=== PATIENT | male | born 1955 | race Caucasian/White ===

== ENCOUNTER 2018-02-15 23:38 | Emergency (ER) | payer MEDICAID ==
[~2018-02-15] VITALS: Ht 180.3 cm; Wt 81.0 kg
[2018-02-15 23:45] VITALS: BP 144/106
== END 2018-02-16 00:30 | disposition left against medical advice (07) ==
LOC: ER 23:45
DX: Z53.21 Procedure and treatment not carried out due to patient leaving prior to being seen by health care provider (principal)

== ENCOUNTER 2018-10-22 12:27 | Inpatient (IN) | payer MEDICAID ==
[~2018-10-22] VITALS: Ht 185.4 cm; Wt 85.7 kg
[2018-10-22] MEDS ORDERED: KETOROLAC 60MG/2ML VIAL IM STA (15:44)
[2018-10-22 16:47] LABS: BASOPHILS % 0.7 % (0.0-2.0); EOSINOPHILS % 2.2 % (0.0-5.0); HEMATOCRIT. 47.2 % (42.0-52.0); HEMOGLOBIN. 16.2 g/dL (14.0-18.0); LYMPHOCYTES % 23.7 % (20.0-50.0); MEAN CORPUSCULAR HEMOGLOBIN 29.8 pg (28.0-32.0); MEAN CORPUSCULAR VOLUME 86.6 fL (80.0-94.0); MONOCYTES % 7.8 % (2.0-8.0); NEUTROPHILS % 65.6 % (40.0-76.0); PLATELET 194 x1000/uL (130-400); RED BLOOD CELL COUNT 5.45 mill/uL (4.7-6.1); RED CELL DISTRIBUTION WIDTH 15.1 % (11.6-14.6)
[2018-10-22 16:50] LABS: CHLORIDE 100 mEq/L (98-107)
[2018-10-22] MEDS ORDERED: SODIUM CHLORIDE 0.9% 1,000 ML IV ONE (17:11)
[2018-10-22] MEDS ORDERED: KCL 20MEQ/100ML PREMIX 100 ML IV ONE (17:45)
[2018-10-22] MEDS ORDERED: POTASSIUM CHLORIDE 20MEQ TABLET SR PO ONE (17:45)
[2018-10-22 18:08] LABS: PROTHROMBIN TIME 10.2 sec (9.6-11.0)
[2018-10-22 18:30] LABS: CHLORIDE 100 mEq/L (98-107)
[2018-10-22 18:34] LABS: ETHANOL BLOOD < 10 mg/dL
[2018-10-22] MEDS ORDERED: HYDROCODONE/ACETAMINOPHEN 5/325MG TABLET PO NR (18:48)
[2018-10-22] MEDS ORDERED: IBUPROFEN 600MG TABLET PO PRN (20:00)
[2018-10-22] MEDS ORDERED: CLONIDINE 0.1MG TABLET PO ONE (21:15)
[2018-10-22] MEDS ORDERED: CLON2TAB PO (23:15)
[2018-10-22] MEDS ORDERED: HYDR-4009 PO (23:15)
[2018-10-22 23:20] VITALS: BP 168/100
[2018-10-22 23:25] LABS: CHLORIDE 108 mEq/L (98-107)
[2018-10-22 23:28] VITALS: BP_SYST 116; BP_SYST 168; BP_DIAS 100; BP_DIAS 116
[2018-10-23] MEDS ORDERED: DEXTROSE 50% WATER 50ML SYRINGE IV PRN
[2018-10-23] MEDS: CLONAZEPAM 1MG TABLET PO SCH ×3 (00:08→17:48)
[2018-10-23] MEDS: HYDROCODONE/ACETAMINOPHEN 10/325MG TABLET PO PRN ×5 (00:09→21:42)
[2018-10-23] MEDS: LISINOPRIL 20MG TABLET PO SCH ×2 (00:09→08:28)
[2018-10-23] MEDS ORDERED: POTASSIUM CHLORIDE INJ 40 MEQ in DEXT 5% WATER 250 ML IV SCH ×2 (01:00→10:30)
[2018-10-23] MEDS: SODIUM CHLORIDE 0.9% 1,000 ML IV SCH (01:42)
[2018-10-23 02:30] VITALS: BP 146/74
[2018-10-23 04:00] VITALS: BP 106/76
[2018-10-23] MEDS: BLOOD SUGAR DIAGNOSTIC STRIP TEST SCH ×4 (05:30→21:23)
[2018-10-23 07:55] LABS: CHLORIDE 109 mEq/L (98-107)
[2018-10-23 08:00] VITALS: BP 116/85
[2018-10-23] MEDS: INSULIN LISPRO 100 UNITS/ML SUBCUT SCH ×4 (08:27→21:27)
[2018-10-23] MEDS: ENOXAPARIN 40MG/0.4ML SYR SUBCUT SCH (08:28)
[2018-10-23] MEDS ORDERED: POTASSIUM CHLORIDE 20MEQ TABLET SR PO SCH (10:30)
[2018-10-23 12:00] VITALS: BP 112/75
[2018-10-23 15:28] LABS: CREATINE KINASE 229 IU/L (39-308)
[2018-10-23 16:00] VITALS: BP 136/91
[2018-10-23 20:00] VITALS: BP 117/79
[2018-10-23] MEDS: GABAPENTIN 300MG CAPSULE PO SCH (21:26)
[2018-10-24 00:56] VITALS: BP 132/91
[2018-10-24] MEDS ORDERED: MORPHINE SULFATE 2 MG/ML CPJ (NOT FOR IM USE) IV SCH (01:00)
[2018-10-24] MEDS: HYDROCODONE/ACETAMINOPHEN 10/325MG TABLET PO PRN ×5 (02:30→21:02)
[2018-10-24] MEDS: SODIUM CHLORIDE 0.9% 1,000 ML IV SCH ×3 (02:33→16:49)
[2018-10-24 04:00] VITALS: BP 130/87
[2018-10-24] MEDS: GABAPENTIN 300MG CAPSULE PO SCH ×3 (05:29→21:03)
[2018-10-24 06:54] LABS: CHLORIDE 112 mEq/L (98-107)
[2018-10-24] MEDS: BLOOD SUGAR DIAGNOSTIC STRIP TEST SCH ×4 (07:40→21:02)
[2018-10-24 08:00] VITALS: BP_SYST 131; BP_SYST 136; BP_DIAS 78; BP_DIAS 81
[2018-10-24] MEDS: CLONAZEPAM 1MG TABLET PO SCH ×2 (08:39→17:14)
[2018-10-24] MEDS: INSULIN LISPRO 100 UNITS/ML SUBCUT SCH ×4 (08:41→21:02)
[2018-10-24] MEDS: LISINOPRIL 20MG TABLET PO SCH (08:42)
[2018-10-24] MEDS: ENOXAPARIN 40MG/0.4ML SYR SUBCUT SCH (08:42)
[2018-10-24] MEDS ORDERED: POTASSIUM CHLORIDE 20MEQ TABLET SR PO SCH (10:30)
[2018-10-24 12:00] VITALS: BP 136/95
[2018-10-24] MEDS ORDERED: POTASSIUM CHLORIDE INJ 40 MEQ in DEXT 5% WATER 250 ML IV SCH (12:00)
[2018-10-24 16:00] VITALS: BP 128/76
[2018-10-24 20:00] VITALS: BP 135/86
[2018-10-24 20:12] LABS: CHLORIDE 111 mEq/L (98-107)
[2018-10-24] MEDS ORDERED: DIPHENHYDRAMINE 50MG CAPSULE PO PRN (23:45)
[2018-10-25] VITALS: BP 157/89
[2018-10-25] MEDS ORDERED: POTASSIUM CHLORIDE INJ 40 MEQ in DEXT 5% WATER 250 ML IV SCH ×2
[2018-10-25] MEDS: HYDROCODONE/ACETAMINOPHEN 10/325MG TABLET PO PRN ×2 (01:04→05:34)
[2018-10-25 04:00] VITALS: BP 136/91
[2018-10-25] MEDS: GABAPENTIN 300MG CAPSULE PO SCH (05:34)
[2018-10-25] MEDS: BLOOD SUGAR DIAGNOSTIC STRIP TEST SCH (07:40)
[2018-10-25 08:00] VITALS: BP 148/98
[2018-10-25] MEDS: CLONAZEPAM 1MG TABLET PO SCH (08:48)
[2018-10-25] MEDS: LISINOPRIL 20MG TABLET PO SCH (08:49)
[2018-10-25] MEDS: ENOXAPARIN 40MG/0.4ML SYR SUBCUT SCH (08:49)
[2018-10-25] MEDS: INSULIN LISPRO 100 UNITS/ML SUBCUT SCH (08:52)
[2018-10-25 10:33] VITALS: BP 145/91
== END 2018-10-25 12:43 | disposition home or self-care (01) | DRG 425 ==
LOC: ER 12:27 → 7WST 20:02 → ENRESERV 21:36
PROVIDERS: ADMIT Internal Medicine; ATTEND Internal Medicine
DX: E87.6 Hypokalemia (principal); E11.65 Type 2 diabetes mellitus with hyperglycemia; M79.10 Myalgia, unspecified site; E78.00 Pure hypercholesterolemia, unspecified; I10 Essential (primary) hypertension; M10.9 Gout, unspecified; M19.90 Unspecified osteoarthritis, unspecified site; Z96.659 Presence of unspecified artificial knee joint; F32.9 Major depressive disorder, single episode, unspecified; G89.29 Other chronic pain
CPT/HCPCS: 36415; 71045; 80048; 80320; 82550; 82962; 83735; 84132; 84484; 86430; 93005; 96374; 99285; J1650; J1815; J1885; J2270; J3480; J7030; J7060; Q0163; G0480

== ENCOUNTER 2019-02-26 23:48 | Emergency (ER) | payer MEDICAID ==
[~2019-02-26] VITALS: Ht 180.3 cm; Wt 83.0 kg
[~2019-02-26 23:48] MED LIST: CLON2TAB PO
[2019-02-27] MEDS ORDERED: KETOROLAC 60MG/2ML VIAL IM ONE (03:00)
[2019-02-27 03:30] VITALS: BP 132/90
== END 2019-02-27 03:33 | disposition home or self-care (01) ==
LOC: ER 23:48
DX: M19.91 Primary osteoarthritis, unspecified site (principal); G89.29 Other chronic pain
CPT/HCPCS: 96372; 99283; J1885; Z7610

== ENCOUNTER 2019-03-27 23:41 | Emergency (ER) | payer MEDICAID ==
[~2019-03-27] VITALS: Ht 180.3 cm; Wt 82.0 kg
[2019-03-28] MEDS ORDERED: SODIUM CHLORIDE 0.9% 1,000 ML IV ONE (03:54)
[2019-03-28] MEDS ORDERED: MORPHINE SULFATE 4 MG/ML CPJ (NOT FOR IM USE) IV SCH (04:06)
[2019-03-28] MEDS ORDERED: METOCLOPRAMIDE HCL 10MG/2ML VIAL IV SCH (04:07)
[2019-03-28] MEDS ORDERED: GABAPENTIN 300MG CAPSULE PO ONE (04:15)
[2019-03-28 04:31] LABS: BASOPHILS % 0.6 % (0.0-2.0); EOSINOPHILS % 3.7 % (0.0-5.0); HEMATOCRIT. 38.6 % (42.0-52.0); HEMOGLOBIN. 13.3 g/dL (14.0-18.0); LYMPHOCYTES % 28.1 % (20.0-50.0); MEAN CORPUSCULAR HEMOGLOBIN 30.7 pg (28.0-32.0); MEAN CORPUSCULAR VOLUME 89.1 fL (80.0-94.0); MEAN PLATELET VOLUME 10.9 fl (7.4-10.4); MONOCYTES % 7.6 % (2.0-8.0); PLATELET 174 x1000/uL (130-400); RED BLOOD CELL COUNT 4.33 mill/uL (4.7-6.1); RED CELL DISTRIBUTION WIDTH 14.3 % (11.6-14.6)
[2019-03-28 04:39] LABS: PROTHROMBIN TIME 10.7 sec (9.6-11.0)
[2019-03-28 04:43] LABS: CHLORIDE 112 mEq/L (98-107)
[2019-03-28] MEDS ORDERED: MORPHINE SULFATE 4 MG/ML CPJ (NOT FOR IM USE) IV ONE (05:00)
[2019-03-28 09:21] VITALS: BP 142/92
[2019-03-28] MEDS ORDERED: TRAMADOL 50MG TABLET PO ONE (09:45)
[2019-03-28] MEDS ORDERED: DEXAMETHASONE 4MG TABLET PO ONE (09:45)
== END 2019-03-28 11:05 | disposition home or self-care (01) ==
LOC: ER 23:41
DX: M19.042 Primary osteoarthritis, left hand (principal); M19.041 Primary osteoarthritis, right hand; M19.072 Primary osteoarthritis, left ankle and foot; M19.071 Primary osteoarthritis, right ankle and foot; E11.9 Type 2 diabetes mellitus without complications; F20.9 Schizophrenia, unspecified; M10.9 Gout, unspecified; F31.9 Bipolar disorder, unspecified; I10 Essential (primary) hypertension; E78.00 Pure hypercholesterolemia, unspecified; F17.200 Nicotine dependence, unspecified, uncomplicated; Z79.899 Other long term (current) drug therapy
CPT/HCPCS: 36415; 80053; 83605; 83690; 83880; 84484; 85025; 85610; 96374; 99283; J2270; J8540

== ENCOUNTER 2019-04-05 23:17 | Emergency (ER) | payer MEDICAID ==
[~2019-04-05] VITALS: Ht 180.3 cm; Wt 82.0 kg
[2019-04-06] MEDS ORDERED: KETOROLAC 60MG/2ML VIAL IM ONE (00:30)
[2019-04-06 02:51] VITALS: BP 146/89
== END 2019-04-06 02:55 | disposition home or self-care (01) ==
LOC: ER 23:17
DX: M19.072 Primary osteoarthritis, left ankle and foot (principal); M19.071 Primary osteoarthritis, right ankle and foot; M19.042 Primary osteoarthritis, left hand; M19.041 Primary osteoarthritis, right hand; F31.9 Bipolar disorder, unspecified; E11.9 Type 2 diabetes mellitus without complications; E78.00 Pure hypercholesterolemia, unspecified; I10 Essential (primary) hypertension; F20.9 Schizophrenia, unspecified; F17.210 Nicotine dependence, cigarettes, uncomplicated; Z98.890 Other specified postprocedural states
CPT/HCPCS: 96372; 99283; 99406; J1885; Z7610

== ENCOUNTER 2019-07-13 11:07 | Inpatient (IN) | payer MEDICAID ==
[~2019-07-13] VITALS: Ht 182.9 cm; Wt 83.9 kg
[2019-07-13] MEDS ORDERED: KETOROLAC 30MG/ML VIAL IV STA (12:55)
[2019-07-13 13:28] LABS: BASOPHILS % 0.7 % (0.0-2.0); EOSINOPHILS % 0.9 % (0.0-5.0); HEMATOCRIT. 42.8 % (42.0-52.0); HEMOGLOBIN. 14.7 g/dL (14.0-18.0); LYMPHOCYTES % 14.4 % (20.0-50.0); MEAN CORPUSCULAR HEMOGLOBIN 29.6 pg (28.0-32.0); MEAN CORPUSCULAR VOLUME 86.3 fL (80.0-94.0); MEAN PLATELET VOLUME 9.8 fl (7.4-10.4); MONOCYTES % 5.6 % (2.0-8.0); NEUTROPHILS % 78.4 % (40.0-76.0); PLATELET 148 x1000/uL (130-400); RED BLOOD CELL COUNT 4.96 mill/uL (4.7-6.1); RED CELL DISTRIBUTION WIDTH 13.4 % (11.6-14.6)
[2019-07-13 13:33] LABS: CHLORIDE 96 mEq/L (98-107)
[2019-07-13 13:37] LABS: ETHANOL BLOOD < 10 mg/dL
[2019-07-13] MEDS ORDERED: SODIUM CHLORIDE 0.9% 1,000 ML IV ONE (13:45)
[2019-07-13] MEDS ORDERED: INSULIN REGULAR (HUMULIN R) 300UNITS/3ML SUBCUT ONE (13:45)
[2019-07-13 15:58] LABS: CLARITY URINE CLEAR (CLEAR); COLOR URINE YELLOW (YELLOW); KETONES URINE NEGATIVE (NEGATIVE); LEUKOCYTE ESTERASE URINE NEGATIVE (NEGATIVE); NITRITE URINE NEGATIVE (NEGATIVE); OCCULT BLOOD URINE NEGATIVE (NEGATIVE); PROTEIN URINE NEGATIVE (NEGATIVE); SPECIFIC GRAVITY URINE 1.011 (1.005-1.030); UROBILINOGEN URINE 0.2 E.U./dL (0.2-1.0)
[2019-07-13 16:18] LABS: *AMPHETAMINES SCREEN URINE NEGATIVE (NEGATIVE); *BARBITURATES SCREEN URINE NEGATIVE (NEGATIVE)
[2019-07-13 16:19] LABS: *BENZODIAZEPINES SCREEN URINE NEGATIVE (NEGATIVE); *COCAINE SCREEN URINE NEGATIVE (NEGATIVE); CANNABINOID URINE SCREEN NEGATIVE (NEGATIVE); METHADONE URINE SCREEN NEGATIVE (NEGATIVE); OPIATES URINE SCREEN NEGATIVE (NEGATIVE); PHENCYCLIDINE URINE SCREEN NEGATIVE (NEGATIVE)
[2019-07-13] MEDS ORDERED: IOHEXOL-350 100 ML BOTTLE ONE (16:31)
[2019-07-13] MEDS ORDERED: HYDROCODONE/ACETAMINOPHEN 5/325MG TABLET PO ONE (17:15)
[2019-07-13] MEDS ORDERED: CLONIDINE 0.1MG TABLET PO PRN (18:30)
[2019-07-13] MEDS ORDERED: ONDANSETRON HCL 4MG/2ML INJ IV PRN (18:30)
[2019-07-13] MEDS ORDERED: ACETAMINOPHEN 325MG TABLET PO PRN (18:30)
[2019-07-13] MEDS ORDERED: DEXTROSE 50% WATER 50ML SYRINGE IV PRN (18:45)
[2019-07-13] MEDS ORDERED: POTASSIUM CHLORIDE 20MEQ TABLET SR PO NR (20:30)
[2019-07-13] MEDS ORDERED: ASPIRIN 81MG TABLET PO NR (20:30)
[2019-07-13] MEDS: BLOOD SUGAR DIAGNOSTIC STRIP TEST SCH (21:00)
[2019-07-13] MEDS: CLONAZEPAM 1MG TABLET PO PRN (21:36)
[2019-07-13] MEDS: HYDROCODONE/ACETAMINOPHEN 5/325MG TABLET PO PRN (21:36)
[2019-07-13] MEDS ORDERED: INSULIN GLARGINE UD 100 UNITS/ML SYR SUBCUT SCH (22:00)
[2019-07-13] MEDS: INSULIN LISPRO 100 UNITS/ML SUBCUT SCH (22:15)
[2019-07-13] MEDS: ENOXAPARIN 40MG/0.4ML SYR SUBCUT SCH (22:17)
[2019-07-14] VITALS (7 sets, daily range): BP systolic 100–163; BP diastolic 67–99
[2019-07-14] MEDS ORDERED: INSULIN GLARGINE UD 100 UNITS/ML SYR SUBCUT SCH (02:00)
[2019-07-14] MEDS: HYDROCODONE/ACETAMINOPHEN 5/325MG TABLET PO PRN ×5 (02:33→20:20)
[2019-07-14 06:07] LABS: CHLORIDE 104 mEq/L (98-107)
[2019-07-14 06:18] LABS: LDL CHOLESTEROL 112 mg/dL (5-100)
[2019-07-14 06:20] LABS: HDL CHOLESTEROL 29 mg/dL (40-59)
[2019-07-14] MEDS ORDERED: PNEUMOCOCCAL 23-VAL P-SAC VAC 0.5 ML IM ONE (08:00)
[2019-07-14 08:17] LABS: BASOPHILS % 0.9 % (0.0-2.0); EOSINOPHILS % 2.8 % (0.0-5.0); HEMATOCRIT. 40.5 % (42.0-52.0); HEMOGLOBIN. 13.7 g/dL (14.0-18.0); LYMPHOCYTES % 23.4 % (20.0-50.0); MEAN CORPUSCULAR HEMOGLOBIN 29.1 pg (28.0-32.0); MEAN CORPUSCULAR VOLUME 85.6 fL (80.0-94.0); MEAN PLATELET VOLUME 10.3 fl (7.4-10.4); MONOCYTES % 6.7 % (2.0-8.0); NEUTROPHILS % 66.2 % (40.0-76.0); PLATELET 140 x1000/uL (130-400); RED BLOOD CELL COUNT 4.73 mill/uL (4.7-6.1); RED CELL DISTRIBUTION WIDTH 13.6 % (11.6-14.6)
[2019-07-14] MEDS: BLOOD SUGAR DIAGNOSTIC STRIP TEST SCH ×4 (08:30→20:20)
[2019-07-14] MEDS: INSULIN LISPRO 100 UNITS/ML SUBCUT SCH ×4 (08:54→20:38)
[2019-07-14] MEDS ORDERED: POTASSIUM CHLORIDE INJ 40 MEQ in DEXT 5% WATER 250 ML IV SCH (11:30)
[2019-07-14] MEDS: CLONAZEPAM 1MG TABLET PO PRN (13:13)
[2019-07-14] MEDS ORDERED: POTASSIUM CHLORIDE 20MEQ TABLET SR PO SCH (13:30)
[2019-07-14] MEDS ORDERED: INSULIN LISPRO 100 UNITS/ML SUBCUT SCH (17:40)
[2019-07-14] MEDS: ENOXAPARIN 40MG/0.4ML SYR SUBCUT SCH (20:20)
[2019-07-14] MEDS ORDERED: GABAPENTIN 300MG CAPSULE PO SCH (22:00)
== END 2019-07-14 20:55 | disposition left against medical advice (07) | DRG 48 ==
LOC: ER 11:07 → 7WST 17:08 → ENRESERV 23:02
PROVIDERS: ADMIT Internal Medicine; ATTEND Internal Medicine
DX: M54.12 Radiculopathy, cervical region (principal); E11.40 Type 2 diabetes mellitus with diabetic neuropathy, unspecified; E11.65 Type 2 diabetes mellitus with hyperglycemia; F20.9 Schizophrenia, unspecified; E78.00 Pure hypercholesterolemia, unspecified; E78.5 Hyperlipidemia, unspecified; F31.9 Bipolar disorder, unspecified; I10 Essential (primary) hypertension; Z53.29 Procedure and treatment not carried out because of patient's decision for other reasons; Z96.659 Presence of unspecified artificial knee joint; M54.9 Dorsalgia, unspecified; G89.29 Other chronic pain; M10.9 Gout, unspecified; M13.0 Polyarthritis, unspecified; F41.9 Anxiety disorder, unspecified; Z83.3 Family history of diabetes mellitus; Z82.49 Family history of ischemic heart disease and other diseases of the circulatory system
CPT/HCPCS: 36415; 70496; 70498; 70551; 72141; 80048; 80053; 80061; 80305; 80320; 81003; 82962; 83036; 84443; 85025; 93005; 93970; 99285; J1650; J1815; J1885; J3480; J7030; J7060; Q9967; G0480

== ENCOUNTER 2019-10-19 12:54 | Emergency (ER) | payer MEDICAID, OTHER ==
[~2019-10-19] VITALS: Ht 180.3 cm; Wt 82.0 kg
[2019-10-19] MEDS ORDERED: CEPHALEXIN 250MG CAPSULE PO ONE (14:15)
[2019-10-19] MEDS ORDERED: HYDROCODONE/ACETAMINOPHEN 5/325MG TABLET PO ONE (14:15)
[2019-10-19 14:53] VITALS: BP 128/78
== END 2019-10-19 14:53 | disposition home or self-care (01) ==
LOC: ER 12:54
DX: L02.411 Cutaneous abscess of right axilla (principal); E11.9 Type 2 diabetes mellitus without complications; I10 Essential (primary) hypertension; E78.00 Pure hypercholesterolemia, unspecified; F20.9 Schizophrenia, unspecified; Z98.890 Other specified postprocedural states; Z96.659 Presence of unspecified artificial knee joint
CPT/HCPCS: 99283

== ENCOUNTER 2019-11-12 19:08 | Inpatient (IN) | payer OTHER ==
[~2019-11-12] VITALS: Ht 175.3 cm; Wt 81.2 kg
[2019-11-12 21:18] LABS: BASOPHILS % 0.6 % (0.0-2.0); EOSINOPHILS % 3.3 % (0.0-5.0); HEMATOCRIT. 36.2 % (42.0-52.0); HEMOGLOBIN. 12.4 g/dL (14.0-18.0); LYMPHOCYTES % 23.3 % (20.0-50.0); MEAN CORPUSCULAR HEMOGLOBIN 30.6 pg (28.0-32.0); MEAN CORPUSCULAR VOLUME 89.2 fL (80.0-94.0); MEAN PLATELET VOLUME 10.2 fl (7.4-10.4); MONOCYTES % 6.6 % (2.0-8.0); NEUTROPHILS % 66.2 % (40.0-76.0); PLATELET 161 x1000/uL (130-400); RED BLOOD CELL COUNT 4.06 mill/uL (4.7-6.1); RED CELL DISTRIBUTION WIDTH 15.9 % (11.6-14.6)
[2019-11-12 21:31] LABS: CHLORIDE 106 mEq/L (98-107)
[2019-11-12] MEDS ORDERED: ASPIRIN 325MG EC TABLET PO ONE (22:15)
[2019-11-13] VITALS (7 sets, daily range): BP systolic 121–151; BP diastolic 77–95
[2019-11-13] MEDS ORDERED: MIRT-91 PO (01:04)
[2019-11-13] MEDS ORDERED: DOXE100C4 PO (01:04)
[2019-11-13] MEDS ORDERED: LURA40TA PO (01:04)
[2019-11-13] MEDS ORDERED: CLON2TAB PO (01:06)
[2019-11-13] MEDS ORDERED: DEXTROSE 50% WATER 50ML SYRINGE IV PRN (01:15)
[2019-11-13] MEDS ORDERED: NITROGLYCERIN 0.4MG TABLET SL SL PRN (01:15)
[2019-11-13] MEDS: HYDROCODONE/ACETAMINOPHEN 10/325MG TABLET PO PRN ×3 (01:53→13:38)
[2019-11-13] MEDS: BLOOD SUGAR DIAGNOSTIC STRIP TEST SCH ×4 (07:16→21:01)
[2019-11-13] MEDS: INSULIN LISPRO 100 UNITS/ML SUBCUT SCH ×4 (07:17→21:00)
[2019-11-13 07:29] LABS: HEMATOCRIT 36.8 % (42.0-52.0); HEMOGLOBIN 12.6 g/dL (14.0-18.0); MEAN CORPUSCULAR HEMOGLOBIN 30.3 pg (28.0-32.0); MEAN CORPUSCULAR VOLUME 88.4 fL (80.0-94.0); PLATELET 154 x1000/uL (130-400); RED BLOOD CELL COUNT 4.16 mill/uL (4.7-6.1); RED CELL DISTRIBUTION WIDTH 15.7 % (11.6-14.6)
[2019-11-13 07:45] LABS: CHLORIDE 105 mEq/L (98-107)
[2019-11-13 07:53] LABS: LDL CHOLESTEROL 120 mg/dL (5-100)
[2019-11-13 07:55] LABS: CREATINE KINASE 461 IU/L (39-308); HDL CHOLESTEROL 28 mg/dL (40-59)
[2019-11-13 07:58] LABS: CREATINE KINASE MB FRACTION 5.5 ng/mL (0.5-3.6)
[2019-11-13] MEDS: LATUDA 40 MG PO SCH (08:53)
[2019-11-13] MEDS: ASPIRIN 325MG EC TABLET PO SCH (08:54)
[2019-11-13] MEDS: METOPROLOL TARTRATE 50MG TABLET PO SCH ×2 (08:54→21:01)
[2019-11-13] MEDS ORDERED: POTASSIUM CHLORIDE 20MEQ TABLET SR PO SCH (12:00)
[2019-11-13] MEDS: CLONAZEPAM 1MG TABLET PO SCH ×2 (12:30→20:56)
[2019-11-13] MEDS ORDERED: ERGOCALCIFEROL 50000UNITS CAPSULE PO SCH (15:00)
[2019-11-13 16:16] LABS: CREATINE KINASE MB FRACTION 4.2 ng/mL (0.5-3.6)
[2019-11-13] MEDS: ENOXAPARIN 40MG/0.4ML SYR SUBCUT SCH (17:29)
[2019-11-13] MEDS: DOXEPIN HCL 25MG CAPSULE PO SCH (20:56)
[2019-11-13] MEDS: ATORVASTATIN CALCIUM 40MG TABLET PO SCH (20:56)
[2019-11-13] MEDS: MIRTAZAPINE 15MG TABLET PO SCH (20:56)
[2019-11-14] VITALS: BP 158/97
[2019-11-14] MEDS: HYDROCODONE/ACETAMINOPHEN 10/325MG TABLET PO PRN ×3 (00:37→21:33)
[2019-11-14 04:00] VITALS: BP 155/97
[2019-11-14] MEDS: BLOOD SUGAR DIAGNOSTIC STRIP TEST SCH ×4 (06:57→21:20)
[2019-11-14] MEDS: INSULIN LISPRO 100 UNITS/ML SUBCUT SCH ×4 (07:40→21:39)
[2019-11-14 08:00] VITALS: BP 151/92
[2019-11-14] MEDS: LATUDA 40 MG PO SCH (08:12)
[2019-11-14] MEDS: METOPROLOL TARTRATE 50MG TABLET PO SCH ×2 (08:12→21:27)
[2019-11-14] MEDS: ASPIRIN 325MG EC TABLET PO SCH (08:12)
[2019-11-14] MEDS: ENOXAPARIN 40MG/0.4ML SYR SUBCUT SCH (08:12)
[2019-11-14] MEDS: INSULIN GLARGINE UD 100 UNITS/ML SYR SUBCUT SCH ×2 (10:00→21:38)
[2019-11-14 12:00] VITALS: BP 170/95
[2019-11-14] MEDS: CLONAZEPAM 1MG TABLET PO SCH ×2 (12:31→21:27)
[2019-11-14] MEDS ORDERED: CLONIDINE 0.1MG TABLET PO PRN (13:15)
[2019-11-14] MEDS: AMLODIPINE 10MG TABLET PO SCH (13:39)
[2019-11-14 16:00] VITALS: BP 139/87
[2019-11-14 20:00] VITALS: BP 135/87
[2019-11-14] MEDS: DOXEPIN HCL 25MG CAPSULE PO SCH (21:25)
[2019-11-14] MEDS: MIRTAZAPINE 15MG TABLET PO SCH (21:26)
[2019-11-14] MEDS: ATORVASTATIN CALCIUM 40MG TABLET PO SCH (21:27)
[2019-11-15] VITALS: BP 110/73
[2019-11-15] MEDS: HYDROCODONE/ACETAMINOPHEN 10/325MG TABLET PO PRN ×3 (02:42→10:17)
[2019-11-15 04:00] VITALS: BP 121/87
[2019-11-15] MEDS: INSULIN LISPRO 100 UNITS/ML SUBCUT SCH (06:27)
[2019-11-15] MEDS: BLOOD SUGAR DIAGNOSTIC STRIP TEST SCH (06:27)
[2019-11-15] MEDS ORDERED: GLIPIZIDE 5MG TABLET PO SCH (07:10)
[2019-11-15 08:00] VITALS: BP 106/64
[2019-11-15] MEDS: AMLODIPINE 10MG TABLET PO SCH (09:00)
[2019-11-15] MEDS: METOPROLOL TARTRATE 50MG TABLET PO SCH (09:00)
[2019-11-15] MEDS: ASPIRIN 325MG EC TABLET PO SCH (10:17)
[2019-11-15] MEDS: LATUDA 40 MG PO SCH (10:18)
[2019-11-15] MEDS: ENOXAPARIN 40MG/0.4ML SYR SUBCUT SCH (10:18)
[2019-11-15] MEDS: INSULIN GLARGINE UD 100 UNITS/ML SYR SUBCUT SCH (10:19)
[2019-11-15 11:38] VITALS: BP 106/64
== END 2019-11-15 12:45 | disposition home or self-care (01) | DRG 347 ==
LOC: ER 19:08 → 8WST 22:12 → EDBEDREQTM 22:18 → EDBEDREQ 22:18 → ENRESERV 22:59
PROVIDERS: ADMIT Internal Medicine; ATTEND Internal Medicine
DX: M48.061 Spinal stenosis, lumbar region without neurogenic claudication (principal); G82.50 Quadriplegia, unspecified; E11.42 Type 2 diabetes mellitus with diabetic polyneuropathy; E46 Unspecified protein-calorie malnutrition; M48.02 Spinal stenosis, cervical region; G62.89 Other specified polyneuropathies; F20.9 Schizophrenia, unspecified; I11.0 Hypertensive heart disease with heart failure; I50.9 Heart failure, unspecified; M62.82 Rhabdomyolysis; E78.5 Hyperlipidemia, unspecified; D64.9 Anemia, unspecified; E87.6 Hypokalemia; R79.89 Other specified abnormal findings of blood chemistry; R26.9 Unspecified abnormalities of gait and mobility; E78.00 Pure hypercholesterolemia, unspecified; R29.6 Repeated falls; E55.9 Vitamin D deficiency, unspecified; F31.9 Bipolar disorder, unspecified; F17.210 Nicotine dependence, cigarettes, uncomplicated; I25.10 Atherosclerotic heart disease of native coronary artery without angina pectoris; Z86.73 Personal history of transient ischemic attack (TIA), and cerebral infarction without residual deficits; Z68.26 Body mass index [BMI] 26.0-26.9, adult
CPT/HCPCS: 36415; 73502; 80053; 80061; 82550; 82553; 82962; 83036; 84484; 85025; 85027; 93005; 97162; 97166; 97535; 99285; J1650; J1815

== ENCOUNTER 2020-01-20 22:38 | Emergency (ER) | payer MEDICAID, OTHER ==
[~2020-01-20] VITALS: Ht 180.3 cm; Wt 77.0 kg
[~2020-01-20 22:38] MED LIST changes: +DOXE100C4 PO; +LURA40TA PO; +MIRT-91 PO
[2020-01-20 22:51] VITALS: BP 144/99
== END 2020-01-20 23:16 | disposition left against medical advice (07) ==
LOC: ER 22:58
DX: Z53.21 Procedure and treatment not carried out due to patient leaving prior to being seen by health care provider (principal)

== ENCOUNTER 2020-01-28 04:18 | Emergency (ER) | payer MEDICAID, OTHER ==
[~2020-01-28] VITALS: Ht 180.3 cm; Wt 79.0 kg
[2020-01-28 04:48] LABS: BASOPHILS % 1.3 % (0.0-2.0); EOSINOPHILS % 2.4 % (0.0-5.0); HEMATOCRIT. 34.8 % (42.0-52.0); HEMOGLOBIN. 12.5 g/dL (14.0-18.0); LYMPHOCYTES % 27.9 % (20.0-50.0); MEAN CORPUSCULAR HEMOGLOBIN 32.8 pg (28.0-32.0); MEAN CORPUSCULAR VOLUME 91.4 fL (80.0-94.0); MEAN PLATELET VOLUME 10.6 fl (7.4-10.4); MONOCYTES % 6.6 % (2.0-8.0); NEUTROPHILS % 61.8 % (40.0-76.0); PLATELET 210 x1000/uL (130-400); RED CELL DISTRIBUTION WIDTH 14.5 % (11.6-14.6)
[2020-01-28 04:55] LABS: CHLORIDE 107 mEq/L (98-107)
[2020-01-28 05:11] LABS: BETA HYDROXYBUTYRATE 0.2 mMol/L (0.0-0.3)
[2020-01-28] MEDS ORDERED: POTASSIUM CHLORIDE 20MEQ TABLET SR PO SCH (05:15)
[2020-01-28] MEDS ORDERED: HYDROCODONE/ACETAMINOPHEN 5/325MG TABLET PO ONE (06:30)
[2020-01-28 09:00] VITALS: BP 133/80
== END 2020-01-28 09:34 | disposition home or self-care (01) ==
LOC: ER 04:18
DX: M19.90 Unspecified osteoarthritis, unspecified site (principal); E11.9 Type 2 diabetes mellitus without complications; I10 Essential (primary) hypertension; E78.00 Pure hypercholesterolemia, unspecified; Z79.899 Other long term (current) drug therapy; Z98.890 Other specified postprocedural states
CPT/HCPCS: 36415; 71045; 80053; 82010; 82962; 83880; 84484; 85025; 93005; 99285

== ENCOUNTER 2020-02-12 22:11 | Emergency (ER) | payer MEDICAID, OTHER ==
[~2020-02-12] VITALS: Ht 175.3 cm; Wt 73.0 kg
[2020-02-12 22:42] VITALS: BP 149/97
[2020-02-12] MEDS ORDERED: ACETAMINOPHEN 650MG/20.3ML UDC PO ONE (23:00)
[2020-02-12 23:34] LABS: CHLORIDE 101 mEq/L (98-107)
[2020-02-13] MEDS ORDERED: POTASSIUM CHLORIDE 20MEQ TABLET SR PO SCH ×2 (01:00)
== END 2020-02-13 01:42 | disposition home or self-care (01) ==
LOC: ER 22:11
DX: M19.90 Unspecified osteoarthritis, unspecified site (principal); E87.6 Hypokalemia; E11.65 Type 2 diabetes mellitus with hyperglycemia; E78.00 Pure hypercholesterolemia, unspecified; I10 Essential (primary) hypertension; Z96.659 Presence of unspecified artificial knee joint; Z79.899 Other long term (current) drug therapy
CPT/HCPCS: 36415; 80053; 84484; 93005; 99284

== ENCOUNTER 2020-03-22 18:33 | Emergency (ER) | payer MEDICAID, OTHER ==
[~2020-03-22] VITALS: Ht 177.8 cm; Wt 80.0 kg
[2020-03-22] MEDS ORDERED: SODIUM CHLORIDE 0.9% 1,000 ML IV ONE (22:45)
[2020-03-22 23:56] LABS: BASOPHILS % 0.6 % (0.0-2.0); EOSINOPHILS % 1.9 % (0.0-5.0); HEMOGLOBIN. 13.3 g/dL (14.0-18.0); LYMPHOCYTES % 21.2 % (20.0-50.0); MEAN CORPUSCULAR HEMOGLOBIN 31.9 pg (28.0-32.0); MEAN CORPUSCULAR VOLUME 91.1 fL (80.0-94.0); MEAN PLATELET VOLUME 9.3 fl (7.4-10.4); MONOCYTES % 7.4 % (2.0-8.0); NEUTROPHILS % 68.9 % (40.0-76.0); PLATELET 274 x1000/uL (130-400); RED BLOOD CELL COUNT 4.17 mill/uL (4.7-6.1); RED CELL DISTRIBUTION WIDTH 14.1 % (11.6-14.6)
[2020-03-22 23:58] LABS: CHLORIDE 109 mEq/L (98-107)
[2020-03-23 00:05] LABS: ETHANOL BLOOD < 10 mg/dL
[2020-03-23] MEDS ORDERED: KETOROLAC 15MG/ML VIAL IV ONE (00:15)
[2020-03-23 01:35] LABS: *COCAINE SCREEN URINE NEGATIVE (NEGATIVE); METHADONE URINE SCREEN NEGATIVE (NEGATIVE); OPIATES URINE SCREEN NEGATIVE (NEGATIVE)
[2020-03-23 01:36] LABS: *AMPHETAMINES SCREEN URINE NEGATIVE (NEGATIVE); *BARBITURATES SCREEN URINE NEGATIVE (NEGATIVE); *BENZODIAZEPINES SCREEN URINE NEGATIVE (NEGATIVE); CANNABINOID URINE SCREEN NEGATIVE (NEGATIVE); PHENCYCLIDINE URINE SCREEN NEGATIVE (NEGATIVE)
[2020-03-23] MEDS ORDERED: HYDROCODONE/ACETAMINOPHEN 5/325MG TABLET PO ONE (02:30)
[2020-03-23] MEDS ORDERED: POTASSIUM CHLORIDE 20MEQ TABLET SR PO SCH (03:00)
[2020-03-23 03:17] VITALS: BP 149/94
== END 2020-03-23 03:50 | disposition home or self-care (01) ==
LOC: ER 18:33
DX: M19.042 Primary osteoarthritis, left hand (principal); M19.041 Primary osteoarthritis, right hand; I10 Essential (primary) hypertension; E87.6 Hypokalemia; E11.65 Type 2 diabetes mellitus with hyperglycemia; E78.00 Pure hypercholesterolemia, unspecified; R77.8 Other specified abnormalities of plasma proteins
CPT/HCPCS: 36415; 71045; 80053; 80305; 80307; 80320; 80329; 83605; 83880; 84484; 85025; 93005; 96361; 96374; 99285; J1885; J7030; G0480

== ENCOUNTER 2020-07-25 21:15 | Inpatient (IN) | payer MEDICAID, OTHER ==
[~2020-07-25] VITALS: Ht 172.7 cm; Wt 67.6 kg
[2020-07-25] MEDS ORDERED: SODIUM CHLORIDE 0.9% 1,000 ML IV ONE ×2 (22:00→23:45)
[2020-07-25] MEDS ORDERED: LORAZEPAM 1MG TABLET PO ONE (22:00)
[2020-07-25 23:16] LABS: BASOPHILS % 0.9 % (0.0-2.0); HEMOGLOBIN. 8.7 g/dL (14.0-18.0); LYMPHOCYTES % 18.5 % (20.0-50.0); MEAN CORPUSCULAR HEMOGLOBIN 26.2 pg (28.0-32.0); MEAN CORPUSCULAR VOLUME 78.4 fL (80.0-94.0); MEAN PLATELET VOLUME 7.4 fl (7.4-10.4); MONOCYTES % 6.6 % (2.0-8.0); PLATELET 387 x1000/uL (130-400); RED BLOOD CELL COUNT 3.32 mill/uL (4.7-6.1); RED CELL DISTRIBUTION WIDTH 15.9 % (11.6-14.6)
[2020-07-25 23:20] LABS: CHLORIDE 99 mEq/L (98-107)
[2020-07-25 23:21] LABS: INR 1.1; PROTHROMBIN TIME 11.7 sec (9.6-11.0)
[2020-07-25] MEDS ORDERED: MORPHINE SULFATE 4 MG/ML CPJ (NOT FOR IM USE) IV STA (23:38)
[2020-07-25] MEDS ORDERED: ONDANSETRON HCL 4MG/2ML INJ IV STA (23:38)
[2020-07-26] MEDS ORDERED: POTASSIUM CHLORIDE 20MEQ TABLET SR PO ONE (00:30)
[2020-07-26] MEDS ORDERED: POTASSIUM CHLORIDE INJ 40 MEQ in DEXT 5% WATER 250 ML IV ONE (00:30)
[2020-07-26] MEDS ORDERED: PIPERACILLIN SODIUM/TAZOBACTAM 4.5 G in DEXT 5% WATER 100 ML IV SCH (00:30)
[2020-07-26] MEDS ORDERED: MORPHINE SULFATE 2 MG/ML CPJ (NOT FOR IM USE) IV PRN (06:30)
[2020-07-26] MEDS ORDERED: PIPERACILLIN/TAZ 3.375G PREMIX 50 ML IV SCH ×2 (07:15→08:00)
[2020-07-26] MEDS ORDERED: ONDANSETRON HCL 4MG/2ML INJ IV PRN (07:15)
[2020-07-26] MEDS ORDERED: LORAZEPAM 2MG/ML CPJ IV PRN (07:15)
[2020-07-26] MEDS ORDERED: MAGNESIUM/ALUMINUM HYDROXIDE/SIMETHICONE 30ML UDC PO PRN (07:15)
[2020-07-26] MEDS ORDERED: NA PHOS,M-B/NA PHOS,DI-BA ENEMA 118ML PR PRN (07:15)
[2020-07-26] MEDS ORDERED: IPRATROPIUM/ALBUTEROL 0.5-3(2.5)MG/3ML NEB NEB PRN (07:15)
[2020-07-26] MEDS ORDERED: DOCUSATE SODIUM 100MG CAPSULE PO PRN (07:15)
[2020-07-26] MEDS ORDERED: GUAIFENESIN 200MG/10ML SUGAR FREE UDC PO PRN (07:15)
[2020-07-26] MEDS ORDERED: ACETAMINOPHEN 325MG TABLET PO PRN (07:15)
[2020-07-26] MEDS ORDERED: VANCOMYCIN 1 G PREMIX 200 ML IV SCH (08:00)
[2020-07-26 09:00] VITALS: BP 149/82
[2020-07-26] MEDS: HYDROCODONE/ACETAMINOPHEN 5/325MG TABLET PO PRN ×3 (09:20→18:50)
[2020-07-26] MEDS: ASPIRIN 81MG EC TABLET PO SCH (11:01)
[2020-07-26] MEDS: ENOXAPARIN 40MG/0.4ML SYR SUBCUT SCH (11:02)
[2020-07-26] MEDS: MORPHINE SULFATE 2 MG/ML CPJ (NOT FOR IM USE) IV PRN ×3 (11:02→21:06)
[2020-07-26] MEDS: PIPERACILLIN/TAZOBACTAM 3.375 G in DEXT 5% WATER 100 ML IV SCH ×2 (15:36→21:08)
[2020-07-26 15:45] LABS: CHLORIDE 106 mEq/L (98-107)
[2020-07-26 20:00] VITALS: BP 141/82
[2020-07-26] MEDS: VANCOMYCIN 1 G PREMIX 200 ML IV SCH (21:07)
[2020-07-27] VITALS: BP 138/70
[2020-07-27] MEDS: HYDROCODONE/ACETAMINOPHEN 5/325MG TABLET PO PRN ×2 (00:25→06:48)
[2020-07-27] MEDS: MORPHINE SULFATE 2 MG/ML CPJ (NOT FOR IM USE) IV PRN ×6 (04:32→23:13)
[2020-07-27] MEDS: PIPERACILLIN/TAZOBACTAM 3.375 G in DEXT 5% WATER 100 ML IV SCH ×4 (05:45→19:10)
[2020-07-27] MEDS: VANCOMYCIN 1 G PREMIX 200 ML IV SCH ×2 (05:46→20:34)
[2020-07-27 07:03] LABS: BASOPHILS % 1.1 % (0.0-2.0); EOSINOPHILS % 1.7 % (0.0-5.0); HEMATOCRIT. 26.7 % (42.0-52.0); HEMOGLOBIN. 8.9 g/dL (14.0-18.0); LYMPHOCYTES % 21.1 % (20.0-50.0); MEAN CORPUSCULAR HEMOGLOBIN 26.4 pg (28.0-32.0); MEAN CORPUSCULAR VOLUME 79.5 fL (80.0-94.0); MEAN PLATELET VOLUME 7.7 fl (7.4-10.4); NEUTROPHILS % 68.1 % (40.0-76.0); PLATELET 369 x1000/uL (130-400); RED BLOOD CELL COUNT 3.36 mill/uL (4.7-6.1); RED CELL DISTRIBUTION WIDTH 16.5 % (11.6-14.6)
[2020-07-27 08:00] VITALS: BP 130/86
[2020-07-27 08:08] LABS: CHLORIDE 107 mEq/L (98-107)
[2020-07-27 08:17] LABS: LDL CHOLESTEROL 131 mg/dL (5-100)
[2020-07-27 08:19] LABS: HDL CHOLESTEROL 34 mg/dL (40-59); T4 FREE 1.24 ng/dL (0.76-1.46)
[2020-07-27] MEDS: ENOXAPARIN 40MG/0.4ML SYR SUBCUT SCH (09:52)
[2020-07-27] MEDS: ASPIRIN 81MG EC TABLET PO SCH (09:53)
[2020-07-27] MEDS ORDERED: POTASSIUM CHLORIDE 20MEQ TABLET SR PO SCH (11:00)
[2020-07-27] MEDS: HYDROCODONE/ACETAMINOPHEN 10/325MG TABLET PO PRN ×2 (11:11→15:28)
[2020-07-27 12:00] VITALS: BP 149/91
[2020-07-27] MEDS ORDERED: POTASSIUM CHLORIDE INJ 40 MEQ in DEXT 5% WATER 250 ML IV SCH (12:00)
[2020-07-27 20:00] VITALS: BP 175/98
[2020-07-27] MEDS: CLONIDINE 0.1MG TABLET PO PRN (20:17)
[2020-07-28] VITALS: BP 140/87
[2020-07-28] MEDS: HYDROCODONE/ACETAMINOPHEN 10/325MG TABLET PO PRN ×5 (00:35→20:13)
[2020-07-28] MEDS: PIPERACILLIN/TAZOBACTAM 3.375 G in DEXT 5% WATER 100 ML IV SCH ×4 (00:36→18:17)
[2020-07-28] MEDS: MORPHINE SULFATE 2 MG/ML CPJ (NOT FOR IM USE) IV PRN ×5 (02:59→23:13)
[2020-07-28 04:00] VITALS: BP 112/60
[2020-07-28 06:58] LABS: CHLORIDE 104 mEq/L (98-107)
[2020-07-28 08:00] VITALS: BP 156/96
[2020-07-28] MEDS: ASPIRIN 81MG EC TABLET PO SCH (08:42)
[2020-07-28] MEDS: ENOXAPARIN 40MG/0.4ML SYR SUBCUT SCH (08:43)
[2020-07-28] MEDS: VANCOMYCIN 1 G PREMIX 200 ML IV SCH ×2 (08:43→20:12)
[2020-07-28 12:00] VITALS: BP 151/94
[2020-07-28 16:00] VITALS: BP 152/92
[2020-07-28 20:00] VITALS: BP 128/86
[2020-07-28] MEDS ORDERED: POTASSIUM CHLORIDE 20MEQ TABLET SR PO NR (20:45)
[2020-07-29] VITALS: BP 130/89
[2020-07-29] MEDS: HYDROCODONE/ACETAMINOPHEN 10/325MG TABLET PO PRN ×6 (01:17→23:51)
[2020-07-29] MEDS: PIPERACILLIN/TAZOBACTAM 3.375 G in DEXT 5% WATER 100 ML IV SCH ×5 (01:17→23:51)
[2020-07-29 04:00] VITALS: BP 153/89
[2020-07-29] MEDS: MORPHINE SULFATE 2 MG/ML CPJ (NOT FOR IM USE) IV PRN ×5 (04:08→21:18)
[2020-07-29 08:00] VITALS: BP 142/92
[2020-07-29] MEDS: VANCOMYCIN 1 G PREMIX 200 ML IV SCH ×2 (08:05→19:52)
[2020-07-29] MEDS: ASPIRIN 81MG EC TABLET PO SCH (08:05)
[2020-07-29] MEDS: ENOXAPARIN 40MG/0.4ML SYR SUBCUT SCH (08:06)
[2020-07-29 10:09] LABS: BASOPHILS % 1.2 % (0.0-2.0); EOSINOPHILS % 4.3 % (0.0-5.0); HEMATOCRIT. 26.5 % (42.0-52.0); HEMOGLOBIN. 8.7 g/dL (14.0-18.0); LYMPHOCYTES % 22.7 % (20.0-50.0); MEAN CORPUSCULAR HEMOGLOBIN 26.5 pg (28.0-32.0); MEAN CORPUSCULAR VOLUME 80.8 fL (80.0-94.0); MEAN PLATELET VOLUME 7.9 fl (7.4-10.4); MONOCYTES % 7.6 % (2.0-8.0); NEUTROPHILS % 64.2 % (40.0-76.0); PLATELET 267 x1000/uL (130-400); RED BLOOD CELL COUNT 3.28 mill/uL (4.7-6.1); RED CELL DISTRIBUTION WIDTH 17.1 % (11.6-14.6)
[2020-07-29 10:22] LABS: CHLORIDE 105 mEq/L (98-107)
[2020-07-29 16:00] VITALS: BP 139/87
[2020-07-29 20:00] VITALS: BP 160/85
[2020-07-29] MEDS ORDERED: DEXTROSE 50% WATER 50ML SYRINGE IV PRN (20:15)
[2020-07-29] MEDS: BLOOD SUGAR DIAGNOSTIC STRIP TEST SCH (20:47)
[2020-07-29] MEDS: INSULIN LISPRO 100 UNITS/ML SUBCUT SCH (21:02)
[2020-07-29] MEDS ORDERED: POTASSIUM CHLORIDE 20MEQ TABLET SR PO SCH (21:45)
[2020-07-30] VITALS: BP 151/88
[2020-07-30] MEDS: MORPHINE SULFATE 2 MG/ML CPJ (NOT FOR IM USE) IV PRN ×6 (01:03→22:13)
[2020-07-30] MEDS: HYDROCODONE/ACETAMINOPHEN 10/325MG TABLET PO PRN ×5 (03:53→20:53)
[2020-07-30 04:00] VITALS: BP 139/89
[2020-07-30] MEDS: PIPERACILLIN/TAZOBACTAM 3.375 G in DEXT 5% WATER 100 ML IV SCH ×3 (05:05→17:53)
[2020-07-30] MEDS: BLOOD SUGAR DIAGNOSTIC STRIP TEST SCH ×4 (06:57→20:34)
[2020-07-30] MEDS: INSULIN LISPRO 100 UNITS/ML SUBCUT SCH ×4 (06:58→21:05)
[2020-07-30 08:00] VITALS: BP 143/84
[2020-07-30] MEDS: ASPIRIN 81MG EC TABLET PO SCH (08:03)
[2020-07-30] MEDS: ENOXAPARIN 40MG/0.4ML SYR SUBCUT SCH (08:03)
[2020-07-30] MEDS: VANCOMYCIN 1 G PREMIX 200 ML IV SCH ×2 (08:08→20:34)
[2020-07-30 12:00] VITALS: BP 153/96
[2020-07-30 16:00] VITALS: BP 140/84
[2020-07-30 20:00] VITALS: BP 145/89
[2020-07-31] VITALS: BP 135/85
[2020-07-31] MEDS: HYDROCODONE/ACETAMINOPHEN 10/325MG TABLET PO PRN ×5 (00:55→20:25)
[2020-07-31] MEDS: MORPHINE SULFATE 2 MG/ML CPJ (NOT FOR IM USE) IV PRN ×5 (02:04→22:28)
[2020-07-31 04:00] VITALS: BP 163/89
[2020-07-31] MEDS: BLOOD SUGAR DIAGNOSTIC STRIP TEST SCH ×4 (06:26→20:57)
[2020-07-31] MEDS: INSULIN LISPRO 100 UNITS/ML SUBCUT SCH ×4 (06:27→20:56)
[2020-07-31 08:00] VITALS: BP 151/89
[2020-07-31] MEDS: ASPIRIN 81MG EC TABLET PO SCH (09:00)
[2020-07-31] MEDS: ENOXAPARIN 40MG/0.4ML SYR SUBCUT SCH (09:00)
[2020-07-31] MEDS: VANCOMYCIN 1 G PREMIX 200 ML IV SCH (10:12)
[2020-07-31 12:00] VITALS: BP 151/91
[2020-07-31] MEDS ORDERED: BACITRACIN 15GM TUBE TOP ONE (14:40)
[2020-07-31] MEDS ORDERED: BUPIVACAINE HCL 0.5% (5MG/ML) 50ML ONE (14:40)
[2020-07-31] MEDS ORDERED: LIDOCAINE HCL 1% 20ML VIAL (Pyxis) INJ ONE (14:40)
[2020-07-31] MEDS ORDERED: BACITRACIN 50,000 UNITS/VIAL ONE (14:41)
[2020-07-31] MEDS ORDERED: FENTANYL CITRATE/PF 50MCG/ML 2ML VIAL ONE (15:46)
[2020-07-31] MEDS ORDERED: PROPOFOL 200MG/20ML VIAL IV ONE (15:46)
[2020-07-31] MEDS ORDERED: MIDAZOLAM HCL 2 MG/2 ML VIAL ONE (15:47)
[2020-07-31] MEDS ORDERED: ONDANSETRON HCL 4MG/2ML INJ ONE (16:04)
[2020-07-31] MEDS ORDERED: DEXAMETHASONE 4MG/ML 1ML VIAL ONE (16:04)
[2020-07-31] MEDS ORDERED: LABETALOL 5MG/ML SYR 20 MG/4 ML SYRINGE IV PRN (16:15)
[2020-07-31] MEDS ORDERED: ONDANSETRON HCL 4MG/2ML INJ IV PRN (16:15)
[2020-07-31] MEDS ORDERED: HYDROMORPHONE HCL/PF 2MG/ML CPJ IV PRN (16:15)
[2020-07-31] MEDS ORDERED: MEPERIDINE HCL/PF 25MG/ML CPJ IV PRN (16:15)
[2020-07-31] MEDS: HYDROMORPHONE HCL/PF 2MG/ML CPJ IV PRN ×2 (16:28→17:06)
[2020-07-31 17:00] VITALS: BP 131/76
[2020-07-31 20:00] VITALS: BP 132/85
[2020-07-31 20:05] LABS: CHLORIDE 105 mEq/L (98-107)
[2020-07-31] MEDS: LINEZOLID 600MG TABLET PO SCH (20:25)
[2020-08-01] VITALS: BP 116/73
[2020-08-01] MEDS: HYDROCODONE/ACETAMINOPHEN 10/325MG TABLET PO PRN ×4 (00:40→22:35)
[2020-08-01 04:00] VITALS: BP 138/86
[2020-08-01] MEDS: MORPHINE SULFATE 2 MG/ML CPJ (NOT FOR IM USE) IV PRN ×3 (04:52→13:13)
[2020-08-01] MEDS: BLOOD SUGAR DIAGNOSTIC STRIP TEST SCH ×4 (06:23→21:46)
[2020-08-01] MEDS: INSULIN LISPRO 100 UNITS/ML SUBCUT SCH ×4 (06:23→21:00)
[2020-08-01 08:00] VITALS: BP 145/84
[2020-08-01] MEDS: LINEZOLID 600MG TABLET PO SCH (08:41)
[2020-08-01] MEDS: ASPIRIN 81MG EC TABLET PO SCH (08:41)
[2020-08-01] MEDS: ENOXAPARIN 40MG/0.4ML SYR SUBCUT SCH (08:42)
[2020-08-01 12:00] VITALS: BP 141/79
[2020-08-01] MEDS: INSULIN GLARGINE UD 100 UNITS/ML SYR SUBCUT SCH (12:27)
[2020-08-01 16:00] VITALS: BP 112/61
[2020-08-01] MEDS: CEFTRIAXONE 2 G in DEXTROSE 5% WATER 50 ML IV SCH (17:19)
[2020-08-01] MEDS: METRONIDAZOLE 500MG TABLET PO SCH (17:19)
[2020-08-01] MEDS: DAPTOMYCIN 400 MG in SODIUM CHLORIDE 0.9% 50 ML IV SCH (18:17)
[2020-08-01 20:00] VITALS: BP 130/75
[2020-08-02] VITALS: BP 133/78
[2020-08-02] MEDS: HYDROCODONE/ACETAMINOPHEN 10/325MG TABLET PO PRN ×5 (02:40→20:04)
[2020-08-02 04:00] VITALS: BP 167/90
[2020-08-02] MEDS: BLOOD SUGAR DIAGNOSTIC STRIP TEST SCH ×4 (06:57→20:07)
[2020-08-02] MEDS: INSULIN LISPRO 100 UNITS/ML SUBCUT SCH ×4 (06:58→20:47)
[2020-08-02 07:18] LABS: C REACTIVE PROTEIN QUANT 2.1 mg/L (0.0-3.0)
[2020-08-02 08:00] VITALS: BP 157/99
[2020-08-02] MEDS: ASPIRIN 81MG EC TABLET PO SCH (08:48)
[2020-08-02] MEDS: METRONIDAZOLE 500MG TABLET PO SCH ×2 (08:48→16:00)
[2020-08-02] MEDS: ENOXAPARIN 40MG/0.4ML SYR SUBCUT SCH (08:49)
[2020-08-02] MEDS: INSULIN GLARGINE UD 100 UNITS/ML SYR SUBCUT SCH (10:07)
[2020-08-02 12:00] VITALS: BP 139/82
[2020-08-02] MEDS: MORPHINE SULFATE 2 MG/ML CPJ (NOT FOR IM USE) IV PRN ×3 (13:05→22:12)
[2020-08-02 15:48] VITALS: BP 158/92
[2020-08-02] MEDS: CEFTRIAXONE 2 G in DEXTROSE 5% WATER 50 ML IV SCH (16:00)
[2020-08-02] MEDS: DAPTOMYCIN 400 MG in SODIUM CHLORIDE 0.9% 50 ML IV SCH (17:01)
[2020-08-02 20:00] VITALS: BP 143/87
[2020-08-03] VITALS: BP 133/86
[2020-08-03] MEDS: HYDROCODONE/ACETAMINOPHEN 10/325MG TABLET PO PRN ×6 (00:23→21:56)
[2020-08-03] MEDS: MORPHINE SULFATE 2 MG/ML CPJ (NOT FOR IM USE) IV PRN ×5 (02:32→20:07)
[2020-08-03 04:00] VITALS: BP 170/118
[2020-08-03] MEDS: CLONIDINE 0.1MG TABLET PO PRN (04:47)
[2020-08-03] MEDS: BLOOD SUGAR DIAGNOSTIC STRIP TEST SCH ×4 (06:35→20:34)
[2020-08-03] MEDS: INSULIN LISPRO 100 UNITS/ML SUBCUT SCH ×4 (06:36→20:38)
[2020-08-03 08:00] VITALS: BP 122/80
[2020-08-03] MEDS: ASPIRIN 81MG EC TABLET PO SCH (08:57)
[2020-08-03] MEDS: METRONIDAZOLE 500MG TABLET PO SCH ×2 (08:57→16:06)
[2020-08-03] MEDS: ENOXAPARIN 40MG/0.4ML SYR SUBCUT SCH (08:58)
[2020-08-03] MEDS: INSULIN GLARGINE UD 100 UNITS/ML SYR SUBCUT SCH (10:47)
[2020-08-03 12:00] VITALS: BP 151/91
[2020-08-03] MEDS: CEFTRIAXONE 2 G in DEXTROSE 5% WATER 50 ML IV SCH (16:06)
[2020-08-03] MEDS: DAPTOMYCIN 400 MG in SODIUM CHLORIDE 0.9% 50 ML IV SCH (17:23)
[2020-08-04] VITALS: BP 157/79
[2020-08-04] MEDS: MORPHINE SULFATE 2 MG/ML CPJ (NOT FOR IM USE) IV PRN ×6 (00:27→21:18)
[2020-08-04] MEDS: HYDROCODONE/ACETAMINOPHEN 10/325MG TABLET PO PRN ×6 (01:55→23:20)
[2020-08-04 04:00] VITALS: BP 162/95
[2020-08-04] MEDS: BLOOD SUGAR DIAGNOSTIC STRIP TEST SCH ×4 (06:13→21:18)
[2020-08-04] MEDS: INSULIN LISPRO 100 UNITS/ML SUBCUT SCH ×4 (06:27→20:53)
[2020-08-04 08:00] VITALS: BP 143/89
[2020-08-04] MEDS: METRONIDAZOLE 500MG TABLET PO SCH ×2 (08:37→16:55)
[2020-08-04] MEDS: ENOXAPARIN 40MG/0.4ML SYR SUBCUT SCH (08:39)
[2020-08-04] MEDS: INSULIN GLARGINE UD 100 UNITS/ML SYR SUBCUT SCH (09:29)
[2020-08-04] MEDS: ASPIRIN 81MG EC TABLET PO SCH (09:29)
[2020-08-04 12:00] VITALS: BP 154/97
[2020-08-04 16:00] VITALS: BP 143/86
[2020-08-04] MEDS: CEFTRIAXONE 2 G in DEXTROSE 5% WATER 50 ML IV SCH (16:55)
[2020-08-04] MEDS: DAPTOMYCIN 400 MG in SODIUM CHLORIDE 0.9% 50 ML IV SCH (17:36)
[2020-08-04 20:00] VITALS: BP 131/79
[2020-08-05] VITALS: BP 104/71
[2020-08-05] MEDS: MORPHINE SULFATE 2 MG/ML CPJ (NOT FOR IM USE) IV PRN ×6 (01:17→23:27)
[2020-08-05] MEDS: HYDROCODONE/ACETAMINOPHEN 10/325MG TABLET PO PRN ×4 (03:35→21:05)
[2020-08-05 04:00] VITALS: BP 150/84
[2020-08-05] MEDS: BLOOD SUGAR DIAGNOSTIC STRIP TEST SCH ×4 (05:57→21:29)
[2020-08-05] MEDS: INSULIN LISPRO 100 UNITS/ML SUBCUT SCH ×4 (06:10→21:43)
[2020-08-05 08:00] VITALS: BP 152/82
[2020-08-05] MEDS: ASPIRIN 81MG EC TABLET PO SCH (09:56)
[2020-08-05] MEDS: METRONIDAZOLE 500MG TABLET PO SCH ×2 (09:56→16:44)
[2020-08-05] MEDS: ENOXAPARIN 40MG/0.4ML SYR SUBCUT SCH (09:58)
[2020-08-05] MEDS: INSULIN GLARGINE UD 100 UNITS/ML SYR SUBCUT SCH (09:59)
[2020-08-05 12:00] VITALS: BP_SYST 119; BP_SYST 129; BP_DIAS 76; BP_DIAS 88
[2020-08-05 16:00] VITALS: BP 133/68
[2020-08-05] MEDS: CEFTRIAXONE 2 G in DEXTROSE 5% WATER 50 ML IV SCH (16:48)
[2020-08-05] MEDS: DAPTOMYCIN 400 MG in SODIUM CHLORIDE 0.9% 50 ML IV SCH (18:49)
[2020-08-05 20:00] VITALS: BP 120/78
[2020-08-06] VITALS: BP 130/85
[2020-08-06] MEDS: HYDROCODONE/ACETAMINOPHEN 10/325MG TABLET PO PRN ×4 (01:18→20:10)
[2020-08-06 04:00] VITALS: BP 146/83
[2020-08-06] MEDS: MORPHINE SULFATE 2 MG/ML CPJ (NOT FOR IM USE) IV PRN ×4 (04:09→16:03)
[2020-08-06] MEDS: BLOOD SUGAR DIAGNOSTIC STRIP TEST SCH ×3 (05:47→16:40)
[2020-08-06 08:00] VITALS: BP 142/79
[2020-08-06] MEDS: ENOXAPARIN 40MG/0.4ML SYR SUBCUT SCH (08:29)
[2020-08-06] MEDS: ASPIRIN 81MG EC TABLET PO SCH (08:30)
[2020-08-06] MEDS: METRONIDAZOLE 500MG TABLET PO SCH ×2 (08:30→16:54)
[2020-08-06] MEDS: INSULIN LISPRO 100 UNITS/ML SUBCUT SCH ×4 (08:31→23:16)
[2020-08-06] MEDS: INSULIN GLARGINE UD 100 UNITS/ML SYR SUBCUT SCH (10:31)
[2020-08-06 12:00] VITALS: BP 136/76
[2020-08-06 12:26] LABS: BASOPHILS % 1.1 % (0.0-2.0); EOSINOPHILS % 4.9 % (0.0-5.0); HEMOGLOBIN. 9.4 g/dL (14.0-18.0); LYMPHOCYTES % 25.6 % (20.0-50.0); MEAN CORPUSCULAR HEMOGLOBIN 27.6 pg (28.0-32.0); MEAN CORPUSCULAR VOLUME 82.6 fL (80.0-94.0); MEAN PLATELET VOLUME 9.1 fl (7.4-10.4); MONOCYTES % 7.5 % (2.0-8.0); NEUTROPHILS % 60.9 % (40.0-76.0); PLATELET 210 x1000/uL (130-400); RED BLOOD CELL COUNT 3.39 mill/uL (4.7-6.1); RED CELL DISTRIBUTION WIDTH 19.2 % (11.6-14.6)
[2020-08-06 12:34] LABS: CHLORIDE 107 mEq/L (98-107)
[2020-08-06 12:42] LABS: CREATINE KINASE 32 IU/L (39-308)
[2020-08-06] MEDS ORDERED: POTASSIUM CHLORIDE 20MEQ TABLET SR PO SCH ×2 (13:30→17:00)
[2020-08-06 16:00] VITALS: BP 170/80
[2020-08-06] MEDS: CEFTRIAXONE 2 G in DEXTROSE 5% WATER 50 ML IV SCH (16:53)
[2020-08-06] MEDS: DAPTOMYCIN 400 MG in SODIUM CHLORIDE 0.9% 50 ML IV SCH (16:54)
[2020-08-06 20:00] VITALS: BP 138/85
[2020-08-06 21:41] LABS: CHLORIDE 108 mEq/L (98-107)
[2020-08-07] VITALS: BP 143/92
[2020-08-07] MEDS: DIPHENHYDRAMINE 50MG/ML VIAL IV PRN (00:38)
[2020-08-07] MEDS: HYDROCODONE/ACETAMINOPHEN 10/325MG TABLET PO PRN ×6 (00:40→22:39)
[2020-08-07 04:00] VITALS: BP 154/89
[2020-08-07] MEDS: INSULIN LISPRO 100 UNITS/ML SUBCUT SCH ×4 (06:23→22:59)
[2020-08-07 08:00] VITALS: BP 165/99
[2020-08-07 09:30] LABS: CHLORIDE 107 mEq/L (98-107)
[2020-08-07] MEDS: METRONIDAZOLE 500MG TABLET PO SCH ×2 (09:43→17:51)
[2020-08-07] MEDS: ASPIRIN 81MG EC TABLET PO SCH (09:43)
[2020-08-07] MEDS: ENOXAPARIN 40MG/0.4ML SYR SUBCUT SCH (09:43)
[2020-08-07] MEDS: INSULIN GLARGINE UD 100 UNITS/ML SYR SUBCUT SCH (09:51)
[2020-08-07 12:00] VITALS: BP 147/94
[2020-08-07] MEDS ORDERED: POTASSIUM CHLORIDE 20MEQ TABLET SR PO SCH (12:15)
[2020-08-07] MEDS: GABAPENTIN 100MG CAPSULE PO SCH ×2 (12:55→22:37)
[2020-08-07] MEDS: BLOOD SUGAR DIAGNOSTIC STRIP TEST SCH ×3 (12:58→21:00)
[2020-08-07 16:00] VITALS: BP 161/93
[2020-08-07] MEDS: CEFTRIAXONE 2 G in DEXTROSE 5% WATER 50 ML IV SCH (17:51)
[2020-08-07] MEDS: DAPTOMYCIN 400 MG in SODIUM CHLORIDE 0.9% 50 ML IV SCH (18:35)
[2020-08-07 20:00] VITALS: BP 104/55
[2020-08-08] MEDS: HYDROCODONE/ACETAMINOPHEN 10/325MG TABLET PO PRN ×6 (02:03→23:19)
[2020-08-08] MEDS: GABAPENTIN 100MG CAPSULE PO SCH ×3 (06:43→23:15)
[2020-08-08] MEDS: BLOOD SUGAR DIAGNOSTIC STRIP TEST SCH ×4 (06:43→21:46)
[2020-08-08] MEDS: INSULIN LISPRO 100 UNITS/ML SUBCUT SCH ×4 (07:50→21:45)
[2020-08-08 08:00] VITALS: BP 143/93
[2020-08-08] MEDS: ASPIRIN 81MG EC TABLET PO SCH (10:41)
[2020-08-08] MEDS: ENOXAPARIN 40MG/0.4ML SYR SUBCUT SCH (10:42)
[2020-08-08] MEDS: METRONIDAZOLE 500MG TABLET PO SCH ×2 (10:42→17:00)
[2020-08-08] MEDS: INSULIN GLARGINE UD 100 UNITS/ML SYR SUBCUT SCH (10:47)
[2020-08-08] MEDS: CEFTRIAXONE 2 G in DEXTROSE 5% WATER 50 ML IV SCH (18:02)
[2020-08-08] MEDS: DAPTOMYCIN 400 MG in SODIUM CHLORIDE 0.9% 50 ML IV SCH (18:41)
[2020-08-08 20:00] VITALS: BP 147/90
[2020-08-09] VITALS: BP 133/79
[2020-08-09] MEDS: HYDROCODONE/ACETAMINOPHEN 10/325MG TABLET PO PRN ×4 (03:50→20:41)
[2020-08-09 04:00] VITALS: BP 144/90
[2020-08-09] MEDS: GABAPENTIN 100MG CAPSULE PO SCH ×3 (06:51→21:00)
[2020-08-09] MEDS: BLOOD SUGAR DIAGNOSTIC STRIP TEST SCH ×4 (07:20→20:26)
[2020-08-09] MEDS: INSULIN LISPRO 100 UNITS/ML SUBCUT SCH ×4 (07:28→21:03)
[2020-08-09] MEDS: METRONIDAZOLE 500MG TABLET PO SCH ×2 (08:34→17:00)
[2020-08-09] MEDS: ASPIRIN 81MG EC TABLET PO SCH (08:34)
[2020-08-09] MEDS: ENOXAPARIN 40MG/0.4ML SYR SUBCUT SCH (08:37)
[2020-08-09 10:05] VITALS: BP 140/90
[2020-08-09] MEDS: INSULIN GLARGINE UD 100 UNITS/ML SYR SUBCUT SCH (10:28)
[2020-08-09] MEDS ORDERED: MORPHINE SULFATE 2 MG/ML CPJ (NOT FOR IM USE) IV NR (11:00)
[2020-08-09 12:00] VITALS: BP 148/89
[2020-08-09] MEDS: DIPHENHYDRAMINE 50MG/ML VIAL IV PRN (13:05)
[2020-08-09] MEDS: MORPHINE SULFATE 2 MG/ML CPJ (NOT FOR IM USE) IV NR ×2 (13:17→18:38)
[2020-08-09 16:00] VITALS: BP 123/77
[2020-08-09] MEDS: CEFTRIAXONE 2 G in DEXTROSE 5% WATER 50 ML IV SCH (18:36)
[2020-08-09 20:00] VITALS: BP 137/86
[2020-08-09] MEDS: MORPHINE SULFATE 2 MG/ML CPJ (NOT FOR IM USE) IV PRN (22:37)
[2020-08-10] VITALS: BP 138/84
[2020-08-10] MEDS: HYDROCODONE/ACETAMINOPHEN 10/325MG TABLET PO PRN ×6 (00:44→22:39)
[2020-08-10] MEDS: MORPHINE SULFATE 2 MG/ML CPJ (NOT FOR IM USE) IV PRN ×5 (02:47→20:17)
[2020-08-10 04:00] VITALS: BP 146/84
[2020-08-10] MEDS: GABAPENTIN 100MG CAPSULE PO SCH ×3 (05:05→22:39)
[2020-08-10] MEDS: BLOOD SUGAR DIAGNOSTIC STRIP TEST SCH ×4 (06:54→20:42)
[2020-08-10 08:00] VITALS: BP 146/90
[2020-08-10] MEDS: ASPIRIN 81MG EC TABLET PO SCH (09:10)
[2020-08-10] MEDS: ENOXAPARIN 40MG/0.4ML SYR SUBCUT SCH (09:10)
[2020-08-10] MEDS: METRONIDAZOLE 500MG TABLET PO SCH ×2 (09:12→16:15)
[2020-08-10] MEDS: INSULIN LISPRO 100 UNITS/ML SUBCUT SCH ×4 (09:20→20:42)
[2020-08-10] MEDS: INSULIN GLARGINE UD 100 UNITS/ML SYR SUBCUT SCH (11:21)
[2020-08-10 12:00] VITALS: BP 145/91
[2020-08-10 16:00] VITALS: BP 117/81
[2020-08-10] MEDS: CEFTRIAXONE 2 G in DEXTROSE 5% WATER 50 ML IV SCH (16:15)
[2020-08-10] MEDS: DAPTOMYCIN 400 MG in SODIUM CHLORIDE 0.9% 50 ML IV SCH ×2 (17:35→18:21)
[2020-08-10 21:05] VITALS: BP 141/89
[2020-08-11] VITALS: BP 115/78
[2020-08-11] MEDS: MORPHINE SULFATE 2 MG/ML CPJ (NOT FOR IM USE) IV PRN ×3 (00:18→08:39)
[2020-08-11] MEDS: HYDROCODONE/ACETAMINOPHEN 10/325MG TABLET PO PRN ×4 (02:43→15:37)
[2020-08-11 04:46] VITALS: BP 154/88
[2020-08-11] MEDS: GABAPENTIN 100MG CAPSULE PO SCH (06:18)
[2020-08-11] MEDS: BLOOD SUGAR DIAGNOSTIC STRIP TEST SCH ×4 (06:39→21:19)
[2020-08-11 08:00] VITALS: BP 147/99
[2020-08-11] MEDS: ASPIRIN 81MG EC TABLET PO SCH (08:38)
[2020-08-11] MEDS: METRONIDAZOLE 500MG TABLET PO SCH ×2 (08:38→17:00)
[2020-08-11] MEDS: ENOXAPARIN 40MG/0.4ML SYR SUBCUT SCH (08:38)
[2020-08-11] MEDS: INSULIN LISPRO 100 UNITS/ML SUBCUT SCH ×3 (08:47→17:50)
[2020-08-11] MEDS: INSULIN GLARGINE UD 100 UNITS/ML SYR SUBCUT SCH (11:08)
[2020-08-11 12:00] VITALS: BP 160/82
[2020-08-11] MEDS: GABAPENTIN 300MG CAPSULE PO SCH ×2 (13:08→21:19)
[2020-08-11 16:00] VITALS: BP 135/82
[2020-08-11] MEDS: CEFTRIAXONE 2 G in DEXTROSE 5% WATER 50 ML IV SCH (17:00)
[2020-08-11] MEDS: DAPTOMYCIN 400 MG in SODIUM CHLORIDE 0.9% 50 ML IV SCH (17:52)
[2020-08-11] MEDS ORDERED: MORPHINE SULFATE 2 MG/ML CPJ (NOT FOR IM USE) IV NR (18:00)
[2020-08-11 20:00] VITALS: BP 144/91
[2020-08-11] MEDS ORDERED: MORPHINE SULFATE 15MG TABLET SR PO SCH (21:00)
[2020-08-11] MEDS: MORPHINE SULFATE 15MG TABLET SR PO SCH (21:18)
[2020-08-12] VITALS: BP 112/84
[2020-08-12] MEDS: INSULIN LISPRO 100 UNITS/ML SUBCUT SCH ×5 (00:48→22:35)
[2020-08-12 04:00] VITALS: BP 131/80
[2020-08-12] MEDS: MORPHINE SULFATE 15MG TABLET SR PO SCH ×3 (04:25→20:35)
[2020-08-12] MEDS: GABAPENTIN 300MG CAPSULE PO SCH ×3 (06:16→22:31)
[2020-08-12] MEDS: BLOOD SUGAR DIAGNOSTIC STRIP TEST SCH ×4 (06:17→21:00)
[2020-08-12 08:00] VITALS: BP 163/103
[2020-08-12] MEDS: METRONIDAZOLE 500MG TABLET PO SCH ×2 (08:28→16:15)
[2020-08-12] MEDS: ASPIRIN 81MG EC TABLET PO SCH (08:28)
[2020-08-12] MEDS: OXYCODONE HCL 10MG TABLET SR 12HR PO PRN ×3 (08:29→18:35)
[2020-08-12] MEDS: ENOXAPARIN 40MG/0.4ML SYR SUBCUT SCH (08:30)
[2020-08-12] MEDS: INSULIN GLARGINE UD 100 UNITS/ML SYR SUBCUT SCH (11:24)
[2020-08-12 12:00] VITALS: BP 104/76
[2020-08-12 16:00] VITALS: BP 148/89
[2020-08-12] MEDS: CEFTRIAXONE 2 G in DEXTROSE 5% WATER 50 ML IV SCH (16:16)
[2020-08-12] MEDS: DAPTOMYCIN 400 MG in SODIUM CHLORIDE 0.9% 50 ML IV SCH (17:53)
[2020-08-12 20:00] VITALS: BP 142/89
[2020-08-12] MEDS ORDERED: OXYCODONE HCL 5MG TABLET PO PRN (20:30)
[2020-08-12] MEDS: HYDROCODONE/ACETAMINOPHEN 10/325MG TABLET PO PRN (22:52)
[2020-08-13] VITALS: BP 133/83
[2020-08-13 04:00] VITALS: BP 119/79
[2020-08-13] MEDS: HYDROCODONE/ACETAMINOPHEN 10/325MG TABLET PO PRN ×5 (04:05→23:23)
[2020-08-13] MEDS: GABAPENTIN 300MG CAPSULE PO SCH ×3 (06:09→21:11)
[2020-08-13] MEDS: MORPHINE SULFATE 15MG TABLET SR PO SCH ×3 (06:10→21:11)
[2020-08-13] MEDS: BLOOD SUGAR DIAGNOSTIC STRIP TEST SCH ×4 (07:40→21:11)
[2020-08-13 08:00] VITALS: BP 118/81
[2020-08-13] MEDS: ASPIRIN 81MG EC TABLET PO SCH (09:37)
[2020-08-13] MEDS: METRONIDAZOLE 500MG TABLET PO SCH ×2 (09:37→18:12)
[2020-08-13] MEDS: ENOXAPARIN 40MG/0.4ML SYR SUBCUT SCH (09:40)
[2020-08-13] MEDS: INSULIN LISPRO 100 UNITS/ML SUBCUT SCH ×4 (09:53→21:16)
[2020-08-13] MEDS: INSULIN GLARGINE UD 100 UNITS/ML SYR SUBCUT SCH (09:54)
[2020-08-13 12:00] VITALS: BP 141/80
[2020-08-13 16:00] VITALS: BP 128/85
[2020-08-13 16:15] LABS: CREATINE KINASE 50 IU/L (39-308)
[2020-08-13] MEDS: CEFTRIAXONE 2 G in DEXTROSE 5% WATER 50 ML IV SCH (18:11)
[2020-08-13] MEDS: DAPTOMYCIN 400 MG in SODIUM CHLORIDE 0.9% 50 ML IV SCH (18:55)
[2020-08-13 20:00] VITALS: BP 125/76
[2020-08-14] VITALS: BP 141/83
[2020-08-14 04:00] VITALS: BP 92/47
[2020-08-14] MEDS: MORPHINE SULFATE 15MG TABLET SR PO SCH ×3 (04:12→20:56)
[2020-08-14] MEDS: HYDROCODONE/ACETAMINOPHEN 10/325MG TABLET PO PRN ×4 (06:03→23:21)
[2020-08-14] MEDS: GABAPENTIN 300MG CAPSULE PO SCH ×3 (06:03→21:55)
[2020-08-14] MEDS: BLOOD SUGAR DIAGNOSTIC STRIP TEST SCH ×4 (06:48→21:29)
[2020-08-14] MEDS: INSULIN LISPRO 100 UNITS/ML SUBCUT SCH ×4 (07:50→21:55)
[2020-08-14 08:00] VITALS: BP 151/97
[2020-08-14] MEDS: METRONIDAZOLE 500MG TABLET PO SCH ×2 (08:56→16:41)
[2020-08-14] MEDS: ASPIRIN 81MG EC TABLET PO SCH (08:57)
[2020-08-14] MEDS: ENOXAPARIN 40MG/0.4ML SYR SUBCUT SCH (08:58)
[2020-08-14] MEDS: INSULIN GLARGINE UD 100 UNITS/ML SYR SUBCUT SCH (10:16)
[2020-08-14 12:00] VITALS: BP 148/92
[2020-08-14 16:00] VITALS: BP 151/85
[2020-08-14] MEDS: CEFTRIAXONE 2 G in DEXTROSE 5% WATER 50 ML IV SCH (16:42)
[2020-08-14] MEDS: DAPTOMYCIN 400 MG in SODIUM CHLORIDE 0.9% 50 ML IV SCH (18:31)
[2020-08-14 20:00] VITALS: BP 133/77
[2020-08-15] VITALS: BP 148/84
[2020-08-15] MEDS: HYDROCODONE/ACETAMINOPHEN 10/325MG TABLET PO PRN ×4 (03:46→19:26)
[2020-08-15 04:00] VITALS: BP 149/80
[2020-08-15] MEDS: GABAPENTIN 300MG CAPSULE PO SCH ×3 (06:04→21:26)
[2020-08-15] MEDS: MORPHINE SULFATE 15MG TABLET SR PO SCH ×3 (06:04→21:26)
[2020-08-15 06:58] LABS: EOSINOPHILS % 4.4 % (0.0-5.0); HEMATOCRIT. 35.1 % (42.0-52.0); HEMOGLOBIN. 11.4 g/dL (14.0-18.0); LYMPHOCYTES % 21.3 % (20.0-50.0); MEAN CORPUSCULAR HEMOGLOBIN 27.5 pg (28.0-32.0); MEAN CORPUSCULAR VOLUME 84.8 fL (80.0-94.0); MEAN PLATELET VOLUME 9.6 fl (7.4-10.4); MONOCYTES % 8.1 % (2.0-8.0); NEUTROPHILS % 65.2 % (40.0-76.0); PLATELET 251 x1000/uL (130-400); RED BLOOD CELL COUNT 4.14 mill/uL (4.7-6.1); RED CELL DISTRIBUTION WIDTH 20.1 % (11.6-14.6)
[2020-08-15 07:19] LABS: CHLORIDE 107 mEq/L (98-107)
[2020-08-15] MEDS: BLOOD SUGAR DIAGNOSTIC STRIP TEST SCH ×4 (07:20→21:00)
[2020-08-15 08:00] VITALS: BP 176/98
[2020-08-15] MEDS: METRONIDAZOLE 500MG TABLET PO SCH ×2 (10:37→17:06)
[2020-08-15] MEDS: ASPIRIN 81MG EC TABLET PO SCH (10:37)
[2020-08-15] MEDS: ENOXAPARIN 40MG/0.4ML SYR SUBCUT SCH (10:38)
[2020-08-15] MEDS: INSULIN GLARGINE UD 100 UNITS/ML SYR SUBCUT SCH (11:17)
[2020-08-15] MEDS: INSULIN LISPRO 100 UNITS/ML SUBCUT SCH ×4 (11:18→21:40)
[2020-08-15 12:00] VITALS: BP 154/82
[2020-08-15 16:00] VITALS: BP 156/92
[2020-08-15] MEDS: CEFTRIAXONE 2 G in DEXTROSE 5% WATER 50 ML IV SCH (17:06)
[2020-08-15] MEDS: DAPTOMYCIN 400 MG in SODIUM CHLORIDE 0.9% 50 ML IV SCH (18:33)
[2020-08-15 20:00] VITALS: BP 150/89
[2020-08-16] VITALS: BP 129/75
[2020-08-16] MEDS: HYDROCODONE/ACETAMINOPHEN 10/325MG TABLET PO PRN ×4 (00:09→23:03)
[2020-08-16 04:00] VITALS: BP 147/87
[2020-08-16] MEDS: GABAPENTIN 300MG CAPSULE PO SCH ×3 (05:30→23:01)
[2020-08-16] MEDS: MORPHINE SULFATE 15MG TABLET SR PO SCH ×3 (05:30→20:22)
[2020-08-16] MEDS: BLOOD SUGAR DIAGNOSTIC STRIP TEST SCH ×4 (06:57→20:33)
[2020-08-16] MEDS: INSULIN LISPRO 100 UNITS/ML SUBCUT SCH ×4 (07:50→23:07)
[2020-08-16 08:00] VITALS: BP 142/96
[2020-08-16] MEDS: METRONIDAZOLE 500MG TABLET PO SCH ×2 (09:17→17:29)
[2020-08-16] MEDS: ASPIRIN 81MG EC TABLET PO SCH (09:17)
[2020-08-16] MEDS: ENOXAPARIN 40MG/0.4ML SYR SUBCUT SCH (09:17)
[2020-08-16] MEDS: INSULIN GLARGINE UD 100 UNITS/ML SYR SUBCUT SCH (09:21)
[2020-08-16 12:00] VITALS: BP 140/94
[2020-08-16 16:00] VITALS: BP 120/85
[2020-08-16] MEDS: CEFTRIAXONE 2 G in DEXTROSE 5% WATER 50 ML IV SCH (17:29)
[2020-08-16] MEDS: DAPTOMYCIN 400 MG in SODIUM CHLORIDE 0.9% 50 ML IV SCH (18:09)
[2020-08-16 20:00] VITALS: BP 137/84
[2020-08-17] VITALS: BP 130/78
[2020-08-17 04:00] VITALS: BP 125/78
[2020-08-17] MEDS: MORPHINE SULFATE 15MG TABLET SR PO SCH ×3 (05:18→21:17)
[2020-08-17] MEDS: GABAPENTIN 300MG CAPSULE PO SCH ×3 (05:20→21:16)
[2020-08-17] MEDS: BLOOD SUGAR DIAGNOSTIC STRIP TEST SCH ×4 (06:54→21:18)
[2020-08-17] MEDS: INSULIN LISPRO 100 UNITS/ML SUBCUT SCH ×4 (07:50→21:34)
[2020-08-17 08:00] VITALS: BP 152/94
[2020-08-17] MEDS: ASPIRIN 81MG EC TABLET PO SCH (09:02)
[2020-08-17] MEDS: HYDROCODONE/ACETAMINOPHEN 10/325MG TABLET PO PRN ×4 (09:03→23:12)
[2020-08-17] MEDS: METRONIDAZOLE 500MG TABLET PO SCH ×2 (09:03→18:22)
[2020-08-17] MEDS: ENOXAPARIN 40MG/0.4ML SYR SUBCUT SCH (09:04)
[2020-08-17 10:48] VITALS: BP_SYST 152; BP_SYST 156; BP_DIAS 94; BP_DIAS 98
[2020-08-17] MEDS: INSULIN GLARGINE UD 100 UNITS/ML SYR SUBCUT SCH (11:00)
[2020-08-17 16:00] VITALS: BP 140/80
[2020-08-17] MEDS ORDERED: CEFTRIAXONE 2 G in DEXTROSE 5% WATER 50 ML IV SCH (17:00)
[2020-08-17 20:00] VITALS: BP 146/83
[2020-08-17] MEDS: DAPTOMYCIN 400 MG in SODIUM CHLORIDE 0.9% 50 ML IV SCH (21:18)
[2020-08-18] VITALS: BP_SYST 146; BP_SYST 150; BP_DIAS 83; BP_DIAS 92
[2020-08-18] MEDS: HYDROCODONE/ACETAMINOPHEN 10/325MG TABLET PO PRN ×3 (03:24→15:24)
[2020-08-18 03:31] VITALS: BP 125/76
[2020-08-18] MEDS: GABAPENTIN 300MG CAPSULE PO SCH ×2 (05:14→15:23)
[2020-08-18] MEDS: MORPHINE SULFATE 15MG TABLET SR PO SCH ×2 (05:15→12:27)
[2020-08-18] MEDS: BLOOD SUGAR DIAGNOSTIC STRIP TEST SCH ×2 (06:56→12:20)
[2020-08-18] MEDS: INSULIN LISPRO 100 UNITS/ML SUBCUT SCH ×2 (07:50→12:43)
[2020-08-18 08:00] VITALS: BP 124/88
[2020-08-18] MEDS: ASPIRIN 81MG EC TABLET PO SCH (08:12)
[2020-08-18] MEDS: ENOXAPARIN 40MG/0.4ML SYR SUBCUT SCH (08:13)
[2020-08-18] MEDS: METRONIDAZOLE 500MG TABLET PO SCH (09:00)
[2020-08-18] MEDS: INSULIN GLARGINE UD 100 UNITS/ML SYR SUBCUT SCH (10:59)
[2020-08-18 12:00] VITALS: BP 156/98
[2020-08-19 04:00] VITALS: BP 136/77
== END 2020-08-18 18:27 | disposition home health service (06) | DRG 711 ==
LOC: ER 21:15 → 8WST 07-26 00:24 → ENRESERV 07-26 07:35 → 6EST 08-05 20:56
PROVIDERS: ADMIT Internal Medicine; ATTEND Internal Medicine
PROC: 0QBP0ZZ Excision of Left Metatarsal, Open Approach (ICD-10-PCS; principal; 2020-07-31)
DX: T81.49XA Infection following a procedure, other surgical site, initial encounter (principal); T81.31XA Disruption of external operation (surgical) wound, not elsewhere classified, initial encounter; A41.9 Sepsis, unspecified organism; E11.52 Type 2 diabetes mellitus with diabetic peripheral angiopathy with gangrene; E46 Unspecified protein-calorie malnutrition; I50.9 Heart failure, unspecified; I11.0 Hypertensive heart disease with heart failure; E87.6 Hypokalemia; D64.9 Anemia, unspecified; I25.10 Atherosclerotic heart disease of native coronary artery without angina pectoris; M19.90 Unspecified osteoarthritis, unspecified site; E78.00 Pure hypercholesterolemia, unspecified; D75.9 Disease of blood and blood-forming organs, unspecified; G62.9 Polyneuropathy, unspecified; Z20.822 Contact with and (suspected) exposure to COVID-19; E11.69 Type 2 diabetes mellitus with other specified complication; E11.621 Type 2 diabetes mellitus with foot ulcer; L08.9 Local infection of the skin and subcutaneous tissue, unspecified; G54.6 Phantom limb syndrome with pain; Z91.19 Patient's noncompliance with other medical treatment and regimen; Z89.432 Acquired absence of left foot; Z79.82 Long term (current) use of aspirin; Z79.4 Long term (current) use of insulin; Z79.899 Other long term (current) drug therapy; Y92.89 Other specified places as the place of occurrence of the external cause
CPT/HCPCS: 36415; 73630; 80048; 80053; 80061; 80202; 82550; 82962; 83036; 83605; 84132; 84439; 84443; 84484; 85025; 85651; 86140; 87070; 87075; 87077; 87186; 87426; 88304; 88311; 93005; 97162; 97164; 99291; J0696; J0878; J1100; J1170; J1200; J1650; J1815; J2060; J2250; J2270; J2405; J2543; J2704; J3010; J3370; J3480; J3490; J7030; J7040; J7060

== ENCOUNTER 2020-08-30 12:29 | Inpatient (IN) | payer OTHER ==
[~2020-08-30] VITALS: Ht 165.1 cm; Wt 70.4 kg
[2020-08-30] MEDS ORDERED: SODIUM CHLORIDE 0.9% 1000ML BAG (SEPSIS BOLUS) IV ONE (13:15)
[2020-08-30] MEDS ORDERED: PIPERACILLIN/TAZ 3.375G PREMIX 50 ML IV ONE (13:15)
[2020-08-30] MEDS ORDERED: VANCOMYCIN 1 G PREMIX 200 ML IV ONE (13:15)
[2020-08-30] MEDS ORDERED: HYDROMORPHONE HCL/PF 2MG/ML CPJ IV ONE (14:45)
[2020-08-30 15:05] LABS: BASOPHILS % 0.4 % (0.0-2.0); EOSINOPHILS % 1.3 % (0.0-5.0); HEMATOCRIT. 33.5 % (42.0-52.0); HEMOGLOBIN. 11.5 g/dL (14.0-18.0); LYMPHOCYTES % 11.9 % (20.0-50.0); MEAN CORPUSCULAR HEMOGLOBIN 28.3 pg (28.0-32.0); MONOCYTES % 4.8 % (2.0-8.0); NEUTROPHILS % 81.6 % (40.0-76.0); PLATELET 313 x1000/uL (130-400); RED BLOOD CELL COUNT 4.08 mill/uL (4.7-6.1); RED CELL DISTRIBUTION WIDTH 18.1 % (11.6-14.6)
[2020-08-30 15:12] LABS: CHLORIDE 107 mEq/L (98-107)
[2020-08-30 15:14] LABS: INR 1.1; PROTHROMBIN TIME 11.8 sec (9.6-11.0)
[2020-08-30 15:21] LABS: CREATINE KINASE 92 IU/L (39-308)
[2020-08-30] MEDS ORDERED: POTASSIUM CHLORIDE 20MEQ TABLET SR PO NR (15:45)
[2020-08-30] MEDS ORDERED: POTASSIUM CHLORIDE INJ 30 MEQ in DEXT 5%/0.9% NACL 1,000 ML IV NR (16:00)
[2020-08-30 16:19] LABS: CLARITY URINE CLEAR (CLEAR); COLOR URINE YELLOW (YELLOW); KETONES URINE NEGATIVE (NEGATIVE); LEUKOCYTE ESTERASE URINE NEGATIVE (NEGATIVE); NITRITE URINE NEGATIVE (NEGATIVE); OCCULT BLOOD URINE NEGATIVE (NEGATIVE); PH URINE 7.5 (4.5-8.0); PROTEIN URINE NEGATIVE (NEGATIVE); SPECIFIC GRAVITY URINE 1.011 (1.005-1.030); UROBILINOGEN URINE 0.2 E.U./dL (0.2-1.0)
[2020-08-30] MEDS ORDERED: HYDROMORPHONE HCL/PF 2MG/ML CPJ IV NR (18:45)
[2020-08-31 00:59] VITALS: BP 167/88
[2020-08-31] MEDS ORDERED: ONDANSETRON HCL 4MG/2ML INJ IV PRN (01:30)
[2020-08-31] MEDS: MORPHINE SULFATE 2 MG/ML CPJ (NOT FOR IM USE) IV PRN ×4 (01:54→20:10)
[2020-08-31] MEDS ORDERED: DEXTROSE 50% WATER 50ML SYRINGE IV PRN (02:30)
[2020-08-31] MEDS: BLOOD SUGAR DIAGNOSTIC STRIP TEST SCH ×4 (06:24→21:03)
[2020-08-31 06:37] LABS: BASOPHILS % 0.7 % (0.0-2.0); EOSINOPHILS % 2.2 % (0.0-5.0); HEMATOCRIT. 31.9 % (42.0-52.0); HEMOGLOBIN. 10.7 g/dL (14.0-18.0); LYMPHOCYTES % 17.3 % (20.0-50.0); MEAN CORPUSCULAR HEMOGLOBIN 27.7 pg (28.0-32.0); MEAN CORPUSCULAR VOLUME 82.5 fL (80.0-94.0); MEAN PLATELET VOLUME 8.9 fl (7.4-10.4); MONOCYTES % 8.5 % (2.0-8.0); NEUTROPHILS % 71.3 % (40.0-76.0); PLATELET 291 x1000/uL (130-400); RED BLOOD CELL COUNT 3.86 mill/uL (4.7-6.1); RED CELL DISTRIBUTION WIDTH 17.7 % (11.6-14.6)
[2020-08-31] MEDS: INSULIN LISPRO 100 UNITS/ML SUBCUT SCH ×4 (06:40→21:02)
[2020-08-31 06:47] LABS: CHLORIDE 107 mEq/L (98-107)
[2020-08-31] MEDS: ENOXAPARIN 40MG/0.4ML SYR SUBCUT SCH (09:09)
[2020-08-31] MEDS ORDERED: HYDROCODONE/ACETAMINOPHEN 5/325MG TABLET PO PRN (10:30)
[2020-08-31 12:00] VITALS: BP 156/80
[2020-08-31] MEDS ORDERED: POTASSIUM CHLORIDE INJ 40 MEQ in DEXT 5% WATER 250 ML IV ONE (12:00)
[2020-08-31] MEDS ORDERED: CLONAZEPAM 1MG TABLET PO PRN (12:30)
[2020-08-31] MEDS ORDERED: LIDOCAINE HCL 1% 20ML VIAL (Pyxis) INJ ONE (13:24)
[2020-08-31] MEDS: HYDROCODONE/ACETAMINOPHEN 10/325MG TABLET PO PRN ×2 (13:34→17:21)
[2020-08-31] MEDS: POTASSIUM CHLORIDE 20MEQ TABLET SR PO SCH (13:51)
[2020-08-31 16:00] VITALS: BP 153/78
[2020-08-31] MEDS ORDERED: VANCOMYCIN 1 G PREMIX 200 ML IV SCH (16:00)
[2020-08-31] MEDS: MORPHINE SULFATE 15MG TABLET SR PO SCH ×2 (16:05→22:17)
[2020-08-31] MEDS ORDERED: CEFTRIAXONE 2 G PREMIX 50 ML IV SCH (17:00)
[2020-08-31] MEDS ORDERED: PIPERACILLIN/TAZOBACTAM 3.375 G in DEXT 5% WATER 100 ML IV SCH (18:00)
[2020-08-31 18:06] VITALS: BP 156/80
[2020-08-31 18:35] LABS: BASOPHILS % 0.9 % (0.0-2.0); EOSINOPHILS % 2.4 % (0.0-5.0); HEMATOCRIT. 30.8 % (42.0-52.0); HEMOGLOBIN. 10.6 g/dL (14.0-18.0); MEAN CORPUSCULAR HEMOGLOBIN 27.9 pg (28.0-32.0); MEAN CORPUSCULAR VOLUME 80.9 fL (80.0-94.0); MEAN PLATELET VOLUME 8.7 fl (7.4-10.4); MONOCYTES % 9.4 % (2.0-8.0); NEUTROPHILS % 64.3 % (40.0-76.0); PLATELET 291 x1000/uL (130-400); RED CELL DISTRIBUTION WIDTH 17.7 % (11.6-14.6)
[2020-08-31 18:38] LABS: CHLORIDE 103 mEq/L (98-107)
[2020-08-31] MEDS: CEFTRIAXONE 2 G in DEXTROSE 5% WATER 50 ML IV SCH (18:39)
[2020-08-31] MEDS: DAPTOMYCIN 500 MG in SODIUM CHLORIDE 0.9% 50 ML IV SCH (19:55)
[2020-08-31 20:00] VITALS: BP_SYST 119; BP_SYST 133; BP_DIAS 72; BP_DIAS 84
[2020-08-31] MEDS: DOXEPIN HCL 25MG CAPSULE PO SCH (21:00)
[2020-08-31] MEDS: MIRTAZAPINE 15MG TABLET PO SCH (21:00)
[2020-08-31] MEDS: AMLODIPINE 10MG TABLET PO SCH (21:08)
[2020-09-01] VITALS: BP 137/88
[2020-09-01] MEDS: HYDROCODONE/ACETAMINOPHEN 10/325MG TABLET PO PRN ×2 (00:08→17:00)
[2020-09-01 04:00] VITALS: BP 148/87
[2020-09-01] MEDS: MORPHINE SULFATE 2 MG/ML CPJ (NOT FOR IM USE) IV PRN ×3 (04:00→20:46)
[2020-09-01] MEDS: MORPHINE SULFATE 15MG TABLET SR PO SCH ×3 (05:43→22:20)
[2020-09-01] MEDS: BLOOD SUGAR DIAGNOSTIC STRIP TEST SCH ×4 (05:48→20:46)
[2020-09-01] MEDS: INSULIN LISPRO 100 UNITS/ML SUBCUT SCH ×4 (06:38→20:48)
[2020-09-01 08:00] VITALS: BP 134/75
[2020-09-01] MEDS: ENOXAPARIN 40MG/0.4ML SYR SUBCUT SCH (09:55)
[2020-09-01] MEDS: POTASSIUM CHLORIDE 20MEQ TABLET SR PO SCH (09:55)
[2020-09-01] MEDS: AMLODIPINE 10MG TABLET PO SCH (09:55)
[2020-09-01 12:00] VITALS: BP 107/73
[2020-09-01 16:00] VITALS: BP 107/63
[2020-09-01] MEDS: SODIUM CHLORIDE 0.9% 1,000 ML IV SCH (17:19)
[2020-09-01] MEDS: CEFTRIAXONE 2 G in DEXTROSE 5% WATER 50 ML IV SCH (19:45)
[2020-09-01 20:00] VITALS: BP 118/60
[2020-09-01 20:14] LABS: CHLORIDE 105 mEq/L (98-107)
[2020-09-01] MEDS: DOXEPIN HCL 25MG CAPSULE PO SCH (20:42)
[2020-09-01] MEDS: DAPTOMYCIN 500 MG in SODIUM CHLORIDE 0.9% 50 ML IV SCH (20:42)
[2020-09-01] MEDS: MIRTAZAPINE 15MG TABLET PO SCH (20:43)
[2020-09-02] VITALS: BP 91/56
[2020-09-02] MEDS: SODIUM CHLORIDE 0.9% 1,000 ML IV SCH ×3 (01:13→22:05)
[2020-09-02] MEDS: HYDROCODONE/ACETAMINOPHEN 10/325MG TABLET PO PRN ×4 (01:14→16:36)
[2020-09-02 04:00] VITALS: BP 100/62
[2020-09-02] MEDS: MORPHINE SULFATE 15MG TABLET SR PO SCH ×3 (06:00→22:06)
[2020-09-02] MEDS: BLOOD SUGAR DIAGNOSTIC STRIP TEST SCH ×4 (06:19→21:39)
[2020-09-02] MEDS: INSULIN LISPRO 100 UNITS/ML SUBCUT SCH ×4 (06:19→22:00)
[2020-09-02 07:04] LABS: CHLORIDE 108 mEq/L (98-107)
[2020-09-02 07:20] LABS: BASOPHILS % 1.2 % (0.0-2.0); EOSINOPHILS % 5.5 % (0.0-5.0); HEMATOCRIT. 27.7 % (42.0-52.0); HEMOGLOBIN. 9.5 g/dL (14.0-18.0); MEAN CORPUSCULAR HEMOGLOBIN 27.9 pg (28.0-32.0); MEAN CORPUSCULAR VOLUME 81.7 fL (80.0-94.0); MEAN PLATELET VOLUME 8.3 fl (7.4-10.4); MONOCYTES % 8.3 % (2.0-8.0); PLATELET 205 x1000/uL (130-400); RED BLOOD CELL COUNT 3.39 mill/uL (4.7-6.1); RED CELL DISTRIBUTION WIDTH 18.2 % (11.6-14.6)
[2020-09-02 08:00] VITALS: BP 98/57
[2020-09-02] MEDS: MORPHINE SULFATE 2 MG/ML CPJ (NOT FOR IM USE) IV PRN ×2 (08:53→20:10)
[2020-09-02] MEDS: POTASSIUM CHLORIDE 20MEQ TABLET SR PO SCH (08:54)
[2020-09-02] MEDS: ENOXAPARIN 40MG/0.4ML SYR SUBCUT SCH (08:54)
[2020-09-02] MEDS: AMLODIPINE 10MG TABLET PO SCH (08:57)
[2020-09-02 12:00] VITALS: BP 145/81
[2020-09-02 16:00] VITALS: BP 145/81
[2020-09-02] MEDS: CEFTRIAXONE 2 G in DEXTROSE 5% WATER 50 ML IV SCH (18:30)
[2020-09-02 20:00] VITALS: BP 129/72
[2020-09-02] MEDS: DAPTOMYCIN 500 MG in SODIUM CHLORIDE 0.9% 50 ML IV SCH (20:09)
[2020-09-02] MEDS: DOXEPIN HCL 25MG CAPSULE PO SCH (21:58)
[2020-09-02] MEDS: MIRTAZAPINE 15MG TABLET PO SCH (21:58)
[2020-09-03] VITALS: BP 139/89
[2020-09-03] MEDS: HYDROCODONE/ACETAMINOPHEN 10/325MG TABLET PO PRN ×5 (00:12→22:29)
[2020-09-03] MEDS: MORPHINE SULFATE 2 MG/ML CPJ (NOT FOR IM USE) IV PRN ×3 (03:11→20:26)
[2020-09-03 04:00] VITALS: BP 106/72
[2020-09-03] MEDS: MORPHINE SULFATE 15MG TABLET SR PO SCH ×3 (05:20→22:00)
[2020-09-03] MEDS: BLOOD SUGAR DIAGNOSTIC STRIP TEST SCH ×4 (06:58→21:00)
[2020-09-03] MEDS: INSULIN LISPRO 100 UNITS/ML SUBCUT SCH ×4 (07:40→21:00)
[2020-09-03 08:00] VITALS: BP 131/79
[2020-09-03] MEDS: POTASSIUM CHLORIDE 20MEQ TABLET SR PO SCH (08:50)
[2020-09-03] MEDS: ENOXAPARIN 40MG/0.4ML SYR SUBCUT SCH (08:50)
[2020-09-03] MEDS: AMLODIPINE 10MG TABLET PO SCH (08:50)
[2020-09-03] MEDS: SODIUM CHLORIDE 0.9% 1,000 ML IV SCH ×2 (08:53→17:25)
[2020-09-03 12:00] VITALS: BP 136/68
[2020-09-03 16:00] VITALS: BP 157/90
[2020-09-03] MEDS: CEFTRIAXONE 2 G in DEXTROSE 5% WATER 50 ML IV SCH (17:35)
[2020-09-03 20:00] VITALS: BP 133/83
[2020-09-03] MEDS: DAPTOMYCIN 500 MG in SODIUM CHLORIDE 0.9% 50 ML IV SCH (20:25)
[2020-09-03] MEDS: DOXEPIN HCL 25MG CAPSULE PO SCH (21:23)
[2020-09-03] MEDS: MIRTAZAPINE 15MG TABLET PO SCH (21:23)
[2020-09-04] VITALS: BP 145/91
[2020-09-04] MEDS: MORPHINE SULFATE 2 MG/ML CPJ (NOT FOR IM USE) IV PRN ×4 (01:24→17:31)
[2020-09-04 04:00] VITALS: BP 125/78
[2020-09-04] MEDS: HYDROCODONE/ACETAMINOPHEN 10/325MG TABLET PO PRN ×3 (04:17→16:09)
[2020-09-04] MEDS: MORPHINE SULFATE 15MG TABLET SR PO SCH ×2 (06:00→14:18)
[2020-09-04] MEDS: BLOOD SUGAR DIAGNOSTIC STRIP TEST SCH ×3 (07:03→17:10)
[2020-09-04] MEDS: INSULIN LISPRO 100 UNITS/ML SUBCUT SCH ×3 (07:09→17:40)
[2020-09-04 08:00] VITALS: BP 132/78
[2020-09-04] MEDS: ENOXAPARIN 40MG/0.4ML SYR SUBCUT SCH (09:49)
[2020-09-04] MEDS: POTASSIUM CHLORIDE 20MEQ TABLET SR PO SCH (09:49)
[2020-09-04] MEDS: AMLODIPINE 10MG TABLET PO SCH (09:49)
[2020-09-04 12:00] VITALS: BP 148/87
[2020-09-04 16:00] VITALS: BP 143/91
[2020-09-04 17:43] VITALS: BP 143/91
== END 2020-09-04 18:48 | DRG 349 ==
LOC: ER 12:29 → 8WST 18:40 → EDBEDREQ 18:44 → EDBEDREQTM 18:44 → ENRESERV 21:18
PROVIDERS: ADMIT Internal Medicine; ATTEND Internal Medicine
PROC: 02HV33Z Insertion of Infusion Device into Superior Vena Cava, Percutaneous Approach (ICD-10-PCS; principal; 2020-08-31)
PROC: B518ZZA Fluoroscopy of Superior Vena Cava, Guidance (ICD-10-PCS; 2020-08-31)
PROC: B548ZZA Ultrasonography of Superior Vena Cava, Guidance (ICD-10-PCS; 2020-08-31)
DX: T87.44 Infection of amputation stump, left lower extremity (principal); E11.51 Type 2 diabetes mellitus with diabetic peripheral angiopathy without gangrene; E11.69 Type 2 diabetes mellitus with other specified complication; T87.54 Necrosis of amputation stump, left lower extremity; I11.0 Hypertensive heart disease with heart failure; I50.9 Heart failure, unspecified; D64.9 Anemia, unspecified; E78.5 Hyperlipidemia, unspecified; I16.0 Hypertensive urgency; E87.6 Hypokalemia; E86.0 Dehydration; E11.40 Type 2 diabetes mellitus with diabetic neuropathy, unspecified; Z96.659 Presence of unspecified artificial knee joint; M86.8X7 Other osteomyelitis, ankle and foot; G90.8 Other disorders of autonomic nervous system; X58.XXXA Exposure to other specified factors, initial encounter; G89.4 Chronic pain syndrome; Z20.822 Contact with and (suspected) exposure to COVID-19; Y83.8 Other surgical procedures as the cause of abnormal reaction of the patient, or of later complication, without mention of misadventure at the time of the procedure; Z91.19 Patient's noncompliance with other medical treatment and regimen; Z79.899 Other long term (current) drug therapy; Z87.891 Personal history of nicotine dependence; Y93.89 Activity, other specified; Y92.89 Other specified places as the place of occurrence of the external cause; Y99.8 Other external cause status; R19.7 Diarrhea, unspecified
CPT/HCPCS: 36415; 36573; 71045; 73630; 73718; 80048; 80053; 81003; 82550; 82962; 83036; 83605; 83735; 84132; 84145; 84484; 85025; 85651; 86140; 87426; 93005; 93306; 97116; 97162; 97166; 97530; 99285; C1725; C1769; J0696; J0878; J1170; J1650; J1815; J2270; J2543; J3370; J3480; J3490; J7030; J7040; J7042; J7060

== ENCOUNTER 2021-04-09 05:11 | Emergency (ER) | payer MEDICARE, MEDICAID ==
[~2021-04-09] VITALS: Ht 175.3 cm; Wt 78.0 kg
[~2021-04-09 05:11] MED LIST changes: +MIRT-90 PO; -MIRT-91 PO
[2021-04-09] MEDS ORDERED: HYDROCODONE/ACETAMINOPHEN 5/325MG TABLET PO ONE (05:45)
[2021-04-09] MEDS ORDERED: KETOROLAC 60MG/2ML VIAL IM ONE (05:45)
[2021-04-09 05:47] VITALS: BP 133/89
[2021-04-09] MEDS ORDERED: CYCL10TA7 MT (06:20)
[2021-04-09] MEDS ORDERED: IBUP-2028 MT (06:20)
== END 2021-04-09 06:32 | disposition home or self-care (01) ==
LOC: ER 05:11
DX: M25.551 Pain in right hip (principal); M54.59 Other low back pain; R26.2 Difficulty in walking, not elsewhere classified; G89.11 Acute pain due to trauma; Z91.81 History of falling; I11.0 Hypertensive heart disease with heart failure; I50.9 Heart failure, unspecified; E11.9 Type 2 diabetes mellitus without complications; Z79.899 Other long term (current) drug therapy
CPT/HCPCS: 72170; 73502; 96372; 99284; J1885

== ENCOUNTER 2021-04-18 15:13 | Inpatient (IN) | payer MEDICARE, MEDICAID ==
[~2021-04-18] VITALS: Ht 180.3 cm; Wt 78.9 kg
[~2021-04-18 15:13] MED LIST changes: +CYCL10TA7 MT; +IBUP-2028 MT
[2021-04-18] MEDS ORDERED: SODIUM CHLORIDE 0.9% 1000ML BAG (SEPSIS BOLUS) IV ONE (20:00)
[2021-04-18 20:48] LABS: BASOPHILS % 0.3 % (0.0-2.0); EOSINOPHILS % 1.2 % (0.0-5.0); HEMATOCRIT. 41.7 % (42.0-52.0); HEMOGLOBIN. 14.1 g/dL (14.0-18.0); LYMPHOCYTES % 14.8 % (20.0-50.0); MEAN CORPUSCULAR HEMOGLOBIN 27.2 pg (28.0-32.0); MEAN CORPUSCULAR VOLUME 80.3 fL (80.0-94.0); MEAN PLATELET VOLUME 10.1 fl (7.4-10.4); MONOCYTES % 8.7 % (2.0-8.0); PLATELET 222 x1000/uL (130-400); RED CELL DISTRIBUTION WIDTH 16.3 % (11.6-14.6)
[2021-04-18 20:55] LABS: CHLORIDE 100 mEq/L (98-107)
[2021-04-18] MEDS ORDERED: HYDROCODONE/ACETAMINOPHEN 5/325MG TABLET PO ONE (22:15)
[2021-04-18] MEDS ORDERED: POTASSIUM CHLORIDE 20MEQ/PACKET PO ONE (23:15)
[2021-04-19 00:05] VITALS: BP 161/98
[2021-04-19 04:00] VITALS: BP 123/87
[2021-04-19] MEDS ORDERED: ONDANSETRON HCL 4MG/2ML INJ IV PRN (05:15)
[2021-04-19] MEDS ORDERED: MAGNESIUM/ALUMINUM HYDROXIDE/SIMETHICONE 30ML UDC PO PRN (05:15)
[2021-04-19] MEDS ORDERED: DOCUSATE SODIUM 100MG CAPSULE PO PRN (05:15)
[2021-04-19] MEDS ORDERED: ACETAMINOPHEN 325MG TABLET PO PRN (05:15)
[2021-04-19] MEDS ORDERED: VANCOMYCIN 1 G PREMIX 200 ML IV SCH (05:15)
[2021-04-19] MEDS ORDERED: CLONIDINE 0.1MG TABLET PO PRN (05:15)
[2021-04-19] MEDS ORDERED: HYDROCODONE/ACETAMINOPHEN 5/325MG TABLET PO PRN (05:15)
[2021-04-19] MEDS: SODIUM CHLORIDE 0.45% 1,000 ML IV SCH ×2 (06:06→18:35)
[2021-04-19] MEDS ORDERED: DEXTROSE 50% WATER 50ML SYRINGE IV PRN (06:15)
[2021-04-19] MEDS: BLOOD SUGAR DIAGNOSTIC STRIP TEST SCH ×4 (06:27→21:00)
[2021-04-19] MEDS ORDERED: KCL 10MEQ/50ML PREMIX 50 ML IV SCH (07:00)
[2021-04-19] MEDS ORDERED: VANCOMYCIN 1500MG in DEXTROSE 5% WATER 250ML IV SCH ×2 (07:00→08:00)
[2021-04-19] MEDS: INSULIN LISPRO 100 UNITS/ML SUBCUT SCH ×4 (07:50→23:04)
[2021-04-19 08:00] VITALS: BP 114/71
[2021-04-19] MEDS: PIPERACILLIN/TAZOBACTAM 3.375 G in DEXTROSE 5% WATER 50 ML IV SCH ×3 (08:05→23:03)
[2021-04-19 12:00] VITALS: BP_SYST 123; BP_SYST 150; BP_DIAS 57; BP_DIAS 92
[2021-04-19] MEDS ORDERED: NALOXONE HCL 0.4MG/ML VIAL IV PRN (12:00)
[2021-04-19] MEDS: AMLODIPINE 10MG TABLET PO SCH (12:35)
[2021-04-19] MEDS: ENOXAPARIN 40MG/0.4ML SYR SUBCUT SCH (12:36)
[2021-04-19] MEDS: HYDROCODONE/ACETAMINOPHEN 10/325MG TABLET PO PRN ×2 (12:36→21:45)
[2021-04-19] MEDS: INSULIN GLARGINE UD 100 UNITS/ML SYR SUBCUT SCH (14:38)
[2021-04-19 16:00] VITALS: BP 107/67
[2021-04-19] MEDS: HYDROMORPHONE HCL/PF 2MG/ML CPJ IV PRN (17:44)
[2021-04-19 20:00] VITALS: BP 99/62
[2021-04-19] MEDS: DOXEPIN HCL 25MG CAPSULE PO SCH (21:44)
[2021-04-19] MEDS: MIRTAZAPINE 15MG TABLET PO SCH (21:45)
[2021-04-19] MEDS: POTASSIUM CHLORIDE 20MEQ TABLET SR PO SCH (23:05)
[2021-04-19] MEDS: CLONAZEPAM 1MG TABLET PO SCH (23:05)
[2021-04-20] VITALS: BP 153/98
[2021-04-20] MEDS: VANCOMYCIN 1 G PREMIX 200 ML IV SCH ×2 (02:36→17:39)
[2021-04-20] MEDS: HYDROCODONE/ACETAMINOPHEN 10/325MG TABLET PO PRN ×2 (05:38→16:05)
[2021-04-20] MEDS: PIPERACILLIN/TAZOBACTAM 3.375 G in DEXTROSE 5% WATER 50 ML IV SCH ×3 (05:39→20:38)
[2021-04-20 06:09] LABS: BASOPHILS % 0.7 % (0.0-2.0); EOSINOPHILS % 2.3 % (0.0-5.0); HEMOGLOBIN. 12.1 g/dL (14.0-18.0); LYMPHOCYTES % 20.5 % (20.0-50.0); MEAN CORPUSCULAR HEMOGLOBIN 27.1 pg (28.0-32.0); MEAN CORPUSCULAR VOLUME 80.8 fL (80.0-94.0); MEAN PLATELET VOLUME 10.3 fl (7.4-10.4); NEUTROPHILS % 66.5 % (40.0-76.0); PLATELET 175 x1000/uL (130-400); RED BLOOD CELL COUNT 4.45 mill/uL (4.7-6.1)
[2021-04-20 06:22] LABS: CHLORIDE 108 mEq/L (98-107)
[2021-04-20] MEDS: BLOOD SUGAR DIAGNOSTIC STRIP TEST SCH ×4 (07:20→20:24)
[2021-04-20 08:00] VITALS: BP 115/74
[2021-04-20] MEDS: CLONAZEPAM 1MG TABLET PO SCH ×2 (09:12→20:22)
[2021-04-20] MEDS: POTASSIUM CHLORIDE 20MEQ TABLET SR PO SCH (09:12)
[2021-04-20] MEDS: AMLODIPINE 10MG TABLET PO SCH (09:13)
[2021-04-20] MEDS: SODIUM CHLORIDE 0.45% 1,000 ML IV SCH ×2 (09:13→20:23)
[2021-04-20] MEDS: ENOXAPARIN 40MG/0.4ML SYR SUBCUT SCH (09:14)
[2021-04-20] MEDS: HYDROMORPHONE HCL/PF 2MG/ML CPJ IV PRN ×2 (09:15→22:28)
[2021-04-20] MEDS: INSULIN LISPRO 100 UNITS/ML SUBCUT SCH ×4 (09:28→20:24)
[2021-04-20] MEDS: INSULIN GLARGINE UD 100 UNITS/ML SYR SUBCUT SCH (09:28)
[2021-04-20 12:00] VITALS: BP 108/66
[2021-04-20 16:00] VITALS: BP 117/71
[2021-04-20 19:15] LABS: FOLIC ACID (FOLATE) SERUM 7.4 ng/mL (>5.38)
[2021-04-20 20:00] VITALS: BP 111/68
[2021-04-20 20:14] LABS: CHLORIDE 110 mEq/L (98-107)
[2021-04-20] MEDS: DOXEPIN HCL 25MG CAPSULE PO SCH (20:22)
[2021-04-20] MEDS: MIRTAZAPINE 15MG TABLET PO SCH (20:22)
[2021-04-20] MEDS ORDERED: POTASSIUM CHLORIDE 20MEQ TABLET SR PO NR (22:15)
[2021-04-21] VITALS (7 sets, daily range): BP systolic 113–136; BP diastolic 68–86
[2021-04-21] MEDS: HYDROCODONE/ACETAMINOPHEN 10/325MG TABLET PO PRN ×2 (01:08→09:07)
[2021-04-21] MEDS: HYDROMORPHONE HCL/PF 2MG/ML CPJ IV PRN (05:32)
[2021-04-21] MEDS: PIPERACILLIN/TAZOBACTAM 3.375 G in DEXTROSE 5% WATER 50 ML IV SCH ×3 (05:32→21:10)
[2021-04-21] MEDS: BLOOD SUGAR DIAGNOSTIC STRIP TEST SCH ×4 (05:36→21:09)
[2021-04-21] MEDS: INSULIN LISPRO 100 UNITS/ML SUBCUT SCH ×4 (05:41→21:08)
[2021-04-21] MEDS: CLONAZEPAM 1MG TABLET PO SCH ×2 (08:22→21:09)
[2021-04-21] MEDS: AMLODIPINE 10MG TABLET PO SCH (08:23)
[2021-04-21] MEDS: POTASSIUM CHLORIDE 20MEQ TABLET SR PO SCH (08:23)
[2021-04-21] MEDS: ENOXAPARIN 40MG/0.4ML SYR SUBCUT SCH (08:24)
[2021-04-21] MEDS: INSULIN GLARGINE UD 100 UNITS/ML SYR SUBCUT SCH (10:00)
[2021-04-21] MEDS: VANCOMYCIN 1 G PREMIX 200 ML IV SCH (11:53)
[2021-04-21] MEDS ORDERED: HYDROCODONE/ACETAMINOPHEN 10/325MG TABLET PO PRN (12:30)
[2021-04-21] MEDS: GABAPENTIN 300MG CAPSULE PO SCH ×2 (14:02→22:05)
[2021-04-21] MEDS ORDERED: ATORVASTATIN CALCIUM 40MG TABLET PO SCH (21:00)
[2021-04-21] MEDS: MIRTAZAPINE 15MG TABLET PO SCH (21:09)
[2021-04-21] MEDS: DOXEPIN HCL 25MG CAPSULE PO SCH (21:10)
== END 2021-04-21 22:56 | DRG 300 ==
LOC: ER 15:13 → 6EST 21:35 → EDBEDREQ 21:41 → EDBEDREQTM 21:41 → EDBEDREQSVC 21:41 → ENRESERV 22:24 → 6EST 04-19 16:50
PROVIDERS: ADMIT Hospitalist; ATTEND Hospitalist
DX: E11.51 Type 2 diabetes mellitus with diabetic peripheral angiopathy without gangrene (principal); N17.9 Acute kidney failure, unspecified; E11.621 Type 2 diabetes mellitus with foot ulcer; E11.65 Type 2 diabetes mellitus with hyperglycemia; E87.6 Hypokalemia; F31.9 Bipolar disorder, unspecified; E78.5 Hyperlipidemia, unspecified; F03.90 Unspecified dementia, unspecified severity, without behavioral disturbance, psychotic disturbance, mood disturbance, and anxiety; E78.00 Pure hypercholesterolemia, unspecified; L08.9 Local infection of the skin and subcutaneous tissue, unspecified; R26.9 Unspecified abnormalities of gait and mobility; I25.10 Atherosclerotic heart disease of native coronary artery without angina pectoris; M19.09 Primary osteoarthritis, other specified site; G89.4 Chronic pain syndrome; E11.42 Type 2 diabetes mellitus with diabetic polyneuropathy; L97.529 Non-pressure chronic ulcer of other part of left foot with unspecified severity; I11.0 Hypertensive heart disease with heart failure; Z20.822 Contact with and (suspected) exposure to COVID-19; I50.9 Heart failure, unspecified; Z91.19 Patient's noncompliance with other medical treatment and regimen; Z79.1 Long term (current) use of non-steroidal anti-inflammatories (NSAID); Z79.899 Other long term (current) drug therapy; Z82.49 Family history of ischemic heart disease and other diseases of the circulatory system; Z72.0 Tobacco use; Z79.4 Long term (current) use of insulin; Z89.432 Acquired absence of left foot; Z91.81 History of falling
CPT/HCPCS: 36415; 71045; 73620; 80048; 80053; 80202; 82607; 82746; 82962; 83036; 83605; 84145; 84484; 85025; 85651; 87426; 93005; 93970; 97116; 97162; 97166; 99285; J1170; J1650; J1815; J2543; J3370; J3480; J7030; J7060

== ENCOUNTER 2021-04-29 22:23 | Emergency (ER) | payer MEDICARE, MEDICAID ==
[~2021-04-29] VITALS: Ht 180.3 cm; Wt 82.0 kg
[2021-04-29] MEDS ORDERED: SODIUM CHLORIDE 0.9% 1000ML BAG (SEPSIS BOLUS) IV ONE (23:15)
[2021-04-29 23:52] LABS: HEMATOCRIT 36.2 % (42.0-52.0); HEMOGLOBIN 12.3 g/dL (14.0-18.0); MEAN CORPUSCULAR HEMOGLOBIN 27.5 pg (28.0-32.0); MEAN CORPUSCULAR VOLUME 80.9 fL (80.0-94.0); PLATELET 219 x1000/uL (130-400); RED BLOOD CELL COUNT 4.47 mill/uL (4.7-6.1); RED CELL DISTRIBUTION WIDTH 15.3 % (11.6-14.6)
[2021-04-30 00:05] LABS: CHLORIDE 106 mEq/L (98-107)
[2021-04-30 00:15] LABS: BETA HYDROXYBUTYRATE 0.1 mMol/L (0.0-0.3)
[2021-04-30 02:35] VITALS: BP 141/81
== END 2021-04-30 02:53 | disposition home or self-care (01) ==
LOC: ER 22:23
DX: E11.65 Type 2 diabetes mellitus with hyperglycemia (principal); Z79.4 Long term (current) use of insulin; Z91.14 Patient's other noncompliance with medication regimen; I10 Essential (primary) hypertension; F25.0 Schizoaffective disorder, bipolar type
CPT/HCPCS: 36415; 80053; 82010; 82962; 85027; 93005; 96360; 99284; J7030

== ENCOUNTER 2021-06-11 13:37 | Inpatient (IN) | payer OTHER, MEDICAID ==
[~2021-06-11] VITALS: Ht 180.3 cm; Wt 68.0 kg
[2021-06-11] MEDS ORDERED: ACETAMINOPHEN 325MG TABLET PO STA (13:50)
[2021-06-11 15:11] LABS: BASOPHILS % 0.7 % (0.0-2.0); EOSINOPHILS % 0.8 % (0.0-5.0); HEMATOCRIT. 42.3 % (42.0-52.0); HEMOGLOBIN. 14.1 g/dL (14.0-18.0); LYMPHOCYTES % 20.6 % (20.0-50.0); MEAN CORPUSCULAR HEMOGLOBIN 26.9 pg (28.0-32.0); MEAN PLATELET VOLUME 10.6 fl (7.4-10.4); MONOCYTES % 6.6 % (2.0-8.0); NEUTROPHILS % 71.3 % (40.0-76.0); PLATELET 184 x1000/uL (130-400); RED BLOOD CELL COUNT 5.22 mill/uL (4.7-6.1); RED CELL DISTRIBUTION WIDTH 15.7 % (11.6-14.6)
[2021-06-11 15:19] LABS: CHLORIDE 103 mEq/L (98-107)
[2021-06-11] MEDS ORDERED: POTASSIUM CHLORIDE 20MEQ TABLET SR PO ONE (17:00)
[2021-06-11] MEDS ORDERED: POTASSIUM CHLORIDE INJ 40 MEQ in DEXT 5% WATER 500 ML IV ONE (17:00)
[2021-06-11] MEDS ORDERED: KCL 20MEQ/100ML PREMIX 100 ML IV SCH (17:15)
[2021-06-12] MEDS ORDERED: POTASSIUM CHLORIDE 20MEQ TABLET SR PO ONE
[2021-06-12] MEDS ORDERED: ACETAMINOPHEN 325MG TABLET PO ONE
[2021-06-12] MEDS ORDERED: INSULIN LISPRO 100 UNITS/ML SUBCUT NR (06:30)
[2021-06-12] MEDS ORDERED: NALOXONE HCL 0.4MG/ML VIAL IV PRN (07:30)
[2021-06-12] MEDS: HYDROCODONE/ACETAMINOPHEN 5/325MG TABLET PO PRN ×4 (07:31→18:24)
[2021-06-12] MEDS ORDERED: DEXTROSE 50% WATER 50ML SYRINGE IV PRN (09:15)
[2021-06-12] MEDS ORDERED: INSULIN GLARGINE UD 100 UNITS/ML SYR SUBCUT SCH (10:00)
[2021-06-12 11:00] VITALS: BP 118/73
[2021-06-12] MEDS ORDERED: CLONAZEPAM 1MG TABLET PO SCH (11:30)
[2021-06-12] MEDS: BLOOD SUGAR DIAGNOSTIC STRIP TEST SCH ×3 (12:20→21:00)
[2021-06-12] MEDS: INSULIN LISPRO 100 UNITS/ML SUBCUT SCH ×3 (13:41→21:00)
[2021-06-12] MEDS ORDERED: POTASSIUM CHLORIDE 20MEQ TABLET SR PO NR (15:15)
[2021-06-12 16:00] VITALS: BP 84/57
[2021-06-12 20:00] VITALS: BP 95/71
[2021-06-12] MEDS ORDERED: PNEUMOCOCCAL 23-VAL P-SAC VAC 0.5 ML IM ONE (20:22)
[2021-06-12] MEDS ORDERED: INFLUENZA VACCINE 05/PF 0.5 ML SYRINGE IM ONE (20:22)
[2021-06-12] MEDS: CLONAZEPAM 1MG TABLET PO SCH (21:38)
[2021-06-12] MEDS: INSULIN GLARGINE UD 100 UNITS/ML SYR SUBCUT SCH (22:00)
[2021-06-12] MEDS ORDERED: KCL 20MEQ/100ML PREMIX 100 ML IV SCH (23:45)
[2021-06-13] MEDS: HYDROCODONE/ACETAMINOPHEN 5/325MG TABLET PO PRN ×4 (00:45→20:20)
[2021-06-13] MEDS: INSULIN LISPRO 100 UNITS/ML SUBCUT SCH ×6 (06:02→20:33)
[2021-06-13] MEDS: BLOOD SUGAR DIAGNOSTIC STRIP TEST SCH ×4 (07:33→20:25)
[2021-06-13 07:45] LABS: CHLORIDE 109 mEq/L (98-107)
[2021-06-13 08:00] VITALS: BP 97/63
[2021-06-13] MEDS: CLONAZEPAM 1MG TABLET PO SCH ×2 (09:55→20:19)
[2021-06-13] MEDS: INSULIN GLARGINE UD 100 UNITS/ML SYR SUBCUT SCH ×2 (11:35→22:05)
[2021-06-13 11:51] VITALS: BP 127/78
[2021-06-13] MEDS: GABAPENTIN 300MG CAPSULE PO SCH ×2 (13:59→20:19)
[2021-06-13 16:00] VITALS: BP 105/68
[2021-06-13 20:00] VITALS: BP 116/69
[2021-06-13 22:20] LABS: CLARITY URINE CLEAR (CLEAR); COLOR URINE YELLOW (YELLOW); KETONES URINE NEGATIVE (NEGATIVE); LEUKOCYTE ESTERASE URINE NEGATIVE (NEGATIVE); NITRITE URINE NEGATIVE (NEGATIVE); OCCULT BLOOD URINE NEGATIVE (NEGATIVE); PH URINE 6.5 (4.5-8.0); PROTEIN URINE NEGATIVE (NEGATIVE); SPECIFIC GRAVITY URINE 1.012 (1.005-1.030); UROBILINOGEN URINE 0.2 E.U./dL (0.2-1.0)
[2021-06-13 22:32] LABS: *AMPHETAMINES SCREEN URINE NEGATIVE (NEGATIVE); *BARBITURATES SCREEN URINE NEGATIVE (NEGATIVE); *COCAINE SCREEN URINE NEGATIVE (NEGATIVE); CANNABINOID URINE SCREEN NEGATIVE (NEGATIVE); METHADONE URINE SCREEN NEGATIVE (NEGATIVE); OPIATES URINE SCREEN PRESUMTIVE POSITIVE (NEGATIVE)
[2021-06-13 22:33] LABS: PHENCYCLIDINE URINE SCREEN NEGATIVE (NEGATIVE)
[2021-06-13 22:34] LABS: *BENZODIAZEPINES SCREEN URINE NEGATIVE (NEGATIVE)
[2021-06-14] VITALS: BP 111/67
[2021-06-14] MEDS: LORAZEPAM 2MG/ML CPJ IV PRN ×3 (01:09→23:37)
[2021-06-14] MEDS ORDERED: NALOXONE HCL 0.4 MG/ML 1ML VIAL IV PRN (01:30)
[2021-06-14] MEDS: BLOOD SUGAR DIAGNOSTIC STRIP TEST SCH ×4 (06:42→21:00)
[2021-06-14] MEDS: GABAPENTIN 300MG CAPSULE PO SCH ×3 (06:45→22:21)
[2021-06-14] MEDS: INSULIN LISPRO 100 UNITS/ML SUBCUT SCH ×6 (06:46→22:25)
[2021-06-14 08:00] VITALS: BP 129/78
[2021-06-14] MEDS: CLONAZEPAM 1MG TABLET PO SCH ×2 (08:52→22:24)
[2021-06-14] MEDS: HYDROCODONE/ACETAMINOPHEN 5/325MG TABLET PO PRN ×2 (09:36→18:23)
[2021-06-14 10:20] LABS: CHLORIDE 115 mEq/L (98-107)
[2021-06-14 12:00] VITALS: BP 112/74
[2021-06-14] MEDS: INSULIN GLARGINE UD 100 UNITS/ML SYR SUBCUT SCH ×2 (12:03→22:25)
[2021-06-14 16:00] VITALS: BP 125/78
[2021-06-14] MEDS ORDERED: POTASSIUM CHLORIDE 20MEQ TABLET SR PO NR (17:30)
[2021-06-14 20:00] VITALS: BP 117/76
[2021-06-15] VITALS: BP 115/67
[2021-06-15] MEDS: HYDROCODONE/ACETAMINOPHEN 5/325MG TABLET PO PRN ×4 (00:34→21:18)
[2021-06-15 04:00] VITALS: BP 137/81
[2021-06-15] MEDS: GABAPENTIN 300MG CAPSULE PO SCH ×3 (05:43→21:21)
[2021-06-15 08:00] VITALS: BP 123/70
[2021-06-15] MEDS: BLOOD SUGAR DIAGNOSTIC STRIP TEST SCH ×4 (08:04→21:33)
[2021-06-15] MEDS: INSULIN LISPRO 100 UNITS/ML SUBCUT SCH ×4 (08:23→21:31)
[2021-06-15] MEDS: CLONAZEPAM 1MG TABLET PO SCH ×2 (08:27→21:21)
[2021-06-15] MEDS: LORAZEPAM 2MG/ML CPJ IV PRN (08:28)
[2021-06-15] MEDS: INSULIN GLARGINE UD 100 UNITS/ML SYR SUBCUT SCH ×2 (11:20→21:33)
[2021-06-15 12:00] VITALS: BP 133/85
[2021-06-15 16:00] VITALS: BP 140/87
[2021-06-15 20:00] VITALS: BP 151/85
[2021-06-15] MEDS ORDERED: GUAIFENESIN 200MG/10ML SUGAR FREE UDC PO PRN (23:15)
[2021-06-16] VITALS: BP 128/78
[2021-06-16] MEDS: LORAZEPAM 2MG/ML CPJ IV PRN (00:27)
[2021-06-16] MEDS: HYDROCODONE/ACETAMINOPHEN 5/325MG TABLET PO PRN ×3 (03:28→20:47)
[2021-06-16 04:00] VITALS: BP 152/56
[2021-06-16] MEDS: GABAPENTIN 300MG CAPSULE PO SCH ×3 (06:25→21:09)
[2021-06-16] MEDS: INSULIN LISPRO 100 UNITS/ML SUBCUT SCH ×4 (06:33→21:10)
[2021-06-16 07:05] LABS: CHLORIDE 108 mEq/L (98-107)
[2021-06-16] MEDS: BLOOD SUGAR DIAGNOSTIC STRIP TEST SCH ×4 (07:52→21:08)
[2021-06-16 08:00] VITALS: BP_SYST 100; BP_SYST 153; BP_DIAS 70; BP_DIAS 89
[2021-06-16] MEDS: CLONAZEPAM 1MG TABLET PO SCH ×2 (09:21→20:46)
[2021-06-16] MEDS: INSULIN GLARGINE UD 100 UNITS/ML SYR SUBCUT SCH ×2 (11:10→21:10)
[2021-06-16 12:00] VITALS: BP 119/83
[2021-06-16] MEDS: TRAMADOL 50MG TABLET PO PRN ×2 (15:53→23:19)
[2021-06-16 16:00] VITALS: BP 144/79
[2021-06-16 20:00] VITALS: BP 131/81
[2021-06-17] VITALS: BP 118/70
[2021-06-17] MEDS: LORAZEPAM 2MG/ML CPJ IV PRN ×3 (00:37→18:14)
[2021-06-17] MEDS: HYDROCODONE/ACETAMINOPHEN 5/325MG TABLET PO PRN (02:56)
[2021-06-17 04:00] VITALS: BP 122/86
[2021-06-17] MEDS: GABAPENTIN 300MG CAPSULE PO SCH ×3 (05:26→21:51)
[2021-06-17] MEDS: BLOOD SUGAR DIAGNOSTIC STRIP TEST SCH ×4 (06:45→20:31)
[2021-06-17] MEDS: INSULIN LISPRO 100 UNITS/ML SUBCUT SCH ×4 (07:50→21:55)
[2021-06-17 08:00] VITALS: BP 122/78
[2021-06-17] MEDS: CLONAZEPAM 1MG TABLET PO SCH ×2 (08:51→17:16)
[2021-06-17] MEDS: TRAMADOL 50MG TABLET PO PRN ×2 (10:44→17:16)
[2021-06-17] MEDS: INSULIN GLARGINE UD 100 UNITS/ML SYR SUBCUT SCH ×2 (10:50→21:55)
[2021-06-17 12:00] VITALS: BP 120/76
[2021-06-17 16:00] VITALS: BP 129/82
[2021-06-17 20:00] VITALS: BP 126/79
[2021-06-17] MEDS: HYDROCODONE/ACETAMINOPHEN 10/325MG TABLET PO PRN (20:31)
[2021-06-18] VITALS: BP 123/78
[2021-06-18] MEDS: HYDROCODONE/ACETAMINOPHEN 10/325MG TABLET PO PRN ×5 (00:57→21:17)
[2021-06-18] MEDS: LORAZEPAM 2MG/ML CPJ IV PRN ×2 (02:06→08:09)
[2021-06-18 04:00] VITALS: BP 164/89
[2021-06-18] MEDS ORDERED: CLONIDINE 0.1MG TABLET PO PRN (06:00)
[2021-06-18] MEDS: GABAPENTIN 300MG CAPSULE PO SCH ×3 (06:10→21:16)
[2021-06-18] MEDS: BLOOD SUGAR DIAGNOSTIC STRIP TEST SCH ×4 (06:36→21:16)
[2021-06-18] MEDS: INSULIN LISPRO 100 UNITS/ML SUBCUT SCH ×4 (06:38→21:00)
[2021-06-18 08:00] VITALS: BP 101/64
[2021-06-18] MEDS: CLONAZEPAM 1MG TABLET PO SCH ×2 (08:09→17:00)
[2021-06-18] MEDS: INSULIN GLARGINE UD 100 UNITS/ML SYR SUBCUT SCH ×2 (10:27→21:22)
[2021-06-18] MEDS: MORPHINE SULFATE 2 MG/ML CPJ (NOT FOR IM USE) IV PRN ×2 (13:17→19:23)
[2021-06-18 16:00] VITALS: BP 96/60
[2021-06-18 20:00] VITALS: BP 149/85
[2021-06-19] VITALS: BP 112/73
[2021-06-19] MEDS: MORPHINE SULFATE 2 MG/ML CPJ (NOT FOR IM USE) IV PRN ×4 (01:14→20:34)
[2021-06-19] MEDS: HYDROCODONE/ACETAMINOPHEN 10/325MG TABLET PO PRN ×5 (03:29→22:58)
[2021-06-19 04:00] VITALS: BP 160/88
[2021-06-19] MEDS: INSULIN LISPRO 100 UNITS/ML SUBCUT SCH ×4 (06:20→20:34)
[2021-06-19] MEDS: BLOOD SUGAR DIAGNOSTIC STRIP TEST SCH ×4 (06:20→20:34)
[2021-06-19] MEDS: GABAPENTIN 300MG CAPSULE PO SCH ×3 (06:46→21:24)
[2021-06-19 08:00] VITALS: BP 125/82
[2021-06-19] MEDS: CLONAZEPAM 1MG TABLET PO SCH ×2 (08:45→17:13)
[2021-06-19] MEDS: INSULIN GLARGINE UD 100 UNITS/ML SYR SUBCUT SCH ×2 (10:11→21:30)
[2021-06-19 12:00] VITALS: BP 127/79
[2021-06-19 16:00] VITALS: BP 127/82
[2021-06-19] MEDS ORDERED: LORAZEPAM 2MG/ML CPJ IV PRN (19:30)
[2021-06-19 20:00] VITALS: BP 112/71
[2021-06-20] MEDS: MORPHINE SULFATE 2 MG/ML CPJ (NOT FOR IM USE) IV PRN ×2 (02:36→10:27)
[2021-06-20] MEDS: HYDROCODONE/ACETAMINOPHEN 10/325MG TABLET PO PRN ×3 (04:20→13:53)
[2021-06-20] MEDS: GABAPENTIN 300MG CAPSULE PO SCH ×2 (05:37→13:52)
[2021-06-20] MEDS: BLOOD SUGAR DIAGNOSTIC STRIP TEST SCH ×2 (06:44→12:20)
[2021-06-20 08:00] VITALS: BP 146/86
[2021-06-20] MEDS: INSULIN LISPRO 100 UNITS/ML SUBCUT SCH ×2 (08:49→12:50)
[2021-06-20] MEDS: CLONAZEPAM 1MG TABLET PO SCH (08:50)
[2021-06-20] MEDS: INSULIN GLARGINE UD 100 UNITS/ML SYR SUBCUT SCH (10:28)
[2021-06-20 12:00] VITALS: BP 137/90
[2021-06-20 15:52] VITALS: BP 137/90
== END 2021-06-20 17:18 | disposition home or self-care (01) | DRG 638 ==
LOC: ER 13:37 → 6EST 19:02
PROVIDERS: ADMIT Internal Medicine; ATTEND Internal Medicine
DX: E11.65 Type 2 diabetes mellitus with hyperglycemia (principal); E87.1 Hypo-osmolality and hyponatremia; E87.6 Hypokalemia; E78.00 Pure hypercholesterolemia, unspecified; F03.90 Unspecified dementia, unspecified severity, without behavioral disturbance, psychotic disturbance, mood disturbance, and anxiety; F31.9 Bipolar disorder, unspecified; I50.9 Heart failure, unspecified; E78.5 Hyperlipidemia, unspecified; I25.10 Atherosclerotic heart disease of native coronary artery without angina pectoris; Z20.822 Contact with and (suspected) exposure to COVID-19; I11.0 Hypertensive heart disease with heart failure; L97.529 Non-pressure chronic ulcer of other part of left foot with unspecified severity; Z59.02 Unsheltered homelessness; Z76.5 Malingerer [conscious simulation]; Z79.4 Long term (current) use of insulin; Z87.891 Personal history of nicotine dependence; Z91.81 History of falling
CPT/HCPCS: 36415; 72141; 72148; 73502; 80048; 80053; 80305; 81003; 82962; 83735; 84132; 85025; 87426; 93005; 97161; 99285; J1815; J2060; J2270; J3480; J7060

== ENCOUNTER 2021-12-31 01:48 | Inpatient (IN) | payer BC, MEDICAID ==
[~2021-12-31] VITALS: Ht 175.3 cm; Wt 74.0 kg
[~2021-12-31 01:48] MED LIST changes: +CYCL10TA21 MT; -CYCL10TA7 MT; -LURA40TA PO; +LURA40TA2 PO
[2021-12-31] MEDS ORDERED: ONDANSETRON HCL 4MG/2ML INJ IV STA (02:26)
[2021-12-31] MEDS ORDERED: MORPHINE SULFATE 4 MG/ML CPJ (NOT FOR IM USE) IV STA (02:26)
[2021-12-31] MEDS ORDERED: PIPERACILLIN/TAZ 3.375G PREMIX 50 ML IV ONE (02:30)
[2021-12-31] MEDS ORDERED: VANCOMYCIN 1G PREMIX 200 ML IV ONE (02:30)
[2021-12-31 03:14] LABS: BASOPHILS % 0.5 % (0.0-2.0); EOSINOPHILS % 2.3 % (0.0-5.0); HEMOGLOBIN. 13.3 g/dL (14.0-18.0); LYMPHOCYTES % 15.8 % (20.0-50.0); MEAN CORPUSCULAR HEMOGLOBIN 26.7 pg (28.0-32.0); MEAN CORPUSCULAR VOLUME 80.5 fL (80.0-94.0); MONOCYTES % 9.1 % (2.0-8.0); NEUTROPHILS % 72.3 % (40.0-76.0); PLATELET 160 x1000/uL (130-400); RED BLOOD CELL COUNT 4.96 mill/uL (4.7-6.1); RED CELL DISTRIBUTION WIDTH 17.6 % (11.6-14.6)
[2021-12-31 03:23] LABS: CHLORIDE 109 mEq/L (98-107)
[2021-12-31] MEDS ORDERED: VANCOMYCIN 1GM PMX (XELLIA) 200 ML IV NR (05:00)
[2021-12-31] MEDS ORDERED: NALOXONE HCL 0.4MG/ML VIAL IV PRN (09:00)
[2021-12-31] MEDS ORDERED: HYDROCODONE/ACETAMINOPHEN 10/325MG TABLET PO PRN (09:00)
[2021-12-31 17:30] VITALS: BP 141/87
[2021-12-31 20:00] VITALS: BP_SYST 122; BP_SYST 125; BP_DIAS 85
[2021-12-31] MEDS: VANCOMYCIN 750MG PREMIX 150 ML IV SCH (21:39)
[2021-12-31] MEDS: HYDROCODONE/ACETAMINOPHEN 10/325MG TABLET PO PRN (21:39)
[2021-12-31] MEDS: PIPERACILLIN/TAZOBACTAM 3.375 G in DEXTROSE 5% WATER 50 ML IV SCH (21:39)
[2022-01-01] VITALS: BP 126/82
[2022-01-01] MEDS: HYDROCODONE/ACETAMINOPHEN 10/325MG TABLET PO PRN ×3 (01:42→17:51)
[2022-01-01 04:00] VITALS: BP 130/84
[2022-01-01] MEDS: VANCOMYCIN 750MG PREMIX 150 ML IV SCH (05:03)
[2022-01-01] MEDS: PIPERACILLIN/TAZOBACTAM 3.375 G in DEXTROSE 5% WATER 50 ML IV SCH ×2 (05:04→15:15)
[2022-01-01 08:00] VITALS: BP 144/99
[2022-01-01 12:00] VITALS: BP 155/101
[2022-01-01 16:00] VITALS: BP 147/107
[2022-01-01] MEDS ORDERED: VANCOMYCIN 1GM PMX (XELLIA) 200 ML IV SCH (18:00)
[2022-01-01] MEDS ORDERED: MAGNESIUM/ALUMINUM HYDROXIDE/SIMETHICONE 30ML UDC PO PRN (18:15)
[2022-01-01] MEDS ORDERED: DOCUSATE SODIUM 100MG CAPSULE PO PRN (18:15)
[2022-01-01] MEDS ORDERED: DEXTROSE 50% WATER 50ML SYRINGE IV PRN ×2 (18:15)
[2022-01-01] MEDS ORDERED: CLONIDINE 0.1MG TABLET PO PRN (18:15)
[2022-01-01] MEDS ORDERED: ONDANSETRON HCL 4MG/2ML INJ IV PRN (18:15)
[2022-01-01] MEDS ORDERED: ACETAMINOPHEN 325MG TABLET PO PRN (18:15)
[2022-01-01 20:00] VITALS: BP 130/89
[2022-01-01] MEDS ORDERED: BLOOD SUGAR DIAGNOSTIC STRIP TEST SCH (21:00)
[2022-01-01] MEDS: DOXEPIN HCL 25MG CAPSULE PO SCH (21:00)
[2022-01-01] MEDS: BLOOD SUGAR DIAGNOSTIC STRIP TEST SCH (21:08)
[2022-01-01] MEDS: HYDROCODONE/ACETAMINOPHEN 5/325MG TABLET PO PRN (22:00)
[2022-01-01] MEDS: CYCLOBENZAPRINE 10MG TABLET PO SCH (22:01)
[2022-01-01] MEDS: MIRTAZAPINE 15MG TABLET PO SCH (22:02)
[2022-01-01] MEDS: ENOXAPARIN 40MG/0.4ML SYR SUBCUT SCH (22:04)
[2022-01-01] MEDS: INSULIN LISPRO 100 UNITS/ML SUBCUT SCH (22:18)
[2022-01-02] VITALS: BP 126/82
[2022-01-02] MEDS: HYDROCODONE/ACETAMINOPHEN 10/325MG TABLET PO PRN ×4 (01:17→21:42)
[2022-01-02 02:28] LABS: CLARITY URINE CLEAR (CLEAR); COLOR URINE YELLOW (YELLOW); KETONES URINE NEGATIVE (NEGATIVE); LEUKOCYTE ESTERASE URINE NEGATIVE (NEGATIVE); NITRITE URINE NEGATIVE (NEGATIVE); OCCULT BLOOD URINE NEGATIVE (NEGATIVE); PH URINE 7.5 (4.5-8.0); PROTEIN URINE NEGATIVE (NEGATIVE); SPECIFIC GRAVITY URINE 1.004 (1.005-1.030)
[2022-01-02 02:54] LABS: *AMPHETAMINES SCREEN URINE NEGATIVE (NEGATIVE); *BARBITURATES SCREEN URINE NEGATIVE (NEGATIVE); *BENZODIAZEPINES SCREEN URINE NEGATIVE (NEGATIVE); *COCAINE SCREEN URINE NEGATIVE (NEGATIVE); CANNABINOID URINE SCREEN NEGATIVE (NEGATIVE); METHADONE URINE SCREEN NEGATIVE (NEGATIVE); OPIATES URINE SCREEN PRESUMTIVE POSITIVE (NEGATIVE); PHENCYCLIDINE URINE SCREEN NEGATIVE (NEGATIVE)
[2022-01-02 03:20] LABS: BASOPHILS % 0.7 % (0.0-2.0); EOSINOPHILS % 2.6 % (0.0-5.0); HEMATOCRIT. 39.3 % (42.0-52.0); LYMPHOCYTES % 16.7 % (20.0-50.0); MEAN CORPUSCULAR VOLUME 78.7 fL (80.0-94.0); MEAN PLATELET VOLUME 10.8 fl (7.4-10.4); MONOCYTES % 8.8 % (2.0-8.0); NEUTROPHILS % 71.2 % (40.0-76.0); PLATELET 154 x1000/uL (130-400); RED BLOOD CELL COUNT 4.99 mill/uL (4.7-6.1); RED CELL DISTRIBUTION WIDTH 18.1 % (11.6-14.6)
[2022-01-02 03:28] LABS: CHLORIDE 114 mEq/L (98-107)
[2022-01-02 03:44] LABS: HDL CHOLESTEROL 40 mg/dL (40-59); LDL CHOLESTEROL 72 mg/dL (5-100); PHOSPHORUS 2.1 mg/dL (2.5-4.9)
[2022-01-02 04:00] VITALS: BP 133/84
[2022-01-02 04:09] LABS: CHLORIDE 115 mEq/L (98-107)
[2022-01-02] MEDS: BLOOD SUGAR DIAGNOSTIC STRIP TEST SCH ×4 (06:30→21:43)
[2022-01-02] MEDS: INSULIN LISPRO 100 UNITS/ML SUBCUT SCH ×4 (07:50→21:00)
[2022-01-02 08:00] VITALS: BP 129/91
[2022-01-02] MEDS ORDERED: POTASSIUM CHLORIDE 20MEQ TABLET SR PO NR ×2 (08:00→12:00)
[2022-01-02] MEDS: PANTOPRAZOLE SODIUM 40 MG/VIAL IV SCH (08:07)
[2022-01-02] MEDS: CYCLOBENZAPRINE 10MG TABLET PO SCH ×3 (08:41→18:01)
[2022-01-02 12:00] VITALS: BP 115/83
[2022-01-02] MEDS ORDERED: IPRATROPIUM/ALBUTEROL 0.5-3(2.5)MG/3ML NEB HHN PRN (12:00)
[2022-01-02] MEDS ORDERED: FLUTICASONE/VILANTEROL 200-25 BLST.W.DEV ORI SCH (12:00)
[2022-01-02] MEDS ORDERED: BUDESONIDE 0.5MG/2ML NEB HHN SCH (12:30)
[2022-01-02] MEDS ORDERED: POTASSIUM PHOS,M-BASIC-D-BASIC 10 MMOL in DEXT 5% WATER 246.6667 ML IV NR (13:00)
[2022-01-02] MEDS: GABAPENTIN 100MG CAPSULE PO SCH ×2 (13:19→21:41)
[2022-01-02] MEDS ORDERED: POTASSIUM-SODIUM PHOSPHATE POWDER PACKET PO NR (15:15)
[2022-01-02 16:00] VITALS: BP 103/71
[2022-01-02] MEDS: HYDROCODONE/ACETAMINOPHEN 5/325MG TABLET PO PRN (16:12)
[2022-01-02 20:00] VITALS: BP 110/71
[2022-01-02] MEDS: MIRTAZAPINE 15MG TABLET PO SCH (21:40)
[2022-01-02] MEDS: ENOXAPARIN 40MG/0.4ML SYR SUBCUT SCH (21:41)
[2022-01-02] MEDS: DOXEPIN HCL 25MG CAPSULE PO SCH (22:16)
[2022-01-03] VITALS (7 sets, daily range): BP systolic 127–145; BP diastolic 92–100
[2022-01-03] MEDS: HYDROCODONE/ACETAMINOPHEN 10/325MG TABLET PO PRN ×3 (04:54→17:18)
[2022-01-03 06:32] LABS: EOSINOPHILS % 4.4 % (0.0-5.0); HEMATOCRIT. 37.5 % (42.0-52.0); HEMOGLOBIN. 12.6 g/dL (14.0-18.0); LYMPHOCYTES % 27.3 % (20.0-50.0); MEAN CORPUSCULAR HEMOGLOBIN 26.5 pg (28.0-32.0); MEAN CORPUSCULAR VOLUME 79.1 fL (80.0-94.0); MEAN PLATELET VOLUME 10.8 fl (7.4-10.4); MONOCYTES % 10.7 % (2.0-8.0); NEUTROPHILS % 56.6 % (40.0-76.0); PLATELET 143 x1000/uL (130-400); RED BLOOD CELL COUNT 4.74 mill/uL (4.7-6.1)
[2022-01-03] MEDS: BLOOD SUGAR DIAGNOSTIC STRIP TEST SCH ×3 (06:39→17:17)
[2022-01-03] MEDS: GABAPENTIN 100MG CAPSULE PO SCH ×2 (06:40→14:49)
[2022-01-03 06:57] LABS: CHLORIDE 112 mEq/L (98-107)
[2022-01-03] MEDS: INSULIN LISPRO 100 UNITS/ML SUBCUT SCH ×3 (07:50→17:17)
[2022-01-03] MEDS ORDERED: POTASSIUM CHLORIDE 20MEQ/PACKET PO SCH ×2 (08:00→09:00)
[2022-01-03] MEDS ORDERED: LIDOCAINE HCL 1% 10 MG/ML 10ML VIAL ONE (09:07)
[2022-01-03] MEDS: CYCLOBENZAPRINE 10MG TABLET PO SCH ×3 (10:14→17:18)
[2022-01-03] MEDS: PANTOPRAZOLE SODIUM 40 MG/VIAL IV SCH (10:15)
[2022-01-03] MEDS ORDERED: MORPHINE SULFATE 2 MG/ML CPJ (NOT FOR IM USE) IV PRN (10:15)
== END 2022-01-03 18:51 | DRG 623 ==
LOC: ER 01:48 → 6WST 05:27 → ENRESERV 15:34 → UNDODISIN 01-03 17:33
PROVIDERS: ADMIT Internal Medicine; ATTEND Internal Medicine
PROC: 0JBR0ZZ Excision of Left Foot Subcutaneous Tissue and Fascia, Open Approach (ICD-10-PCS; principal; 2022-01-03)
PROC: 02HV33Z Insertion of Infusion Device into Superior Vena Cava, Percutaneous Approach (ICD-10-PCS; 2022-01-03)
PROC: B548ZZA Ultrasonography of Superior Vena Cava, Guidance (ICD-10-PCS; 2022-01-03)
PROC: B518ZZA Fluoroscopy of Superior Vena Cava, Guidance (ICD-10-PCS; 2022-01-03)
DX: E11.621 Type 2 diabetes mellitus with foot ulcer (principal); J84.9 Interstitial pulmonary disease, unspecified; L97.428 Non-pressure chronic ulcer of left heel and midfoot with other specified severity; E11.65 Type 2 diabetes mellitus with hyperglycemia; F31.9 Bipolar disorder, unspecified; E87.6 Hypokalemia; F03.90 Unspecified dementia, unspecified severity, without behavioral disturbance, psychotic disturbance, mood disturbance, and anxiety; E11.51 Type 2 diabetes mellitus with diabetic peripheral angiopathy without gangrene; R06.02 Shortness of breath; E78.00 Pure hypercholesterolemia, unspecified; R91.8 Other nonspecific abnormal finding of lung field; J98.6 Disorders of diaphragm; Z20.822 Contact with and (suspected) exposure to COVID-19; R79.89 Other specified abnormal findings of blood chemistry; I11.9 Hypertensive heart disease without heart failure; E11.40 Type 2 diabetes mellitus with diabetic neuropathy, unspecified; Z90.49 Acquired absence of other specified parts of digestive tract; Z89.422 Acquired absence of other left toe(s)
CPT/HCPCS: 36415; 36573; 71045; 73620; 78582; 80048; 80053; 80061; 80076; 80202; 80305; 81003; 82962; 83036; 83605; 83735; 83880; 84100; 84145; 84484; 85025; 85379; 87426; 93005; 93306; 93970; 97162; 99285; A9558; C1725; C1769; C9113; C9803; J1650; J1815; J2270; J2405; J2543; J3370; J3490; J7060; U0003; U0005

== ENCOUNTER 2022-01-03 19:28 | Emergency (ER) | payer BC, MEDICAID ==
[~2022-01-03] VITALS: Ht 172.7 cm; Wt 73.0 kg
[2022-01-03 19:47] VITALS: BP 129/96
[2022-01-03] MEDS ORDERED: ACETAMINOPHEN 325MG TABLET PO ONE (22:15)
== END 2022-01-03 23:29 ==
LOC: ER 19:28
DX: I10 Essential (primary) hypertension (principal)
CPT/HCPCS: 99283

== ENCOUNTER → 2022-01-17 | Emergency (ER) | payer BC, MEDICAID ==
[~2022-01-17] MED LIST changes: +APIX2.5T PO; +ASPI-1497 MT; +ATOR-2 MT; +CARV6.2548 PO; +CLON0.1T PO; -CLON2TAB PO; +CLOP-31 PO; -DOXE100C4 PO; +DOXE25CA3 PO; +FAMO20TA8 MT; +FURO-151 PO; +GABA-529 PO; +HYDR-4009 PO; +LEVE500T19 MT; +LOSA25TA3 MT; -LURA40TA2 PO; +MIRT-89 PO; -MIRT-90 PO; +RISP0.5T65 MT
== END | disposition home or self-care (01) ==
LOC: ER 03:40
DX: R07.89 Other chest pain (principal); R00.0 Tachycardia, unspecified
CPT/HCPCS: 93005; 99283

== ENCOUNTER 2022-01-23 08:19 | Inpatient (IN) | payer BC, MEDICAID ==
[~2022-01-23] VITALS: Ht 172.7 cm; Wt 66.7 kg
[~2022-01-23 08:19] MED LIST changes: -APIX2.5T PO; -ASPI-1497 MT; -ATOR-2 MT; -CARV6.2548 PO; -CLON0.1T PO; -CLOP-31 PO; -DOXE25CA3 PO; -FAMO20TA8 MT; -FURO-151 PO; -GABA-529 PO; -HYDR-4009 PO; -LEVE500T19 MT; -LOSA25TA3 MT; -MIRT-89 PO; -RISP0.5T65 MT
[2022-01-23 09:07] LABS: EOSINOPHILS % 3.6 % (0.0-5.0); HEMATOCRIT. 37.8 % (42.0-52.0); HEMOGLOBIN. 12.1 g/dL (14.0-18.0); LYMPHOCYTES % 16.6 % (20.0-50.0); MEAN CORPUSCULAR HEMOGLOBIN 25.7 pg (28.0-32.0); MEAN CORPUSCULAR VOLUME 80.6 fL (80.0-94.0); MEAN PLATELET VOLUME 9.9 fl (7.4-10.4); MONOCYTES % 5.7 % (2.0-8.0); NEUTROPHILS % 73.1 % (40.0-76.0); PLATELET 229 x1000/uL (130-400); RED CELL DISTRIBUTION WIDTH 18.6 % (11.6-14.6)
[2022-01-23 09:16] LABS: CHLORIDE 108 mEq/L (98-107)
[2022-01-23 10:03] LABS: BG BASE EXCESS 0.2 mmol/L (-2.0-2.0); BG CARBOXYHEMOGLOBIN 1.9 % (0.5-1.5); BG DEOXYHEMOGLOBIN 4.4 % (0.0-5.0); BG FRACTION INSPIRED OXYGEN 34; BG HCO3 ACT 24.2 mmol/L (22.0-26.0); BG METHEMOGLOBIN 0.1 % (0.0-1.5); BG OXYGEN SATURATION 95.5 % (92.0-98.5); BG OXYHEMOGLOBIN 93.6 % (94.0-97.0); BG PH 7.433 (7.350-7.450); BG PO2 78.6 mmHg (75.0-100.0); BG SAMPLE SITE RIGHT RADIAL; BG TOTAL HEMOGLOBIN 12.6 g/dL (12.0-18.0); BG VENT MODE NASAL CANNULA
[2022-01-23] MEDS ORDERED: POTASSIUM CHLORIDE 20MEQ TABLET SR PO NR (11:30)
[2022-01-23] MEDS ORDERED: MORPHINE SULFATE 2 MG/ML CPJ (NOT FOR IM USE) IV NR (11:30)
[2022-01-23] MEDS ORDERED: ONDANSETRON HCL 4MG/2ML INJ IV PRN ×2 (12:30)
[2022-01-23] MEDS: POTASSIUM CHLORIDE 20MEQ TABLET SR PO SCH (13:32)
[2022-01-23 15:00] VITALS: BP 127/98
[2022-01-23 16:00] VITALS: BP 127/98
[2022-01-23] MEDS ORDERED: ACETAMINOPHEN 650MG/20.3ML UDC PO PRN (16:45)
[2022-01-23] MEDS ORDERED: TRAMADOL 50MG TABLET PO PRN (16:45)
[2022-01-23] MEDS: FUROSEMIDE 40MG/4ML VIAL IVP SCH (17:00)
[2022-01-23] MEDS: NICOTINE 14MG PATCH TD SCH (17:30)
[2022-01-23] MEDS ORDERED: IPRATROPIUM/ALBUTEROL 0.5-3(2.5)MG/3ML NEB HHN PRN (18:00)
[2022-01-23 20:52] VITALS: BP 149/105
[2022-01-23] MEDS: CARVEDILOL 6.25 MG TABLET PO SCH (21:46)
[2022-01-24 00:52] VITALS: BP 122/89
[2022-01-24] MEDS: HYDROCODONE/ACETAMINOPHEN 10/325MG TABLET PO PRN ×4 (02:37→21:33)
[2022-01-24] MEDS ORDERED: NALOXONE HCL 0.4MG/ML VIAL IV PRN (02:45)
[2022-01-24 04:00] VITALS: BP 110/78
[2022-01-24 08:00] VITALS: BP 123/92
[2022-01-24] MEDS: NICOTINE 14MG PATCH TD SCH (09:47)
[2022-01-24] MEDS: LOSARTAN POTASSIUM 25 MG TABLET PO SCH ×2 (09:47→12:29)
[2022-01-24] MEDS: POTASSIUM CHLORIDE 20MEQ TABLET SR PO SCH ×2 (09:47→12:29)
[2022-01-24] MEDS: CARVEDILOL 6.25 MG TABLET PO SCH ×2 (09:47→20:34)
[2022-01-24] MEDS: FUROSEMIDE 40MG/4ML VIAL IVP SCH ×3 (09:48→16:50)
[2022-01-24 12:00] VITALS: BP 129/88
[2022-01-24 16:00] VITALS: BP 118/79
[2022-01-24 20:00] VITALS: BP 103/74
[2022-01-24 20:51] LABS: CHLORIDE 109 mEq/L (98-107)
[2022-01-25] VITALS: BP 143/108
[2022-01-25 04:00] VITALS: BP 157/107
[2022-01-25] MEDS: ZOLPIDEM TARTRATE 5MG TABLET PO PRN (04:37)
[2022-01-25 08:00] VITALS: BP 157/117
[2022-01-25] MEDS: POTASSIUM CHLORIDE 20MEQ TABLET SR PO SCH (08:13)
[2022-01-25] MEDS: HYDROCODONE/ACETAMINOPHEN 10/325MG TABLET PO PRN ×3 (08:15→21:18)
[2022-01-25] MEDS: CARVEDILOL 6.25 MG TABLET PO SCH ×2 (08:15→21:00)
[2022-01-25] MEDS: NICOTINE 14MG PATCH TD SCH (08:16)
[2022-01-25] MEDS: LOSARTAN POTASSIUM 25 MG TABLET PO SCH (08:16)
[2022-01-25] MEDS: FUROSEMIDE 40MG/4ML VIAL IVP SCH ×2 (09:00→17:54)
[2022-01-25 12:00] VITALS: BP 128/92
[2022-01-25] MEDS: CHLORDIAZEPOXIDE 25MG CAPSULE PO SCH ×2 (14:50→21:19)
[2022-01-25] MEDS: INSULIN GLARGINE 100 UNITS/ML SUBCUT SCH ×2 (14:51→21:17)
[2022-01-25 16:00] VITALS: BP 142/88
[2022-01-25] MEDS: BLOOD SUGAR DIAGNOSTIC STRIP TEST SCH ×2 (17:48→21:10)
[2022-01-25] MEDS: INSULIN LISPRO 100 UNITS/ML SUBCUT SCH ×2 (17:50→21:00)
[2022-01-25 20:00] VITALS: BP 105/75
[2022-01-26] VITALS: BP 131/62
[2022-01-26 04:00] VITALS: BP 119/81
[2022-01-26] MEDS: CHLORDIAZEPOXIDE 25MG CAPSULE PO SCH ×3 (05:30→20:54)
[2022-01-26] MEDS: HYDROCODONE/ACETAMINOPHEN 10/325MG TABLET PO PRN ×2 (05:31→16:26)
[2022-01-26] MEDS: BLOOD SUGAR DIAGNOSTIC STRIP TEST SCH ×3 (06:47→21:21)
[2022-01-26] MEDS: INSULIN LISPRO 100 UNITS/ML SUBCUT SCH ×3 (06:48→21:00)
[2022-01-26 08:00] VITALS: BP 113/76
[2022-01-26] MEDS: CARVEDILOL 6.25 MG TABLET PO SCH ×2 (09:14→20:54)
[2022-01-26] MEDS: LOSARTAN POTASSIUM 25 MG TABLET PO SCH (09:14)
[2022-01-26] MEDS: FUROSEMIDE 40MG/4ML VIAL IVP SCH ×2 (09:14→16:33)
[2022-01-26] MEDS: POTASSIUM CHLORIDE 20MEQ TABLET SR PO SCH (09:14)
[2022-01-26] MEDS: NICOTINE 14MG PATCH TD SCH (09:15)
[2022-01-26] MEDS: INSULIN GLARGINE 100 UNITS/ML SUBCUT SCH ×4 (09:16→21:41)
[2022-01-26] MEDS ORDERED: IOHEXOL-350 100 ML BOTTLE ONE (09:18)
[2022-01-26 12:00] VITALS: BP 106/81
[2022-01-26] MEDS: LORAZEPAM 1MG TABLET PO PRN (14:18)
[2022-01-26 16:00] VITALS: BP 137/98
[2022-01-26 16:11] LABS: BASOPHILS % 0.6 % (0.0-2.0); EOSINOPHILS % 1.3 % (0.0-5.0); HEMATOCRIT. 44.8 % (42.0-52.0); HEMOGLOBIN. 14.6 g/dL (14.0-18.0); LYMPHOCYTES % 10.1 % (20.0-50.0); MEAN CORPUSCULAR HEMOGLOBIN 26.2 pg (28.0-32.0); MEAN CORPUSCULAR VOLUME 80.1 fL (80.0-94.0); RED BLOOD CELL COUNT 5.59 mill/uL (4.7-6.1); RED CELL DISTRIBUTION WIDTH 17.9 % (11.6-14.6)
[2022-01-26 16:16] LABS: CHLORIDE 105 mEq/L (98-107)
[2022-01-26 16:33] LABS: PLATELET 238 x1000/uL (130-400)
[2022-01-26 20:00] VITALS: BP 120/89
[2022-01-27] VITALS (55 sets, daily range): BP systolic 61–175; BP diastolic 28–116
[2022-01-27 02:07] LABS: BASOPHILS % 0.7 % (0.0-2.0); EOSINOPHILS % 1.5 % (0.0-5.0); HEMATOCRIT. 46.2 % (42.0-52.0); HEMOGLOBIN. 15.1 g/dL (14.0-18.0); LYMPHOCYTES % 17.2 % (20.0-50.0); MEAN CORPUSCULAR HEMOGLOBIN 26.2 pg (28.0-32.0); MEAN CORPUSCULAR VOLUME 80.4 fL (80.0-94.0); MEAN PLATELET VOLUME 9.6 fl (7.4-10.4); MONOCYTES % 7.4 % (2.0-8.0); NEUTROPHILS % 73.2 % (40.0-76.0); PLATELET 305 x1000/uL (130-400); RED BLOOD CELL COUNT 5.74 mill/uL (4.7-6.1); RED CELL DISTRIBUTION WIDTH 18.5 % (11.6-14.6)
[2022-01-27] MEDS ORDERED: ALTEPLASE 100MG/VIAL IV NR ×2 (02:15→02:45)
[2022-01-27] MEDS ORDERED: ALTEPLASE IV NR (02:15)
[2022-01-27] MEDS ORDERED: *NO ASPIRIN X 24 HOURS XX SCH ×2 (02:15)
[2022-01-27] MEDS ORDERED: HYDRALAZINE 20MG/ML VIAL IV PRN (02:15)
[2022-01-27] MEDS ORDERED: CONTAINER EMPTY IV NR (02:15)
[2022-01-27 02:17] LABS: CHLORIDE 107 mEq/L (98-107)
[2022-01-27 02:42] LABS: BG BASE EXCESS 0.2 mmol/L (-2.0-2.0); BG CARBOXYHEMOGLOBIN 0.2 % (0.5-1.5); BG DEOXYHEMOGLOBIN 2.6 % (0.0-5.0); BG FRACTION INSPIRED OXYGEN 30; BG METHEMOGLOBIN 0.3 % (0.0-1.5); BG OXYGEN SATURATION 97.4 % (92.0-98.5); BG OXYHEMOGLOBIN 96.9 % (94.0-97.0); BG PCO2 28.3 mmHg (35.0-45.0); BG PH 7.509 (7.350-7.450); BG PO2 91.3 mmHg (75.0-100.0); BG SAMPLE SITE RIGHT RADIAL; BG TOTAL HEMOGLOBIN 14.4 g/dL (12.0-18.0); BG VENT MODE NASAL CANNULA
[2022-01-27] MEDS: DEXTROSE 50% WATER 50ML SYRINGE IV PRN ×2 (03:24→11:32)
[2022-01-27 04:43] LABS: CLARITY URINE CLEAR (CLEAR); COLOR URINE YELLOW (YELLOW); KETONES URINE NEGATIVE (NEGATIVE); LEUKOCYTE ESTERASE URINE NEGATIVE (NEGATIVE); NITRITE URINE NEGATIVE (NEGATIVE); OCCULT BLOOD URINE TRACE (NEGATIVE); PROTEIN URINE 1+ (NEGATIVE); SPECIFIC GRAVITY URINE 1.031 (1.005-1.030); UROBILINOGEN URINE 0.2 E.U./dL (0.2-1.0)
[2022-01-27] MEDS: CHLORDIAZEPOXIDE 25MG CAPSULE PO SCH ×3 (05:16→21:21)
[2022-01-27] MEDS ORDERED: IOHEXOL-350 100 ML BOTTLE ONE (05:31)
[2022-01-27] MEDS: BLOOD SUGAR DIAGNOSTIC STRIP TEST SCH ×4 (06:30→20:38)
[2022-01-27] MEDS: INSULIN LISPRO 100 UNITS/ML SUBCUT SCH ×4 (07:00→20:38)
[2022-01-27] MEDS ORDERED: POTASSIUM CHLORIDE 20MEQ TABLET SR PO SCH (09:45)
[2022-01-27] MEDS: CARVEDILOL 6.25 MG TABLET PO SCH ×2 (09:48→10:02)
[2022-01-27] MEDS: POTASSIUM CHLORIDE 20MEQ TABLET SR PO SCH (09:48)
[2022-01-27] MEDS: LOSARTAN POTASSIUM 25 MG TABLET PO SCH ×2 (09:48→10:02)
[2022-01-27] MEDS: INSULIN GLARGINE 100 UNITS/ML SUBCUT SCH (09:49)
[2022-01-27] MEDS: NICOTINE 14MG PATCH TD SCH (09:49)
[2022-01-27] MEDS: FUROSEMIDE 40MG/4ML VIAL IVP SCH (09:52)
[2022-01-27] MEDS ORDERED: LORAZEPAM 1MG TABLET PO NR (19:15)
[2022-01-27] MEDS ORDERED: ATORVASTATIN CALCIUM 40MG TABLET PO SCH (21:00)
[2022-01-27] MEDS: ATORVASTATIN CALCIUM 40MG TABLET PO SCH (21:22)
[2022-01-28] VITALS (20 sets, daily range): BP systolic 120–159; BP diastolic 84–111
[2022-01-28 04:03] LABS: CHLORIDE 106 mEq/L (98-107)
[2022-01-28 04:11] LABS: BASOPHILS % 0.5 % (0.0-2.0); EOSINOPHILS % 0.2 % (0.0-5.0); HEMATOCRIT. 42.1 % (42.0-52.0); LYMPHOCYTES % 10.2 % (20.0-50.0); MEAN CORPUSCULAR HEMOGLOBIN 26.1 pg (28.0-32.0); MEAN CORPUSCULAR VOLUME 78.6 fL (80.0-94.0); MEAN PLATELET VOLUME 9.9 fl (7.4-10.4); MONOCYTES % 7.3 % (2.0-8.0); NEUTROPHILS % 81.8 % (40.0-76.0); PLATELET 234 x1000/uL (130-400); RED BLOOD CELL COUNT 5.36 mill/uL (4.7-6.1); RED CELL DISTRIBUTION WIDTH 17.8 % (11.6-14.6)
[2022-01-28] MEDS: CHLORDIAZEPOXIDE 25MG CAPSULE PO SCH ×3 (05:20→21:51)
[2022-01-28] MEDS: INSULIN LISPRO 100 UNITS/ML SUBCUT SCH ×4 (05:50→21:53)
[2022-01-28] MEDS: BLOOD SUGAR DIAGNOSTIC STRIP TEST SCH ×4 (06:17→21:52)
[2022-01-28] MEDS: CLOPIDOGREL 75MG TABLET PO SCH (08:01)
[2022-01-28] MEDS: FUROSEMIDE 40MG TABLET PO SCH (08:01)
[2022-01-28] MEDS: POTASSIUM CHLORIDE 20MEQ TABLET SR PO SCH (08:01)
[2022-01-28] MEDS: ASPIRIN 81MG TABLET PO SCH (08:01)
[2022-01-28] MEDS: CARVEDILOL 6.25 MG TABLET PO SCH ×2 (08:02→21:52)
[2022-01-28] MEDS: NICOTINE 14MG PATCH TD SCH (08:02)
[2022-01-28] MEDS ORDERED: POTASSIUM CHLORIDE 20MEQ/PACKET PO NR (08:15)
[2022-01-28] MEDS ORDERED: IODIXANOL 320 MG/ML 150ML BOTTLE IV ONE (11:50)
[2022-01-28] MEDS ORDERED: LIDOCAINE HCL 1% 50ML VIAL (10MG/ML) ONE (11:51)
[2022-01-28] MEDS ORDERED: HEPARIN 1,000 UNITS PREMIX 0 ML IV ONE (11:51)
[2022-01-28] MEDS ORDERED: HEPARIN 1000 UNITS/ML 10ML ONE (11:51)
[2022-01-28] MEDS ORDERED: IODIXANOL 320MG/ML 100 ML BOTTLE IV ONE (12:12)
[2022-01-28] MEDS ORDERED: MIDAZOLAM HCL 2 MG/2 ML VIAL ONE (13:06)
[2022-01-28] MEDS ORDERED: FENTANYL CITRATE/PF 50MCG/ML 2ML VIAL ONE (13:06)
[2022-01-28] MEDS: ZOLPIDEM TARTRATE 5MG TABLET PO PRN (21:51)
[2022-01-28] MEDS: ATORVASTATIN CALCIUM 40MG TABLET PO SCH (21:51)
[2022-01-29] VITALS (11 sets, daily range): BP systolic 95–130; BP diastolic 59–92
[2022-01-29 06:12] LABS: BASOPHILS % 0.6 % (0.0-2.0); HEMATOCRIT. 44.8 % (42.0-52.0); HEMOGLOBIN. 14.5 g/dL (14.0-18.0); LYMPHOCYTES % 10.8 % (20.0-50.0); MEAN CORPUSCULAR HEMOGLOBIN 26.3 pg (28.0-32.0); MEAN CORPUSCULAR VOLUME 81.2 fL (80.0-94.0); MEAN PLATELET VOLUME 10.3 fl (7.4-10.4); MONOCYTES % 7.5 % (2.0-8.0); NEUTROPHILS % 80.1 % (40.0-76.0); PLATELET 216 x1000/uL (130-400); RED BLOOD CELL COUNT 5.52 mill/uL (4.7-6.1); RED CELL DISTRIBUTION WIDTH 18.4 % (11.6-14.6)
[2022-01-29 06:18] LABS: CHLORIDE 107 mEq/L (98-107)
[2022-01-29] MEDS: CHLORDIAZEPOXIDE 25MG CAPSULE PO SCH (06:23)
[2022-01-29] MEDS: BLOOD SUGAR DIAGNOSTIC STRIP TEST SCH ×5 (06:53→21:35)
[2022-01-29] MEDS: INSULIN LISPRO 100 UNITS/ML SUBCUT SCH ×4 (08:53→21:00)
[2022-01-29] MEDS: NICOTINE 14MG PATCH TD SCH (08:53)
[2022-01-29] MEDS: ASPIRIN 81MG TABLET PO SCH (08:53)
[2022-01-29] MEDS: CARVEDILOL 6.25 MG TABLET PO SCH ×2 (08:54→21:26)
[2022-01-29] MEDS: FUROSEMIDE 40MG TABLET PO SCH (08:54)
[2022-01-29] MEDS: CLOPIDOGREL 75MG TABLET PO SCH (08:54)
[2022-01-29] MEDS: LOSARTAN POTASSIUM 25 MG TABLET PO SCH (08:54)
[2022-01-29] MEDS: LORAZEPAM 1MG TABLET PO PRN (10:58)
[2022-01-29] MEDS: APIXABAN 2.5 MG TABLET PO SCH (17:00)
[2022-01-29] MEDS: ATORVASTATIN CALCIUM 40MG TABLET PO SCH (21:27)
[2022-01-30] VITALS (14 sets, daily range): BP systolic 108–135; BP diastolic 70–93
[2022-01-30] MEDS: INSULIN LISPRO 100 UNITS/ML SUBCUT SCH ×3 (08:00→17:51)
[2022-01-30] MEDS: LOSARTAN POTASSIUM 25 MG TABLET PO SCH (09:03)
[2022-01-30] MEDS: CLOPIDOGREL 75MG TABLET PO SCH (09:03)
[2022-01-30] MEDS: FUROSEMIDE 40MG TABLET PO SCH (09:03)
[2022-01-30] MEDS: NICOTINE 14MG PATCH TD SCH (09:03)
[2022-01-30] MEDS: CARVEDILOL 6.25 MG TABLET PO SCH (09:03)
[2022-01-30] MEDS: ASPIRIN 81MG TABLET PO SCH (09:03)
[2022-01-30] MEDS: APIXABAN 2.5 MG TABLET PO SCH ×2 (09:04→17:05)
[2022-01-30] MEDS: BLOOD SUGAR DIAGNOSTIC STRIP TEST SCH ×2 (12:18→17:23)
== END 2022-01-30 20:25 | DRG 40 ==
LOC: ER 08:33 → 7WST 11:03 → ENRESERV 12:42 → MICUSO 01-27 02:07 → 5EST 01-28 10:54
PROVIDERS: ADMIT Internal Medicine; ATTEND Internal Medicine
PROC: 0JBR0ZZ Excision of Left Foot Subcutaneous Tissue and Fascia, Open Approach (ICD-10-PCS; principal; 2022-01-25)
PROC: 3E03317 Introduction of Other Thrombolytic into Peripheral Vein, Percutaneous Approach (ICD-10-PCS; 2022-01-27)
PROC: 047N3ZZ Dilation of Left Popliteal Artery, Percutaneous Approach (ICD-10-PCS; 2022-01-28)
PROC: 047U3ZZ Dilation of Left Peroneal Artery, Percutaneous Approach (ICD-10-PCS; 2022-01-28)
DX: I63.9 Cerebral infarction, unspecified (principal); I50.43 Acute on chronic combined systolic (congestive) and diastolic (congestive) heart failure; J96.20 Acute and chronic respiratory failure, unspecified whether with hypoxia or hypercapnia; J84.9 Interstitial pulmonary disease, unspecified; I42.9 Cardiomyopathy, unspecified; G93.40 Encephalopathy, unspecified; G81.91 Hemiplegia, unspecified affecting right dominant side; L97.509 Non-pressure chronic ulcer of other part of unspecified foot with unspecified severity; J44.9 Chronic obstructive pulmonary disease, unspecified; I11.0 Hypertensive heart disease with heart failure; E11.621 Type 2 diabetes mellitus with foot ulcer; E11.51 Type 2 diabetes mellitus with diabetic peripheral angiopathy without gangrene; E78.00 Pure hypercholesterolemia, unspecified; E87.8 Other disorders of electrolyte and fluid balance, not elsewhere classified; E87.6 Hypokalemia; Z20.822 Contact with and (suspected) exposure to COVID-19; E78.5 Hyperlipidemia, unspecified; R29.717 NIHSS score 17; D64.9 Anemia, unspecified; M48.56XG Collapsed vertebra, not elsewhere classified, lumbar region, subsequent encounter for fracture with delayed healing; R47.1 Dysarthria and anarthria; I70.1 Atherosclerosis of renal artery; F03.90 Unspecified dementia, unspecified severity, without behavioral disturbance, psychotic disturbance, mood disturbance, and anxiety; F32.A Depression, unspecified; F10.10 Alcohol abuse, uncomplicated; F17.210 Nicotine dependence, cigarettes, uncomplicated; T87.89 Other complications of amputation stump; Z79.899 Other long term (current) drug therapy
CPT/HCPCS: 36415; 36600; 37224; 70496; 70498; 70551; 71045; 75635; 75710; 80048; 80053; 80061; 81003; 82140; 82375; 82805; 82962; 83036; 83735; 83880; 84145; 84443; 84484; 85025; 85347; 87426; 93005; 93308; 93923; 99285; C1725; C1760; C1769; C1887; C1893; C1894; C9803; J1644; J1815; J1940; J2250; J2270; J2997; J3010; J3490; J7060; Q9967; A4315

== ENCOUNTER 2022-02-08 13:26 | Inpatient (IN) | payer BC, MEDICAID ==
[2022-02-08] VITALS (7 sets, daily range): BP systolic 98–152; BP diastolic 18–105
[~2022-02-08] VITALS: Ht 175.3 cm; Wt 63.0 kg
[2022-02-08] MEDS ORDERED: VANCOMYCIN 1G PREMIX 200 ML IV ONE (14:30)
[2022-02-08] MEDS ORDERED: SODIUM CHLORIDE 0.9% 1000ML BAG (SEPSIS BOLUS) IV ONE (14:30)
[2022-02-08] MEDS ORDERED: PIPERACILLIN/TAZ 3.375G PREMIX 50 ML IV ONE (14:30)
[2022-02-08 14:55] LABS: BASOPHILS % 0.7 % (0.0-2.0); EOSINOPHILS % 2.9 % (0.0-5.0); HEMATOCRIT. 41.1 % (42.0-52.0); HEMOGLOBIN. 13.4 g/dL (14.0-18.0); LYMPHOCYTES % 17.3 % (20.0-50.0); MEAN CORPUSCULAR HEMOGLOBIN 26.1 pg (28.0-32.0); MEAN CORPUSCULAR VOLUME 79.9 fL (80.0-94.0); MEAN PLATELET VOLUME 10.4 fl (7.4-10.4); MONOCYTES % 8.9 % (2.0-8.0); NEUTROPHILS % 70.2 % (40.0-76.0); PLATELET 190 x1000/uL (130-400); RED BLOOD CELL COUNT 5.14 mill/uL (4.7-6.1); RED CELL DISTRIBUTION WIDTH 17.5 % (11.6-14.6)
[2022-02-08 15:04] LABS: CHLORIDE 105 mEq/L (98-107)
[2022-02-08 15:14] LABS: ETHANOL BLOOD < 10 mg/dL
[2022-02-08] MEDS ORDERED: MIDAZOLAM HCL 2 MG/2 ML VIAL IV ONE (15:15)
[2022-02-08] MEDS ORDERED: LEVETIRACETAM 500MG PREMIX 100 ML IV ONE (17:00)
[2022-02-08 17:57] LABS: INR 1.3; PARTIAL THROMBOPLASTIN TIME 36.3 sec (23.4-31.0); PROTHROMBIN TIME 13.4 sec (9.6-11.0)
[2022-02-08] MEDS: LORAZEPAM 2MG/ML CPJ IV PRN (22:12)
[2022-02-08] MEDS ORDERED: NICARDIPINE 100 MG in SODIUM CHLORIDE 0.9% 60 ML IV PRN (22:45)
[2022-02-08] MEDS ORDERED: MORPHINE SULFATE 2 MG/ML CPJ (NOT FOR IM USE) IV PRN (22:45)
[2022-02-08] MEDS: DEXT 5%/LACTATED RINGERS 1,000 ML IV SCH (23:00)
[2022-02-09] VITALS (99 sets, daily range): BP systolic 80–151; BP diastolic 28–118
[2022-02-09] MEDS ORDERED: ONDANSETRON HCL 4MG/2ML INJ IV PRN (02:30)
[2022-02-09] MEDS ORDERED: DEXTROSE 50% WATER 50ML SYRINGE IV PRN (02:30)
[2022-02-09] MEDS ORDERED: MORPHINE SULFATE 4 MG/ML CPJ (NOT FOR IM USE) IV PRN (04:30)
[2022-02-09] MEDS ORDERED: DIAZEPAM 5 MG/ML 2ML CPJ IM PRN (04:30)
[2022-02-09] MEDS: BLOOD SUGAR DIAGNOSTIC STRIP TEST SCH ×4 (05:29→20:42)
[2022-02-09] MEDS: INSULIN LISPRO 100 UNITS/ML SUBCUT SCH ×4 (06:13→20:55)
[2022-02-09] MEDS: LEVETIRACETAM 500MG PREMIX 100 ML IV SCH ×2 (08:48→20:43)
[2022-02-09] MEDS: PANTOPRAZOLE SODIUM 40 MG/VIAL IV SCH (08:50)
[2022-02-09] MEDS: DEXAMETHASONE 4MG/ML 1ML VIAL IV SCH ×4 (10:06→23:08)
[2022-02-09] MEDS ORDERED: CARV6.2548 PO (11:01)
[2022-02-09] MEDS ORDERED: ATOR-2 MT (11:14)
[2022-02-09] MEDS ORDERED: GABA-529 PO (11:14)
[2022-02-09] MEDS ORDERED: ASPI-1497 MT (11:14)
[2022-02-09] MEDS ORDERED: LOSA25TA3 MT (11:14)
[2022-02-09] MEDS ORDERED: MIRT-89 PO (11:14)
[2022-02-09] MEDS ORDERED: CLOP-31 PO (11:14)
[2022-02-09] MEDS ORDERED: HYDR-4009 PO (11:14)
[2022-02-09] MEDS ORDERED: CLON0.1T PO (11:14)
[2022-02-09] MEDS ORDERED: APIX2.5T PO (11:14)
[2022-02-09] MEDS ORDERED: FURO-151 PO (11:14)
[2022-02-09] MEDS ORDERED: DOXE25CA3 PO (11:14)
[2022-02-09 11:42] LABS: HEMATOCRIT 41.2 % (42.0-52.0); HEMOGLOBIN 13.3 g/dL (14.0-18.0); MEAN CORPUSCULAR HEMOGLOBIN 26.1 pg (28.0-32.0); MEAN CORPUSCULAR VOLUME 80.6 fL (80.0-94.0); PLATELET 173 x1000/uL (130-400); RED BLOOD CELL COUNT 5.11 mill/uL (4.7-6.1); RED CELL DISTRIBUTION WIDTH 16.7 % (11.6-14.6)
[2022-02-09 11:57] LABS: CHLORIDE 109 mEq/L (98-107)
[2022-02-09 13:12] LABS: CLARITY URINE CLEAR (CLEAR); COLOR URINE YELLOW (YELLOW); KETONES URINE NEGATIVE (NEGATIVE); LEUKOCYTE ESTERASE URINE NEGATIVE (NEGATIVE); NITRITE URINE NEGATIVE (NEGATIVE); OCCULT BLOOD URINE NEGATIVE (NEGATIVE); PROTEIN URINE NEGATIVE (NEGATIVE); SPECIFIC GRAVITY URINE 1.012 (1.005-1.030); UROBILINOGEN URINE 0.2 E.U./dL (0.2-1.0)
[2022-02-09] MEDS ORDERED: POTASSIUM CHLORIDE 20MEQ TABLET SR PO NR (13:15)
[2022-02-09 13:52] LABS: *AMPHETAMINES SCREEN URINE NEGATIVE (NEGATIVE); *BARBITURATES SCREEN URINE NEGATIVE (NEGATIVE); *BENZODIAZEPINES SCREEN URINE PRESUMTIVE POSITIVE (NEGATIVE); *COCAINE SCREEN URINE NEGATIVE (NEGATIVE); CANNABINOID URINE SCREEN NEGATIVE (NEGATIVE); METHADONE URINE SCREEN NEGATIVE (NEGATIVE); OPIATES URINE SCREEN PRESUMTIVE POSITIVE (NEGATIVE); PHENCYCLIDINE URINE SCREEN NEGATIVE (NEGATIVE)
[2022-02-09] MEDS: DEXT 5%/LACTATED RINGERS 1,000 ML IV SCH (16:12)
[2022-02-10] VITALS (53 sets, daily range): BP systolic 114–156; BP diastolic 67–124
[2022-02-10] MEDS: DEXAMETHASONE 4MG/ML 1ML VIAL IV SCH ×2 (05:17→12:00)
[2022-02-10 05:28] LABS: BASOPHILS % 0.1 % (0.0-2.0); HEMATOCRIT. 40.5 % (42.0-52.0); HEMOGLOBIN. 13.5 g/dL (14.0-18.0); LYMPHOCYTES % 8.4 % (20.0-50.0); MEAN CORPUSCULAR HEMOGLOBIN 25.9 pg (28.0-32.0); MEAN CORPUSCULAR VOLUME 77.9 fL (80.0-94.0); MEAN PLATELET VOLUME 10.6 fl (7.4-10.4); MONOCYTES % 2.1 % (2.0-8.0); NEUTROPHILS % 89.4 % (40.0-76.0); PLATELET 205 x1000/uL (130-400); RED BLOOD CELL COUNT 5.21 mill/uL (4.7-6.1)
[2022-02-10] MEDS: BLOOD SUGAR DIAGNOSTIC STRIP TEST SCH ×4 (05:39→21:00)
[2022-02-10 05:40] LABS: CHLORIDE 107 mEq/L (98-107)
[2022-02-10] MEDS: INSULIN LISPRO 100 UNITS/ML SUBCUT SCH ×5 (05:59→20:27)
[2022-02-10] MEDS: DEXT 5%/LACTATED RINGERS 1,000 ML IV SCH (07:58)
[2022-02-10] MEDS: LEVETIRACETAM 500MG PREMIX 100 ML IV SCH ×2 (09:00→21:00)
[2022-02-10] MEDS: PANTOPRAZOLE SODIUM 40 MG/VIAL IV SCH (09:00)
[2022-02-10] MEDS ORDERED: POTASSIUM CHLORIDE 20MEQ/PACKET PO SCH (11:00)
[2022-02-11] VITALS: BP 141/99
[2022-02-11] MEDS: DEXT 5%/LACTATED RINGERS 1,000 ML IV SCH ×2 (00:45→17:25)
[2022-02-11 04:00] VITALS: BP 137/97
[2022-02-11 06:48] LABS: BASOPHILS % 0.2 % (0.0-2.0); EOSINOPHILS % 0.3 % (0.0-5.0); HEMATOCRIT. 39.5 % (42.0-52.0); HEMOGLOBIN. 12.9 g/dL (14.0-18.0); MEAN CORPUSCULAR HEMOGLOBIN 25.8 pg (28.0-32.0); MEAN PLATELET VOLUME 10.6 fl (7.4-10.4); MONOCYTES % 5.3 % (2.0-8.0); NEUTROPHILS % 82.2 % (40.0-76.0); PLATELET 208 x1000/uL (130-400); RED CELL DISTRIBUTION WIDTH 17.3 % (11.6-14.6)
[2022-02-11] MEDS: BLOOD SUGAR DIAGNOSTIC STRIP TEST SCH ×4 (07:20→21:00)
[2022-02-11] MEDS: INSULIN LISPRO 100 UNITS/ML SUBCUT SCH ×4 (07:50→21:00)
[2022-02-11 08:00] VITALS: BP 144/96
[2022-02-11] MEDS: PANTOPRAZOLE SODIUM 40 MG/VIAL IV SCH (09:00)
[2022-02-11 09:53] LABS: CHLORIDE 111 mEq/L (98-107)
[2022-02-11] MEDS: POTASSIUM CHLORIDE 20MEQ TABLET SR PO SCH ×2 (10:15→18:59)
[2022-02-11 12:00] VITALS: BP 128/84
[2022-02-11] MEDS: LEVETIRACETAM 500MG PREMIX 100 ML IV SCH (12:02)
[2022-02-11 16:00] VITALS: BP 150/99
[2022-02-11] MEDS: RISPERIDONE 0.5MG TABLET PO SCH (18:58)
[2022-02-11 20:00] VITALS: BP 130/86
[2022-02-11] MEDS: LEVETIRACETAM 500MG TABLET PO SCH (21:07)
[2022-02-12] VITALS: BP 128/57
[2022-02-12 04:00] VITALS: BP 119/69
[2022-02-12] MEDS: BLOOD SUGAR DIAGNOSTIC STRIP TEST SCH ×4 (07:20→21:00)
[2022-02-12 08:00] VITALS: BP 135/93
[2022-02-12] MEDS: RISPERIDONE 0.5MG TABLET PO SCH ×2 (08:58→17:28)
[2022-02-12] MEDS: LEVETIRACETAM 500MG TABLET PO SCH ×2 (08:58→22:53)
[2022-02-12] MEDS: FAMOTIDINE 20MG TABLET PO SCH ×2 (08:58→17:28)
[2022-02-12] MEDS: INSULIN LISPRO 100 UNITS/ML SUBCUT SCH ×4 (09:07→23:02)
[2022-02-12] MEDS: DEXT 5%/LACTATED RINGERS 1,000 ML IV SCH (10:05)
[2022-02-12 12:00] VITALS: BP 110/80
[2022-02-12 16:00] VITALS: BP 115/79
[2022-02-12 17:37] LABS: BASOPHILS % 0.6 % (0.0-2.0); EOSINOPHILS % 1.5 % (0.0-5.0); HEMOGLOBIN. 13.4 g/dL (14.0-18.0); LYMPHOCYTES % 21.6 % (20.0-50.0); MEAN CORPUSCULAR HEMOGLOBIN 26.2 pg (28.0-32.0); MEAN CORPUSCULAR VOLUME 80.1 fL (80.0-94.0); MEAN PLATELET VOLUME 10.3 fl (7.4-10.4); MONOCYTES % 7.1 % (2.0-8.0); NEUTROPHILS % 69.2 % (40.0-76.0); PLATELET 210 x1000/uL (130-400); RED BLOOD CELL COUNT 5.12 mill/uL (4.7-6.1); RED CELL DISTRIBUTION WIDTH 17.2 % (11.6-14.6)
[2022-02-12 18:31] LABS: CHLORIDE 113 mEq/L (98-107)
[2022-02-12 20:00] VITALS: BP 123/71
[2022-02-13] VITALS: BP 129/85
[2022-02-13 04:00] VITALS: BP 116/70
[2022-02-13] MEDS: BLOOD SUGAR DIAGNOSTIC STRIP TEST SCH ×4 (07:20→20:58)
[2022-02-13] MEDS: INSULIN LISPRO 100 UNITS/ML SUBCUT SCH ×4 (07:50→20:43)
[2022-02-13] MEDS: FAMOTIDINE 20MG TABLET PO SCH (09:00)
[2022-02-13] MEDS: RISPERIDONE 0.5MG TABLET PO SCH ×2 (09:00→18:08)
[2022-02-13] MEDS: LEVETIRACETAM 500MG TABLET PO SCH ×2 (09:00→20:41)
[2022-02-13 12:00] VITALS: BP 141/88
[2022-02-13] MEDS ORDERED: OLANZAPINE 10 MG/VIAL IM PRN (12:00)
[2022-02-13 16:00] VITALS: BP 132/74
[2022-02-13] MEDS: DEXT 5%/LACTATED RINGERS 1,000 ML IV SCH (19:25)
[2022-02-13] MEDS: POTASSIUM CHLORIDE 20MEQ TABLET SR PO SCH (19:44)
[2022-02-13 20:00] VITALS: BP 122/89
[2022-02-13] MEDS: LORAZEPAM 2MG/ML CPJ IV PRN (21:15)
[2022-02-13] MEDS: LORAZEPAM 1MG TABLET PO PRN (23:43)
[2022-02-14] MEDS: LORAZEPAM 1MG TABLET PO PRN ×2 (04:15→11:26)
[2022-02-14] MEDS: BLOOD SUGAR DIAGNOSTIC STRIP TEST SCH (06:38)
[2022-02-14] MEDS: LEVETIRACETAM 500MG TABLET PO SCH (09:00)
[2022-02-14] MEDS: POTASSIUM CHLORIDE 20MEQ TABLET SR PO SCH (09:00)
[2022-02-14] MEDS ORDERED: RISPERIDONE 0.5MG TABLET PO SCH (11:00)
[2022-02-14] MEDS ORDERED: HALOPERIDOL LACTATE 5MG/ML VIAL IM NR (11:45)
[2022-02-14] MEDS ORDERED: DIPHENHYDRAMINE 50MG/ML VIAL IM NR (11:45)
[2022-02-14 11:57] VITALS: BP 125/89
[2022-02-14] MEDS: DEXT 5%/LACTATED RINGERS 1,000 ML IV SCH (12:05)
[2022-02-14 14:16] VITALS: BP 125/89
[2022-02-14 16:00] VITALS: BP 106/79
[2022-02-14] MEDS ORDERED: MIRTAZAPINE 15MG TABLET PO SCH (21:00)
== END 2022-02-14 19:45 | DRG 41 ==
LOC: ER 14:03 → EDBEDREQTM 17:01 → EDBEDREQ 17:01 → EDBEDREQSVC 17:01 → ENRESERV 18:40 → MICUNO 22:41 → 6EST 02-10 17:19
PROVIDERS: ADMIT Internal Medicine; ATTEND Internal Medicine
PROC: 0JBR0ZZ Excision of Left Foot Subcutaneous Tissue and Fascia, Open Approach (ICD-10-PCS; principal; 2022-02-12)
DX: I61.1 Nontraumatic intracerebral hemorrhage in hemisphere, cortical (principal); E44.1 Mild protein-calorie malnutrition; G93.40 Encephalopathy, unspecified; I50.22 Chronic systolic (congestive) heart failure; M48.56XA Collapsed vertebra, not elsewhere classified, lumbar region, initial encounter for fracture; I42.9 Cardiomyopathy, unspecified; E78.00 Pure hypercholesterolemia, unspecified; I11.0 Hypertensive heart disease with heart failure; J44.9 Chronic obstructive pulmonary disease, unspecified; E78.5 Hyperlipidemia, unspecified; L97.529 Non-pressure chronic ulcer of other part of left foot with unspecified severity; E11.51 Type 2 diabetes mellitus with diabetic peripheral angiopathy without gangrene; R45.1 Restlessness and agitation; I70.1 Atherosclerosis of renal artery; E11.621 Type 2 diabetes mellitus with foot ulcer; F31.9 Bipolar disorder, unspecified; F03.90 Unspecified dementia, unspecified severity, without behavioral disturbance, psychotic disturbance, mood disturbance, and anxiety; E87.6 Hypokalemia; F17.200 Nicotine dependence, unspecified, uncomplicated; Z68.20 Body mass index [BMI] 20.0-20.9, adult; Z91.19 Patient's noncompliance with other medical treatment and regimen; Z79.899 Other long term (current) drug therapy
CPT/HCPCS: 36415; 71045; 80048; 80053; 80305; 80307; 80320; 80329; 81003; 82140; 82962; 83605; 83735; 83880; 84145; 84484; 85025; 85027; 86850; 86900; 93005; 97162; 97530; 99291; C9113; J1100; J1200; J1630; J1815; J1953; J2060; J2250; J2270; J2543; J3370; J3490; J7030; J7121; G0480

== ENCOUNTER 2022-02-23 13:14 | Inpatient (IN) | payer BC, MEDICAID ==
[~2022-02-23] VITALS: Ht 172.7 cm; Wt 63.5 kg
[~2022-02-23 13:14] MED LIST changes: +APIX2.5T PO; +ASPI-1497 MT; +ATOR-2 MT; +CARV6.2548 PO; +CLON0.1T PO; +CLOP-31 PO; +DOXE25CA3 PO; +FURO-151 PO; +GABA-529 PO; +HYDR-4009 PO; +LOSA25TA3 MT; +MIRT-89 PO
[2022-02-23] MEDS ORDERED: SODIUM CHLORIDE 0.9% 1,000 ML IV ONE (13:45)
[2022-02-23] MEDS ORDERED: LORAZEPAM 2MG/ML CPJ IM ONE ×2 (14:30→15:30)
[2022-02-23 14:31] LABS: BASOPHILS % 0.4 % (0.0-2.0); EOSINOPHILS % 3.3 % (0.0-5.0); HEMATOCRIT. 36.1 % (42.0-52.0); HEMOGLOBIN. 11.7 g/dL (14.0-18.0); LYMPHOCYTES % 13.5 % (20.0-50.0); MEAN CORPUSCULAR HEMOGLOBIN 26.2 pg (28.0-32.0); MEAN CORPUSCULAR VOLUME 81.1 fL (80.0-94.0); MONOCYTES % 5.7 % (2.0-8.0); NEUTROPHILS % 77.1 % (40.0-76.0); PLATELET 141 x1000/uL (130-400); RED BLOOD CELL COUNT 4.45 mill/uL (4.7-6.1); RED CELL DISTRIBUTION WIDTH 17.3 % (11.6-14.6)
[2022-02-23 14:51] LABS: CHLORIDE 101 mEq/L (98-107)
[2022-02-23 14:52] LABS: CLARITY URINE CLEAR (CLEAR); COLOR URINE YELLOW (YELLOW); KETONES URINE NEGATIVE (NEGATIVE); LEUKOCYTE ESTERASE URINE NEGATIVE (NEGATIVE); NITRITE URINE NEGATIVE (NEGATIVE); OCCULT BLOOD URINE NEGATIVE (NEGATIVE); PROTEIN URINE NEGATIVE (NEGATIVE); SPECIFIC GRAVITY URINE 1.011 (1.005-1.030); UROBILINOGEN URINE 0.2 E.U./dL (0.2-1.0)
[2022-02-23] MEDS ORDERED: LEVETIRACETAM 500MG PREMIX 100 ML IV ONE (16:00)
[2022-02-23 16:35] LABS: PARTIAL THROMBOPLASTIN TIME 27.1 sec (23.4-31.0)
[2022-02-23] MEDS ORDERED: LORAZEPAM 2MG/ML CPJ IV ONE ×2 (18:00→20:30)
[2022-02-23] MEDS ORDERED: LEVETIRACETAM 500MG PREMIX 100 ML IV SCH (19:30)
[2022-02-24] MEDS: LEVETIRACETAM 500MG PREMIX 100 ML IV SCH ×4 (01:58→21:00)
[2022-02-24 02:05] VITALS: BP 140/91
[2022-02-24] MEDS ORDERED: LORAZEPAM 2MG/ML CPJ IV PRN (03:00)
[2022-02-24] MEDS ORDERED: DEXTROSE 50% WATER 50ML SYRINGE IV PRN ×2 (03:00→15:30)
[2022-02-24 05:31] LABS: BASOPHILS % 0.5 % (0.0-2.0); EOSINOPHILS % 2.5 % (0.0-5.0); HEMATOCRIT. 39.3 % (42.0-52.0); MEAN CORPUSCULAR HEMOGLOBIN 26.4 pg (28.0-32.0); MEAN CORPUSCULAR VOLUME 79.8 fL (80.0-94.0); MEAN PLATELET VOLUME 10.1 fl (7.4-10.4); MONOCYTES % 7.3 % (2.0-8.0); NEUTROPHILS % 78.7 % (40.0-76.0); PLATELET 144 x1000/uL (130-400); RED BLOOD CELL COUNT 4.93 mill/uL (4.7-6.1); RED CELL DISTRIBUTION WIDTH 17.1 % (11.6-14.6)
[2022-02-24 05:38] LABS: CHLORIDE 103 mEq/L (98-107)
[2022-02-24] MEDS: BLOOD SUGAR DIAGNOSTIC STRIP TEST SCH ×4 (06:26→20:37)
[2022-02-24 08:00] VITALS: BP 107/74
[2022-02-24] MEDS: RISPERIDONE 0.5MG TABLET PO SCH ×2 (09:15→18:09)
[2022-02-24] MEDS: LOSARTAN POTASSIUM 25 MG TABLET PO SCH (09:15)
[2022-02-24] MEDS: INSULIN LISPRO 100 UNITS/ML SUBCUT SCH ×4 (09:17→20:34)
[2022-02-24] MEDS: POTASSIUM CHLORIDE 20MEQ TABLET SR PO SCH (09:45)
[2022-02-24 12:00] VITALS: BP 97/64
[2022-02-24] MEDS ORDERED: FAMO20TA8 MT (15:10)
[2022-02-24] MEDS ORDERED: LEVE500T19 MT (15:11)
[2022-02-24] MEDS ORDERED: RISP0.5T65 MT (15:13)
[2022-02-24] MEDS ORDERED: CLONIDINE 0.1MG TABLET PO SCH (15:30)
[2022-02-24] MEDS ORDERED: ONDANSETRON HCL 4MG/2ML INJ IV PRN (15:30)
[2022-02-24 16:00] VITALS: BP 115/74
[2022-02-24] MEDS ORDERED: NALOXONE HCL 0.4MG/ML VIAL IV PRN (16:15)
[2022-02-24] MEDS ORDERED: BLOOD SUGAR DIAGNOSTIC STRIP TEST SCH (17:20)
[2022-02-24] MEDS ORDERED: INSULIN LISPRO 100 UNITS/ML SUBCUT SCH (17:50)
[2022-02-24] MEDS: CYCLOBENZAPRINE 10MG TABLET PO SCH (18:05)
[2022-02-24] MEDS: CARVEDILOL 6.25 MG TABLET PO SCH (18:06)
[2022-02-24] MEDS: APIXABAN 2.5 MG TABLET PO SCH (18:06)
[2022-02-24 20:00] VITALS: BP 102/79
[2022-02-24] MEDS: DOXEPIN HCL 25MG CAPSULE PO SCH (20:33)
[2022-02-24] MEDS: MIRTAZAPINE 15MG TABLET PO SCH (20:33)
[2022-02-24] MEDS: GABAPENTIN 100MG CAPSULE PO SCH (21:24)
[2022-02-24] MEDS: HYDROCODONE/ACETAMINOPHEN 5/325MG TABLET PO PRN (21:24)
[2022-02-25] VITALS: BP 113/74
[2022-02-25] MEDS: HYDROCODONE/ACETAMINOPHEN 5/325MG TABLET PO PRN (02:40)
[2022-02-25 04:00] VITALS: BP 102/71
[2022-02-25] MEDS: GABAPENTIN 100MG CAPSULE PO SCH ×3 (05:19→21:24)
[2022-02-25] MEDS: BLOOD SUGAR DIAGNOSTIC STRIP TEST SCH ×4 (05:25→21:23)
[2022-02-25] MEDS: OMEPRAZOLE 20MG CAPSULE EXTENDED RELEASE PO SCH ×2 (07:20→09:23)
[2022-02-25 07:22] LABS: BASOPHILS % 0.5 % (0.0-2.0); EOSINOPHILS % 4.7 % (0.0-5.0); HEMATOCRIT. 34.7 % (42.0-52.0); HEMOGLOBIN. 11.5 g/dL (14.0-18.0); LYMPHOCYTES % 25.1 % (20.0-50.0); MEAN CORPUSCULAR HEMOGLOBIN 26.3 pg (28.0-32.0); MEAN CORPUSCULAR VOLUME 79.4 fL (80.0-94.0); MEAN PLATELET VOLUME 9.7 fl (7.4-10.4); MONOCYTES % 7.6 % (2.0-8.0); NEUTROPHILS % 62.1 % (40.0-76.0); PLATELET 132 x1000/uL (130-400); RED BLOOD CELL COUNT 4.37 mill/uL (4.7-6.1)
[2022-02-25 08:00] VITALS: BP 142/96
[2022-02-25 08:01] LABS: CHLORIDE 102 mEq/L (98-107)
[2022-02-25 08:09] LABS: LDL CHOLESTEROL 76 mg/dL (5-100); PHOSPHORUS 3.1 mg/dL (2.5-4.9); T4 FREE 0.91 ng/dL (0.76-1.46)
[2022-02-25] MEDS: POTASSIUM CHLORIDE 20MEQ TABLET SR PO SCH ×2 (09:00→09:22)
[2022-02-25] MEDS: FUROSEMIDE 40MG TABLET PO SCH ×2 (09:00→09:23)
[2022-02-25] MEDS: ASPIRIN 81MG EC TABLET PO SCH ×2 (09:00→09:23)
[2022-02-25] MEDS: CARVEDILOL 6.25 MG TABLET PO SCH ×3 (09:00→17:55)
[2022-02-25] MEDS: RISPERIDONE 0.5MG TABLET PO SCH ×3 (09:00→17:55)
[2022-02-25] MEDS: LOSARTAN POTASSIUM 25 MG TABLET PO SCH ×2 (09:00→09:23)
[2022-02-25] MEDS: APIXABAN 2.5 MG TABLET PO SCH ×3 (09:00→17:55)
[2022-02-25] MEDS ORDERED: POTASSIUM CHLORIDE 20MEQ/PACKET PO SCH (09:00)
[2022-02-25] MEDS: CYCLOBENZAPRINE 10MG TABLET PO SCH ×2 (09:00→09:22)
[2022-02-25] MEDS: CLOPIDOGREL 75MG TABLET PO SCH ×2 (09:00→09:22)
[2022-02-25] MEDS: INSULIN LISPRO 100 UNITS/ML SUBCUT SCH ×4 (09:22→21:49)
[2022-02-25 09:48] LABS: HDL CHOLESTEROL 38 mg/dL (40-59)
[2022-02-25 12:00] VITALS: BP 137/91
[2022-02-25] MEDS ORDERED: HALOPERIDOL LACTATE 5MG/ML VIAL IM PRN (12:15)
[2022-02-25 16:00] VITALS: BP 150/103
[2022-02-25] MEDS: LEVETIRACETAM 500MG PREMIX 100 ML IV SCH ×2 (17:54→21:23)
[2022-02-25 20:00] VITALS: BP 120/70
[2022-02-25] MEDS: DOXEPIN HCL 25MG CAPSULE PO SCH (21:23)
[2022-02-25] MEDS: MIRTAZAPINE 15MG TABLET PO SCH (21:24)
[2022-02-26] VITALS: BP 118/70
[2022-02-26 04:00] VITALS: BP 116/68
[2022-02-26] MEDS: GABAPENTIN 100MG CAPSULE PO SCH ×3 (06:23→21:55)
[2022-02-26] MEDS: BLOOD SUGAR DIAGNOSTIC STRIP TEST SCH ×4 (07:20→21:00)
[2022-02-26 07:53] LABS: BASOPHILS % 0.8 % (0.0-2.0); EOSINOPHILS % 4.6 % (0.0-5.0); HEMATOCRIT. 34.1 % (42.0-52.0); HEMOGLOBIN. 11.4 g/dL (14.0-18.0); LYMPHOCYTES % 22.1 % (20.0-50.0); MEAN CORPUSCULAR HEMOGLOBIN 26.6 pg (28.0-32.0); MEAN CORPUSCULAR VOLUME 79.9 fL (80.0-94.0); MEAN PLATELET VOLUME 10.1 fl (7.4-10.4); MONOCYTES % 9.5 % (2.0-8.0); PLATELET 136 x1000/uL (130-400); RED BLOOD CELL COUNT 4.27 mill/uL (4.7-6.1); RED CELL DISTRIBUTION WIDTH 17.2 % (11.6-14.6)
[2022-02-26 07:58] LABS: CHLORIDE 103 mEq/L (98-107)
[2022-02-26 08:00] VITALS: BP 131/88
[2022-02-26] MEDS: OMEPRAZOLE 20MG CAPSULE EXTENDED RELEASE PO SCH (08:52)
[2022-02-26] MEDS: APIXABAN 2.5 MG TABLET PO SCH ×2 (08:52→17:14)
[2022-02-26] MEDS: CARVEDILOL 6.25 MG TABLET PO SCH ×2 (08:52→17:14)
[2022-02-26] MEDS: POTASSIUM CHLORIDE 20MEQ TABLET SR PO SCH (08:52)
[2022-02-26] MEDS: CLOPIDOGREL 75MG TABLET PO SCH (08:53)
[2022-02-26] MEDS: FUROSEMIDE 40MG TABLET PO SCH (08:53)
[2022-02-26] MEDS: RISPERIDONE 0.5MG TABLET PO SCH (08:53)
[2022-02-26] MEDS: LOSARTAN POTASSIUM 25 MG TABLET PO SCH (08:53)
[2022-02-26] MEDS: HYDROCODONE/ACETAMINOPHEN 5/325MG TABLET PO PRN ×3 (08:53→17:14)
[2022-02-26] MEDS: LEVETIRACETAM 500MG PREMIX 100 ML IV SCH (08:54)
[2022-02-26] MEDS: INSULIN LISPRO 100 UNITS/ML SUBCUT SCH ×4 (08:59→21:00)
[2022-02-26 12:00] VITALS: BP 125/76
[2022-02-26 16:00] VITALS: BP 115/75
[2022-02-26] MEDS: RISPERIDONE 1MG TABLET PO SCH (17:14)
[2022-02-26 20:00] VITALS: BP_SYST 133; BP_SYST 85; BP_DIAS 60; BP_DIAS 67
[2022-02-26] MEDS: LEVETIRACETAM 500MG TABLET PO SCH (21:50)
[2022-02-26] MEDS: DOXEPIN HCL 25MG CAPSULE PO SCH (21:50)
[2022-02-26] MEDS: HALOPERIDOL LACTATE 5MG/ML VIAL IM PRN (21:51)
[2022-02-26] MEDS: MIRTAZAPINE 15MG TABLET PO SCH (21:55)
[2022-02-27] VITALS (8 sets, daily range): BP systolic 85–142; BP diastolic 60–94
[2022-02-27] MEDS: GABAPENTIN 100MG CAPSULE PO SCH ×3 (06:00→21:00)
[2022-02-27] MEDS: BLOOD SUGAR DIAGNOSTIC STRIP TEST SCH ×5 (06:53→20:32)
[2022-02-27] MEDS: INSULIN LISPRO 100 UNITS/ML SUBCUT SCH ×4 (06:54→20:32)
[2022-02-27] MEDS: OMEPRAZOLE 20MG CAPSULE EXTENDED RELEASE PO SCH (06:54)
[2022-02-27] MEDS: APIXABAN 2.5 MG TABLET PO SCH ×2 (09:00→17:53)
[2022-02-27] MEDS: RISPERIDONE 1MG TABLET PO SCH ×3 (09:00→17:53)
[2022-02-27] MEDS: CARVEDILOL 6.25 MG TABLET PO SCH ×2 (09:00→17:53)
[2022-02-27 12:06] LABS: BG BASE EXCESS 4.6 mmol/L (-2.0-2.0); BG CARBOXYHEMOGLOBIN 0.4 % (0.5-1.5); BG HCO3 ACT 29.4 mmol/L (22.0-26.0); BG METHEMOGLOBIN 0.2 % (0.0-1.5); BG OXYHEMOGLOBIN 96.4 % (94.0-97.0); BG PCO2 44.2 mmHg (35.0-45.0); BG PH 7.441 (7.350-7.450); BG PO2 91.9 mmHg (75.0-100.0); BG SAMPLE SITE LEFT RADIAL; BG TOTAL HEMOGLOBIN 13.4 g/dL (12.0-18.0); BG VENT MODE ROOM AIR
[2022-02-27] MEDS: LOSARTAN POTASSIUM 25 MG TABLET PO SCH (14:23)
[2022-02-27] MEDS: CLOPIDOGREL 75MG TABLET PO SCH (14:23)
[2022-02-27] MEDS: LEVETIRACETAM 500MG TABLET PO SCH ×2 (14:24→20:57)
[2022-02-27] MEDS: POTASSIUM CHLORIDE 20MEQ TABLET SR PO SCH (14:24)
[2022-02-27] MEDS: FUROSEMIDE 40MG TABLET PO SCH (14:24)
[2022-02-27] MEDS: HYDROCODONE/ACETAMINOPHEN 5/325MG TABLET PO PRN (17:54)
[2022-02-27 18:08] LABS: PARTIAL THROMBOPLASTIN TIME 27.9 sec (23.4-31.0); PROTHROMBIN TIME 10.9 sec (9.6-11.0)
[2022-02-27] MEDS ORDERED: LORAZEPAM 2MG/ML CPJ IV PRN (20:30)
[2022-02-27] MEDS: DOXEPIN HCL 25MG CAPSULE PO SCH (20:57)
[2022-02-27] MEDS: MIRTAZAPINE 15MG TABLET PO SCH (20:57)
[2022-02-27] MEDS: HALOPERIDOL LACTATE 5MG/ML VIAL IM PRN (23:35)
[2022-02-28] VITALS: BP 109/79
[2022-02-28] MEDS ORDERED: HALOPERIDOL LACTATE 5MG/ML VIAL IM NR (02:45)
[2022-02-28 03:44] VITALS: BP 110/72
[2022-02-28] MEDS: GABAPENTIN 100MG CAPSULE PO SCH ×3 (06:35→21:28)
[2022-02-28] MEDS: OMEPRAZOLE 20MG CAPSULE EXTENDED RELEASE PO SCH (06:35)
[2022-02-28] MEDS: BLOOD SUGAR DIAGNOSTIC STRIP TEST SCH ×4 (06:53→21:29)
[2022-02-28] MEDS: RISPERIDONE 1MG TABLET PO SCH ×2 (08:15→18:09)
[2022-02-28] MEDS: FUROSEMIDE 40MG TABLET PO SCH (08:15)
[2022-02-28] MEDS: CLOPIDOGREL 75MG TABLET PO SCH (08:15)
[2022-02-28] MEDS: LOSARTAN POTASSIUM 25 MG TABLET PO SCH (08:15)
[2022-02-28] MEDS: POTASSIUM CHLORIDE 20MEQ TABLET SR PO SCH (08:15)
[2022-02-28] MEDS: INSULIN LISPRO 100 UNITS/ML SUBCUT SCH ×4 (08:17→21:30)
[2022-02-28] MEDS: CARVEDILOL 6.25 MG TABLET PO SCH ×2 (08:20→18:09)
[2022-02-28] MEDS: LEVETIRACETAM 500MG TABLET PO SCH ×2 (08:25→21:28)
[2022-02-28] MEDS: APIXABAN 2.5 MG TABLET PO SCH ×2 (08:25→18:09)
[2022-02-28] MEDS: HALOPERIDOL LACTATE 5MG/ML VIAL IM PRN (09:02)
[2022-02-28 16:25] VITALS: BP 137/96
[2022-02-28 20:00] VITALS: BP 154/101
[2022-02-28] MEDS: MIRTAZAPINE 15MG TABLET PO SCH (21:28)
[2022-02-28] MEDS: DOXEPIN HCL 25MG CAPSULE PO SCH (21:28)
[2022-03-01] VITALS: BP 136/92
[2022-03-01 04:00] VITALS: BP 127/85
[2022-03-01] MEDS: GABAPENTIN 100MG CAPSULE PO SCH ×3 (06:17→22:20)
[2022-03-01] MEDS: BLOOD SUGAR DIAGNOSTIC STRIP TEST SCH ×4 (07:20→21:00)
[2022-03-01 08:00] VITALS: BP 122/81
[2022-03-01] MEDS: RISPERIDONE 1MG TABLET PO SCH ×2 (08:37→17:42)
[2022-03-01] MEDS: APIXABAN 2.5 MG TABLET PO SCH ×2 (08:37→17:42)
[2022-03-01] MEDS: POTASSIUM CHLORIDE 20MEQ TABLET SR PO SCH (08:38)
[2022-03-01] MEDS: CARVEDILOL 6.25 MG TABLET PO SCH ×2 (08:38→17:42)
[2022-03-01] MEDS: LOSARTAN POTASSIUM 25 MG TABLET PO SCH (08:38)
[2022-03-01] MEDS: FUROSEMIDE 40MG TABLET PO SCH (08:38)
[2022-03-01] MEDS: LEVETIRACETAM 500MG TABLET PO SCH ×2 (08:38→22:20)
[2022-03-01] MEDS: FAMOTIDINE 20MG TABLET PO SCH ×2 (08:38→17:42)
[2022-03-01] MEDS: CLOPIDOGREL 75MG TABLET PO SCH (08:38)
[2022-03-01] MEDS: INSULIN LISPRO 100 UNITS/ML SUBCUT SCH ×4 (08:40→22:29)
[2022-03-01 09:00] LABS: BG BASE EXCESS 3.9 mmol/L (-2.0-2.0); BG CARBOXYHEMOGLOBIN 0.5 % (0.5-1.5); BG DEOXYHEMOGLOBIN 2.1 % (0.0-5.0); BG HCO3 ACT 26.7 mmol/L (22.0-26.0); BG METHEMOGLOBIN 0.6 % (0.0-1.5); BG OXYGEN SATURATION 97.9 % (92.0-98.5); BG OXYHEMOGLOBIN 96.8 % (94.0-97.0); BG PCO2 34.6 mmHg (35.0-45.0); BG PH 7.506 (7.350-7.450); BG PO2 105.7 mmHg (75.0-100.0); BG SAMPLE SITE RIGHT BRACHIAL; BG TOTAL HEMOGLOBIN 13.4 g/dL (12.0-18.0); BG VENT MODE ROOM AIR
[2022-03-01 12:00] VITALS: BP 105/73
[2022-03-01] MEDS: QUETIAPINE FUMARATE 50MG TABLET PO PRN (14:28)
[2022-03-01 16:00] VITALS: BP 116/77
[2022-03-01 20:00] VITALS: BP 108/74
[2022-03-01] MEDS: DOXEPIN HCL 25MG CAPSULE PO SCH (22:20)
[2022-03-01] MEDS: MIRTAZAPINE 15MG TABLET PO SCH (22:20)
[2022-03-02] VITALS: BP 111/79
[2022-03-02 04:00] VITALS: BP 109/68
[2022-03-02] MEDS: BLOOD SUGAR DIAGNOSTIC STRIP TEST SCH ×3 (05:52→20:28)
[2022-03-02] MEDS: FAMOTIDINE 20MG TABLET PO SCH (06:28)
[2022-03-02] MEDS: GABAPENTIN 100MG CAPSULE PO SCH ×3 (06:28→21:00)
[2022-03-02] MEDS: INSULIN LISPRO 100 UNITS/ML SUBCUT SCH ×3 (06:29→20:53)
[2022-03-02 08:00] VITALS: BP 137/94
[2022-03-02 08:36] LABS: BG BASE EXCESS 2.6 mmol/L (-2.0-2.0); BG CARBOXYHEMOGLOBIN 0.3 % (0.5-1.5); BG DEOXYHEMOGLOBIN 2.4 % (0.0-5.0); BG FRACTION INSPIRED OXYGEN 21; BG HCO3 ACT 25.7 mmol/L (22.0-26.0); BG METHEMOGLOBIN 0.3 % (0.0-1.5); BG OXYGEN SATURATION 97.6 % (92.0-98.5); BG PCO2 35.1 mmHg (35.0-45.0); BG PH 7.483 (7.350-7.450); BG PO2 103.6 mmHg (75.0-100.0); BG SAMPLE SITE RIGHT RADIAL; BG TOTAL HEMOGLOBIN 13.2 g/dL (12.0-18.0); BG VENT MODE ROOM AIR
[2022-03-02] MEDS: RISPERIDONE 1MG TABLET PO SCH ×2 (09:21→16:37)
[2022-03-02] MEDS: LOSARTAN POTASSIUM 25 MG TABLET PO SCH (09:21)
[2022-03-02] MEDS: QUETIAPINE FUMARATE 50MG TABLET PO PRN ×3 (09:21→23:44)
[2022-03-02] MEDS: FUROSEMIDE 40MG TABLET PO SCH (09:21)
[2022-03-02] MEDS: LEVETIRACETAM 500MG TABLET PO SCH ×2 (09:21→20:52)
[2022-03-02] MEDS: CARVEDILOL 6.25 MG TABLET PO SCH (09:22)
[2022-03-02] MEDS: APIXABAN 2.5 MG TABLET PO SCH ×2 (09:22→16:36)
[2022-03-02] MEDS: CLOPIDOGREL 75MG TABLET PO SCH (09:22)
[2022-03-02] MEDS: POTASSIUM CHLORIDE 20MEQ TABLET SR PO SCH (09:22)
[2022-03-02 12:24] VITALS: BP 136/79
[2022-03-02] MEDS ORDERED: INSULIN GLARGINE 100 UNITS/ML SUBCUT NR (14:30)
[2022-03-02 16:00] VITALS: BP 105/66
[2022-03-02 20:00] VITALS: BP 112/63
[2022-03-02] MEDS: DOXEPIN HCL 25MG CAPSULE PO SCH (20:52)
[2022-03-02] MEDS: MIRTAZAPINE 15MG TABLET PO SCH (20:52)
[2022-03-02] MEDS: INSULIN GLARGINE 100 UNITS/ML SUBCUT SCH (22:21)
[2022-03-03] VITALS: BP 121/71
[2022-03-03 04:00] VITALS: BP 130/85
[2022-03-03] MEDS: BLOOD SUGAR DIAGNOSTIC STRIP TEST SCH ×4 (06:24→21:03)
[2022-03-03] MEDS: GABAPENTIN 100MG CAPSULE PO SCH ×3 (06:24→21:01)
[2022-03-03 08:10] VITALS: BP 153/104
[2022-03-03] MEDS: ACETAMINOPHEN 325MG TABLET PO PRN (08:19)
[2022-03-03] MEDS: APIXABAN 2.5 MG TABLET PO SCH ×2 (08:19→17:43)
[2022-03-03] MEDS: FUROSEMIDE 40MG TABLET PO SCH (08:19)
[2022-03-03] MEDS: CLOPIDOGREL 75MG TABLET PO SCH (08:19)
[2022-03-03] MEDS: POTASSIUM CHLORIDE 20MEQ TABLET SR PO SCH (08:20)
[2022-03-03] MEDS: LEVETIRACETAM 500MG TABLET PO SCH ×2 (08:20→21:01)
[2022-03-03] MEDS: RISPERIDONE 1MG TABLET PO SCH ×2 (08:20→17:43)
[2022-03-03] MEDS: CARVEDILOL 6.25 MG TABLET PO SCH ×2 (08:23→17:43)
[2022-03-03] MEDS: LOSARTAN POTASSIUM 25 MG TABLET PO SCH (08:24)
[2022-03-03] MEDS: INSULIN LISPRO 100 UNITS/ML SUBCUT SCH ×4 (08:59→21:02)
[2022-03-03] MEDS: FAMOTIDINE 20MG TABLET PO SCH (10:00)
[2022-03-03] MEDS: INSULIN GLARGINE 100 UNITS/ML SUBCUT SCH ×2 (11:33→21:03)
[2022-03-03 12:00] VITALS: BP 107/68
[2022-03-03 15:50] VITALS: BP 149/101
[2022-03-03 20:00] VITALS: BP 100/55
[2022-03-03] MEDS: MIRTAZAPINE 15MG TABLET PO SCH (21:01)
[2022-03-03] MEDS: DOXEPIN HCL 25MG CAPSULE PO SCH (21:01)
[2022-03-04] VITALS: BP 119/71
[2022-03-04 05:13] VITALS: BP 142/79
[2022-03-04] MEDS: GABAPENTIN 100MG CAPSULE PO SCH ×4 (06:21→21:44)
[2022-03-04] MEDS: BLOOD SUGAR DIAGNOSTIC STRIP TEST SCH ×4 (06:21→21:43)
[2022-03-04 08:00] VITALS: BP 145/96
[2022-03-04] MEDS: LOSARTAN POTASSIUM 25 MG TABLET PO SCH (08:13)
[2022-03-04] MEDS: RISPERIDONE 1MG TABLET PO SCH ×2 (08:13→17:32)
[2022-03-04] MEDS: APIXABAN 2.5 MG TABLET PO SCH ×2 (08:13→17:32)
[2022-03-04] MEDS: POTASSIUM CHLORIDE 20MEQ TABLET SR PO SCH (08:13)
[2022-03-04] MEDS: CLOPIDOGREL 75MG TABLET PO SCH (08:13)
[2022-03-04] MEDS: FUROSEMIDE 40MG TABLET PO SCH (08:13)
[2022-03-04] MEDS: LEVETIRACETAM 500MG TABLET PO SCH ×2 (08:13→21:43)
[2022-03-04] MEDS: ACETAMINOPHEN 325MG TABLET PO PRN (08:13)
[2022-03-04] MEDS: CARVEDILOL 6.25 MG TABLET PO SCH ×2 (08:14→17:32)
[2022-03-04] MEDS: INSULIN LISPRO 100 UNITS/ML SUBCUT SCH ×4 (08:25→21:00)
[2022-03-04] MEDS: INSULIN GLARGINE 100 UNITS/ML SUBCUT SCH ×2 (11:35→21:45)
[2022-03-04 12:00] VITALS: BP 106/59
[2022-03-04 16:00] VITALS: BP 143/93
[2022-03-04 16:43] LABS: HEMOGLOBIN 11.6 g/dL (14.0-18.0); MEAN CORPUSCULAR HEMOGLOBIN 27.3 pg (28.0-32.0); PLATELET 181 x1000/uL (130-400); RED BLOOD CELL COUNT 4.25 mill/uL (4.7-6.1); RED CELL DISTRIBUTION WIDTH 17.2 % (11.6-14.6)
[2022-03-04 18:02] LABS: CHLORIDE 105 mEq/L (98-107)
[2022-03-04 20:00] VITALS: BP 140/96
[2022-03-04] MEDS: DOXEPIN HCL 25MG CAPSULE PO SCH (21:43)
[2022-03-04] MEDS: MIRTAZAPINE 15MG TABLET PO SCH (21:43)
[2022-03-04] MEDS: QUETIAPINE FUMARATE 50MG TABLET PO PRN (21:43)
[2022-03-05] VITALS: BP 147/99
[2022-03-05 04:00] VITALS: BP 144/98
[2022-03-05] MEDS: GABAPENTIN 100MG CAPSULE PO SCH ×3 (06:20→21:37)
[2022-03-05] MEDS: ACETAMINOPHEN 325MG TABLET PO PRN (06:31)
[2022-03-05] MEDS: BLOOD SUGAR DIAGNOSTIC STRIP TEST SCH ×4 (06:32→21:54)
[2022-03-05] MEDS: INSULIN LISPRO 100 UNITS/ML SUBCUT SCH ×4 (06:33→21:47)
[2022-03-05 08:00] VITALS: BP 132/80
[2022-03-05] MEDS: LOSARTAN POTASSIUM 25 MG TABLET PO SCH (08:58)
[2022-03-05] MEDS: POTASSIUM CHLORIDE 20MEQ TABLET SR PO SCH (08:58)
[2022-03-05] MEDS: FUROSEMIDE 40MG TABLET PO SCH (08:58)
[2022-03-05] MEDS: RISPERIDONE 1MG TABLET PO SCH ×2 (08:58→17:08)
[2022-03-05] MEDS: LEVETIRACETAM 500MG TABLET PO SCH ×2 (08:58→21:37)
[2022-03-05] MEDS: CLOPIDOGREL 75MG TABLET PO SCH (08:58)
[2022-03-05] MEDS: APIXABAN 2.5 MG TABLET PO SCH ×2 (08:59→17:08)
[2022-03-05] MEDS: CARVEDILOL 6.25 MG TABLET PO SCH ×2 (09:05→17:08)
[2022-03-05] MEDS: INSULIN GLARGINE 100 UNITS/ML SUBCUT SCH ×2 (09:08→21:47)
[2022-03-05 12:00] VITALS: BP 121/77
[2022-03-05 16:00] VITALS: BP 133/77
[2022-03-05 20:15] VITALS: BP 142/96
[2022-03-05] MEDS: MIRTAZAPINE 15MG TABLET PO SCH (21:37)
[2022-03-05] MEDS: DOXEPIN HCL 25MG CAPSULE PO SCH (21:50)
[2022-03-06] MEDS: BLOOD SUGAR DIAGNOSTIC STRIP TEST SCH ×4 (07:20→22:29)
[2022-03-06] MEDS: GABAPENTIN 100MG CAPSULE PO SCH ×3 (07:29→22:22)
[2022-03-06] MEDS: QUETIAPINE FUMARATE 50MG TABLET PO PRN (07:29)
[2022-03-06 08:19] VITALS: BP 141/96
[2022-03-06] MEDS: LOSARTAN POTASSIUM 25 MG TABLET PO SCH (08:49)
[2022-03-06] MEDS: CARVEDILOL 6.25 MG TABLET PO SCH ×2 (08:49→18:07)
[2022-03-06] MEDS: APIXABAN 2.5 MG TABLET PO SCH ×2 (08:49→18:07)
[2022-03-06] MEDS: POTASSIUM CHLORIDE 20MEQ TABLET SR PO SCH (08:49)
[2022-03-06] MEDS: LEVETIRACETAM 500MG TABLET PO SCH ×2 (08:49→22:22)
[2022-03-06] MEDS: FUROSEMIDE 40MG TABLET PO SCH (08:50)
[2022-03-06] MEDS: CLOPIDOGREL 75MG TABLET PO SCH (08:50)
[2022-03-06] MEDS: RISPERIDONE 1MG TABLET PO SCH ×2 (08:50→18:06)
[2022-03-06] MEDS: INSULIN LISPRO 100 UNITS/ML SUBCUT SCH ×4 (08:52→22:29)
[2022-03-06] MEDS: INSULIN GLARGINE 100 UNITS/ML SUBCUT SCH ×2 (10:40→22:23)
[2022-03-06 12:28] VITALS: BP 136/84
[2022-03-06 16:30] VITALS: BP 124/88
[2022-03-06 20:00] VITALS: BP 137/86
[2022-03-06] MEDS: MIRTAZAPINE 15MG TABLET PO SCH (22:22)
[2022-03-06] MEDS: DOXEPIN HCL 25MG CAPSULE PO SCH (22:22)
[2022-03-07] MEDS: QUETIAPINE FUMARATE 50MG TABLET PO PRN ×2 (01:39→23:24)
[2022-03-07] MEDS: ACETAMINOPHEN 325MG TABLET PO PRN ×3 (01:39→19:56)
[2022-03-07 01:45] VITALS: BP 153/102
[2022-03-07] MEDS: BLOOD SUGAR DIAGNOSTIC STRIP TEST SCH ×4 (06:48→20:25)
[2022-03-07] MEDS: GABAPENTIN 100MG CAPSULE PO SCH ×3 (06:48→20:19)
[2022-03-07 07:56] VITALS: BP 104/71
[2022-03-07] MEDS: INSULIN LISPRO 100 UNITS/ML SUBCUT SCH ×4 (09:33→20:16)
[2022-03-07] MEDS: INSULIN GLARGINE 100 UNITS/ML SUBCUT SCH ×2 (09:34→20:17)
[2022-03-07] MEDS: FUROSEMIDE 40MG TABLET PO SCH (09:35)
[2022-03-07] MEDS: POTASSIUM CHLORIDE 20MEQ TABLET SR PO SCH (09:35)
[2022-03-07] MEDS: RISPERIDONE 1MG TABLET PO SCH ×2 (09:35→17:35)
[2022-03-07] MEDS: APIXABAN 2.5 MG TABLET PO SCH ×2 (09:35→17:35)
[2022-03-07] MEDS: CLOPIDOGREL 75MG TABLET PO SCH (09:35)
[2022-03-07] MEDS: CARVEDILOL 6.25 MG TABLET PO SCH ×2 (09:36→17:37)
[2022-03-07] MEDS: LEVETIRACETAM 500MG TABLET PO SCH ×2 (09:36→20:17)
[2022-03-07] MEDS: LOSARTAN POTASSIUM 25 MG TABLET PO SCH (09:38)
[2022-03-07 12:00] VITALS: BP 126/76
[2022-03-07 16:00] VITALS: BP 112/73
[2022-03-07] MEDS ORDERED: LORAZEPAM 0.5MG TABLET PO NR (16:45)
[2022-03-07 20:00] VITALS: BP 104/62
[2022-03-07] MEDS: MIRTAZAPINE 15MG TABLET PO SCH (20:17)
[2022-03-07] MEDS: DOXEPIN HCL 25MG CAPSULE PO SCH (20:17)
[2022-03-08] VITALS (7 sets, daily range): BP systolic 99–158; BP diastolic 59–96
[2022-03-08] MEDS: GABAPENTIN 100MG CAPSULE PO SCH (05:08)
[2022-03-08] MEDS: BLOOD SUGAR DIAGNOSTIC STRIP TEST SCH ×4 (05:09→21:23)
[2022-03-08] MEDS: APIXABAN 2.5 MG TABLET PO SCH ×2 (08:23→17:17)
[2022-03-08] MEDS: POTASSIUM CHLORIDE 20MEQ TABLET SR PO SCH (08:23)
[2022-03-08] MEDS: LEVETIRACETAM 500MG TABLET PO SCH ×2 (08:23→21:00)
[2022-03-08] MEDS: FUROSEMIDE 40MG TABLET PO SCH (08:23)
[2022-03-08] MEDS: CARVEDILOL 6.25 MG TABLET PO SCH ×2 (08:24→17:17)
[2022-03-08] MEDS: LOSARTAN POTASSIUM 25 MG TABLET PO SCH (08:24)
[2022-03-08] MEDS: ACETAMINOPHEN 325MG TABLET PO PRN (08:24)
[2022-03-08] MEDS: INSULIN LISPRO 100 UNITS/ML SUBCUT SCH ×4 (08:29→21:04)
[2022-03-08] MEDS: CLOPIDOGREL 75MG TABLET PO SCH (09:01)
[2022-03-08] MEDS: RISPERIDONE 1MG TABLET PO SCH ×2 (09:01→17:16)
[2022-03-08] MEDS: TRAMADOL 50MG TABLET PO PRN ×3 (09:02→23:23)
[2022-03-08] MEDS: INSULIN GLARGINE 100 UNITS/ML SUBCUT SCH ×2 (11:53→21:02)
[2022-03-08] MEDS: QUETIAPINE FUMARATE 50MG TABLET PO SCH ×2 (13:00→17:16)
[2022-03-08] MEDS: GABAPENTIN 300MG CAPSULE PO SCH ×2 (14:00→21:01)
[2022-03-08] MEDS ORDERED: NALOXONE HCL 0.4MG/ML VIAL IV PRN (18:00)
[2022-03-08] MEDS: MIRTAZAPINE 15MG TABLET PO SCH (21:01)
[2022-03-08] MEDS: DOXEPIN HCL 25MG CAPSULE PO SCH (21:01)
[2022-03-08] MEDS: QUETIAPINE FUMARATE 50MG TABLET PO PRN (23:19)
[2022-03-09 01:51] VITALS: BP 160/88
[2022-03-09 04:56] VITALS: BP 168/80
[2022-03-09] MEDS: GABAPENTIN 300MG CAPSULE PO SCH ×3 (05:28→20:36)
[2022-03-09] MEDS: BLOOD SUGAR DIAGNOSTIC STRIP TEST SCH ×4 (06:34→20:43)
[2022-03-09] MEDS: INSULIN LISPRO 100 UNITS/ML SUBCUT SCH ×4 (07:50→20:43)
[2022-03-09 08:00] VITALS: BP 129/89
[2022-03-09] MEDS: RISPERIDONE 1MG TABLET PO SCH ×2 (10:01→18:23)
[2022-03-09] MEDS: CLOPIDOGREL 75MG TABLET PO SCH (10:01)
[2022-03-09] MEDS: CARVEDILOL 6.25 MG TABLET PO SCH ×2 (10:01→18:24)
[2022-03-09] MEDS: FUROSEMIDE 40MG TABLET PO SCH (10:01)
[2022-03-09] MEDS: QUETIAPINE FUMARATE 50MG TABLET PO SCH ×3 (10:07→18:24)
[2022-03-09] MEDS: DOXEPIN HCL 25MG CAPSULE PO SCH (10:08)
[2022-03-09] MEDS: LEVETIRACETAM 500MG TABLET PO SCH ×2 (10:08→20:36)
[2022-03-09] MEDS: LOSARTAN POTASSIUM 25 MG TABLET PO SCH (10:08)
[2022-03-09] MEDS: APIXABAN 2.5 MG TABLET PO SCH ×2 (10:08→18:26)
[2022-03-09] MEDS: TRAMADOL 50MG TABLET PO PRN ×2 (10:09→20:35)
[2022-03-09] MEDS: INSULIN GLARGINE 100 UNITS/ML SUBCUT SCH ×2 (12:59→22:12)
[2022-03-09 20:00] VITALS: BP 132/85
[2022-03-09] MEDS: MIRTAZAPINE 15MG TABLET PO SCH (20:36)
[2022-03-10] VITALS: BP 121/78
[2022-03-10 04:00] VITALS: BP 138/88
[2022-03-10] MEDS: GABAPENTIN 300MG CAPSULE PO SCH ×3 (06:29→21:24)
[2022-03-10] MEDS: BLOOD SUGAR DIAGNOSTIC STRIP TEST SCH ×4 (07:41→19:58)
[2022-03-10] MEDS: INSULIN LISPRO 100 UNITS/ML SUBCUT SCH ×4 (07:50→21:37)
[2022-03-10 08:00] VITALS: BP 159/93
[2022-03-10] MEDS: INSULIN GLARGINE 100 UNITS/ML SUBCUT SCH ×2 (10:00→21:37)
[2022-03-10] MEDS: QUETIAPINE FUMARATE 50MG TABLET PO SCH ×3 (10:11→17:36)
[2022-03-10] MEDS: RISPERIDONE 1MG TABLET PO SCH ×2 (10:11→17:33)
[2022-03-10] MEDS: LOSARTAN POTASSIUM 25 MG TABLET PO SCH (10:12)
[2022-03-10] MEDS: CARVEDILOL 6.25 MG TABLET PO SCH ×2 (10:12→17:32)
[2022-03-10] MEDS: CLOPIDOGREL 75MG TABLET PO SCH (10:12)
[2022-03-10] MEDS: TRAMADOL 50MG TABLET PO PRN ×3 (10:12→21:26)
[2022-03-10] MEDS: FUROSEMIDE 40MG TABLET PO SCH (10:12)
[2022-03-10] MEDS: LEVETIRACETAM 500MG TABLET PO SCH ×2 (10:13→21:26)
[2022-03-10] MEDS: APIXABAN 2.5 MG TABLET PO SCH ×2 (10:16→17:36)
[2022-03-10 12:00] VITALS: BP 100/63
[2022-03-10] MEDS: MIRTAZAPINE 15MG TABLET PO SCH (21:24)
[2022-03-10] MEDS: DOXEPIN HCL 25MG CAPSULE PO SCH (21:24)
[2022-03-11] VITALS (7 sets, daily range): BP systolic 95–141; BP diastolic 58–89
[2022-03-11] MEDS: TRAMADOL 50MG TABLET PO PRN ×2 (03:31→10:01)
[2022-03-11] MEDS: GABAPENTIN 300MG CAPSULE PO SCH ×3 (05:44→21:35)
[2022-03-11] MEDS: BLOOD SUGAR DIAGNOSTIC STRIP TEST SCH ×4 (06:02→21:00)
[2022-03-11] MEDS: INSULIN LISPRO 100 UNITS/ML SUBCUT SCH ×4 (07:50→21:00)
[2022-03-11] MEDS: LEVETIRACETAM 500MG TABLET PO SCH ×2 (10:00→21:34)
[2022-03-11] MEDS: QUETIAPINE FUMARATE 50MG TABLET PO SCH ×3 (10:00→17:20)
[2022-03-11] MEDS: CLOPIDOGREL 75MG TABLET PO SCH (10:00)
[2022-03-11] MEDS: CARVEDILOL 6.25 MG TABLET PO SCH ×2 (10:00→17:20)
[2022-03-11] MEDS: APIXABAN 2.5 MG TABLET PO SCH ×2 (10:00→17:00)
[2022-03-11] MEDS: RISPERIDONE 1MG TABLET PO SCH ×2 (10:00→17:20)
[2022-03-11] MEDS: LOSARTAN POTASSIUM 25 MG TABLET PO SCH (10:01)
[2022-03-11] MEDS: FUROSEMIDE 40MG TABLET PO SCH (10:01)
[2022-03-11] MEDS: INSULIN GLARGINE 100 UNITS/ML SUBCUT SCH ×2 (10:06→21:56)
[2022-03-11] MEDS: DOXEPIN HCL 25MG CAPSULE PO SCH (21:35)
[2022-03-11] MEDS: MIRTAZAPINE 15MG TABLET PO SCH (21:35)
[2022-03-11] MEDS: QUETIAPINE FUMARATE 50MG TABLET PO PRN (21:40)
[2022-03-12] VITALS: BP 144/90
[2022-03-12] MEDS: TRAMADOL 50MG TABLET PO PRN ×3 (01:51→11:12)
[2022-03-12 04:00] VITALS: BP 151/100
[2022-03-12] MEDS: GABAPENTIN 300MG CAPSULE PO SCH ×2 (06:15→14:50)
[2022-03-12 07:04] LABS: HEMATOCRIT 31.4 % (42.0-52.0); HEMOGLOBIN 10.7 g/dL (14.0-18.0); MEAN CORPUSCULAR HEMOGLOBIN 27.3 pg (28.0-32.0); MEAN CORPUSCULAR VOLUME 80.3 fL (80.0-94.0); PLATELET 224 x1000/uL (130-400); RED BLOOD CELL COUNT 3.92 mill/uL (4.7-6.1)
[2022-03-12] MEDS: INSULIN LISPRO 100 UNITS/ML SUBCUT SCH ×2 (07:50→12:46)
[2022-03-12 08:00] VITALS: BP 140/83
[2022-03-12] MEDS ORDERED: APIXABAN 2.5 MG TABLET PO SCH (09:00)
[2022-03-12] MEDS: QUETIAPINE FUMARATE 50MG TABLET PO SCH ×2 (09:05→12:44)
[2022-03-12] MEDS: RISPERIDONE 1MG TABLET PO SCH (09:06)
[2022-03-12] MEDS: CLOPIDOGREL 75MG TABLET PO SCH (09:06)
[2022-03-12] MEDS: FUROSEMIDE 40MG TABLET PO SCH (09:06)
[2022-03-12] MEDS: LOSARTAN POTASSIUM 25 MG TABLET PO SCH (09:06)
[2022-03-12] MEDS: LEVETIRACETAM 500MG TABLET PO SCH (09:06)
[2022-03-12] MEDS: CARVEDILOL 6.25 MG TABLET PO SCH (09:06)
[2022-03-12] MEDS: INSULIN GLARGINE 100 UNITS/ML SUBCUT SCH (09:15)
[2022-03-12 12:00] VITALS: BP 111/67
[2022-03-12] MEDS: BLOOD SUGAR DIAGNOSTIC STRIP TEST SCH (12:46)
[2022-03-12 13:04] VITALS: BP 111/67
[2022-03-12 13:23] VITALS: BP 111/67
== END 2022-03-12 15:35 | DRG 41 ==
LOC: ER 13:20 → 6WST 16:40 → EDBEDREQ 16:58 → ENRESERV 20:33 → 6EST 03-07 10:50
PROVIDERS: ADMIT Internal Medicine; ATTEND Internal Medicine
PROC: 02HV33Z Insertion of Infusion Device into Superior Vena Cava, Percutaneous Approach (ICD-10-PCS; 2022-02-25)
PROC: B5181ZA Fluoroscopy of Superior Vena Cava using Low Osmolar Contrast, Guidance (ICD-10-PCS; 2022-02-25)
PROC: B548ZZA Ultrasonography of Superior Vena Cava, Guidance (ICD-10-PCS; 2022-02-25)
PROC: 0LBW0ZZ Excision of Left Foot Tendon, Open Approach (ICD-10-PCS; principal; 2022-02-26)
PROC: 0JBR0ZZ Excision of Left Foot Subcutaneous Tissue and Fascia, Open Approach (ICD-10-PCS; 2022-03-11)
PROC: 0JBN0ZZ Excision of Right Lower Leg Subcutaneous Tissue and Fascia, Open Approach (ICD-10-PCS; 2022-03-11)
PROC: 0JBL0ZZ Excision of Right Upper Leg Subcutaneous Tissue and Fascia, Open Approach (ICD-10-PCS; 2022-03-11)
DX: I62.9 Nontraumatic intracranial hemorrhage, unspecified (principal); F03.93 Unspecified dementia, unspecified severity, with mood disturbance; F31.9 Bipolar disorder, unspecified; I50.9 Heart failure, unspecified; I11.0 Hypertensive heart disease with heart failure; J44.9 Chronic obstructive pulmonary disease, unspecified; Z20.822 Contact with and (suspected) exposure to COVID-19; E11.9 Type 2 diabetes mellitus without complications; E87.6 Hypokalemia; S81.811A Laceration without foreign body, right lower leg, initial encounter; D64.9 Anemia, unspecified; E78.00 Pure hypercholesterolemia, unspecified; R56.9 Unspecified convulsions; E78.5 Hyperlipidemia, unspecified; Z79.899 Other long term (current) drug therapy; Z79.01 Long term (current) use of anticoagulants; Z78.1 Physical restraint status; X58.XXXA Exposure to other specified factors, initial encounter; Y93.89 Activity, other specified; Y92.89 Other specified places as the place of occurrence of the external cause; Y99.8 Other external cause status
CPT/HCPCS: 36415; 36573; 36600; 70551; 71045; 80048; 80053; 80061; 81003; 82140; 82375; 82805; 82962; 83036; 83735; 83880; 84100; 84439; 84484; 85025; 85027; 85384; 86850; 86900; 87426; 92523; 93005; 93970; 97162; 97166; 97530; 97535; 99285; C1725; J1630; J1815; J1953; J2060; J7030

== ENCOUNTER 2022-06-27 06:06 | Inpatient (IN) | payer BC, MEDICAID ==
[~2022-06-27] VITALS: Ht 167.6 cm; Wt 76.2 kg
[~2022-06-27 06:06] MED LIST changes: +FAMO20TA8 MT; +LEVE500T19 MT; +RISP0.5T65 MT
[2022-06-27 06:59] LABS: CHLORIDE 103 mEq/L (98-107); EOSINOPHILS % 4.5 % (0.0-5.0); HEMATOCRIT. 30.9 % (42.0-52.0); HEMOGLOBIN. 10.4 g/dL (14.0-18.0); LYMPHOCYTES % 18.6 % (20.0-50.0); MEAN CORPUSCULAR HEMOGLOBIN 29.1 pg (28.0-32.0); MEAN CORPUSCULAR VOLUME 86.1 fL (80.0-94.0); MEAN PLATELET VOLUME 9.2 fl (7.4-10.4); MONOCYTES % 7.6 % (2.0-8.0); NEUTROPHILS % 68.3 % (40.0-76.0); PLATELET 242 x1000/uL (130-400); RED BLOOD CELL COUNT 3.59 mill/uL (4.7-6.1); RED CELL DISTRIBUTION WIDTH 13.3 % (11.6-14.6)
[2022-06-27 07:04] LABS: INR 1.1; PROTHROMBIN TIME 11.5 sec (9.6-11.0)
[2022-06-27 07:16] LABS: CLARITY URINE CLEAR (CLEAR); COLOR URINE YELLOW (YELLOW); KETONES URINE NEGATIVE (NEGATIVE); LEUKOCYTE ESTERASE URINE NEGATIVE (NEGATIVE); NITRITE URINE NEGATIVE (NEGATIVE); OCCULT BLOOD URINE NEGATIVE (NEGATIVE); PH URINE 6.5 (4.5-8.0); PROTEIN URINE NEGATIVE (NEGATIVE); SPECIFIC GRAVITY URINE 1.014 (1.005-1.030); UROBILINOGEN URINE 0.2 E.U./dL (0.2-1.0)
[2022-06-27 12:00] VITALS: BP 157/94
[2022-06-27 12:30] VITALS: BP 157/94
[2022-06-27 16:00] VITALS: BP 155/90
[2022-06-27] MEDS ORDERED: ONDANSETRON HCL 4MG/2ML INJ IV PRN (17:00)
[2022-06-27] MEDS ORDERED: DEXTROSE 50% WATER 50ML SYRINGE IV PRN (17:00)
[2022-06-27] MEDS ORDERED: ACETAMINOPHEN 325MG TABLET PO PRN (17:00)
[2022-06-27] MEDS: BLOOD SUGAR DIAGNOSTIC STRIP TEST SCH ×2 (18:03→20:59)
[2022-06-27] MEDS: INSULIN LISPRO 100 UNITS/ML SUBCUT SCH ×2 (18:05→21:03)
[2022-06-27] MEDS ORDERED: POTASSIUM CHLORIDE 20MEQ TABLET SR PO NR (18:30)
[2022-06-27 20:00] VITALS: BP 152/94
[2022-06-27] MEDS: DOXEPIN HCL 25MG CAPSULE PO SCH (20:57)
[2022-06-27] MEDS: MIRTAZAPINE 15MG TABLET PO SCH (20:57)
[2022-06-27] MEDS: RISPERIDONE 0.5MG TABLET PO SCH (20:57)
[2022-06-27] MEDS: ATORVASTATIN CALCIUM 40MG TABLET PO SCH (20:57)
[2022-06-27] MEDS: GABAPENTIN 100MG CAPSULE PO SCH (21:01)
[2022-06-28] VITALS: BP 159/91
[2022-06-28 00:52] LABS: CREATINE KINASE 143 IU/L (39-308)
[2022-06-28 04:00] VITALS: BP 157/90
[2022-06-28 06:03] LABS: CREATINE KINASE 115 IU/L (39-308)
[2022-06-28] MEDS: BLOOD SUGAR DIAGNOSTIC STRIP TEST SCH ×4 (06:36→21:00)
[2022-06-28] MEDS: INSULIN LISPRO 100 UNITS/ML SUBCUT SCH ×5 (06:42→22:13)
[2022-06-28] MEDS: GABAPENTIN 100MG CAPSULE PO SCH ×3 (06:59→22:00)
[2022-06-28 08:00] VITALS: BP 154/94
[2022-06-28] MEDS: LEVETIRACETAM 500MG TABLET PO SCH ×2 (08:15→17:49)
[2022-06-28] MEDS: CLOPIDOGREL 75MG TABLET PO SCH (08:15)
[2022-06-28] MEDS: ASPIRIN 81MG EC TABLET PO SCH (08:15)
[2022-06-28] MEDS: RISPERIDONE 0.5MG TABLET PO SCH ×2 (08:15→17:49)
[2022-06-28] MEDS: FUROSEMIDE 40MG TABLET PO SCH (08:16)
[2022-06-28] MEDS: LOSARTAN POTASSIUM 25 MG TABLET PO SCH (08:16)
[2022-06-28] MEDS: CARVEDILOL 6.25 MG TABLET PO SCH ×2 (08:16→17:49)
[2022-06-28 10:03] LABS: *AMPHETAMINES SCREEN URINE NEGATIVE (NEGATIVE); *BARBITURATES SCREEN URINE NEGATIVE (NEGATIVE); *BENZODIAZEPINES SCREEN URINE NEGATIVE (NEGATIVE); *COCAINE SCREEN URINE NEGATIVE (NEGATIVE); CANNABINOID URINE SCREEN NEGATIVE (NEGATIVE); METHADONE URINE SCREEN NEGATIVE (NEGATIVE); OPIATES URINE SCREEN NEGATIVE (NEGATIVE); PHENCYCLIDINE URINE SCREEN NEGATIVE (NEGATIVE)
[2022-06-28 12:00] VITALS: BP 150/80
[2022-06-28 16:00] VITALS: BP 158/91
[2022-06-28 20:00] VITALS: BP_SYST 112; BP_SYST 118; BP_DIAS 72; BP_DIAS 76
[2022-06-28] MEDS: ATORVASTATIN CALCIUM 40MG TABLET PO SCH (21:00)
[2022-06-28] MEDS: DOXEPIN HCL 25MG CAPSULE PO SCH (21:00)
[2022-06-28] MEDS: MIRTAZAPINE 15MG TABLET PO SCH (21:00)
[2022-06-29] VITALS: BP 130/80
[2022-06-29 04:00] VITALS: BP 148/80
[2022-06-29] MEDS: INSULIN LISPRO 100 UNITS/ML SUBCUT SCH ×4 (06:16→17:38)
[2022-06-29] MEDS: BLOOD SUGAR DIAGNOSTIC STRIP TEST SCH ×3 (06:18→17:37)
[2022-06-29] MEDS: GABAPENTIN 100MG CAPSULE PO SCH ×3 (06:19→20:16)
[2022-06-29 08:00] VITALS: BP 165/85
[2022-06-29] MEDS: CLOPIDOGREL 75MG TABLET PO SCH (09:17)
[2022-06-29] MEDS: ASPIRIN 81MG EC TABLET PO SCH (09:17)
[2022-06-29] MEDS: FUROSEMIDE 40MG TABLET PO SCH (09:17)
[2022-06-29] MEDS: LEVETIRACETAM 500MG TABLET PO SCH ×2 (09:17→17:36)
[2022-06-29] MEDS: RISPERIDONE 0.5MG TABLET PO SCH (09:17)
[2022-06-29] MEDS: LOSARTAN POTASSIUM 25 MG TABLET PO SCH (09:17)
[2022-06-29] MEDS: CARVEDILOL 6.25 MG TABLET PO SCH ×2 (09:17→17:37)
[2022-06-29] MEDS ORDERED: INSULIN GLARGINE 100 UNITS/ML SUBCUT NR (10:00)
[2022-06-29 12:00] VITALS: BP 116/86
[2022-06-29 12:47] VITALS: BP 147/93
[2022-06-29 16:00] VITALS: BP 147/93
[2022-06-29] MEDS ORDERED: RISPERIDONE 1MG TABLET PO SCH (17:00)
[2022-06-29] MEDS: MIRTAZAPINE 15MG TABLET PO SCH (20:16)
[2022-06-29] MEDS: ATORVASTATIN CALCIUM 40MG TABLET PO SCH (20:16)
[2022-06-29] MEDS: DOXEPIN HCL 25MG CAPSULE PO SCH (20:16)
[2022-06-29] MEDS ORDERED: INSULIN GLARGINE 100 UNITS/ML SUBCUT SCH (22:00)
== END 2022-06-29 20:28 | DRG 71 ==
LOC: ER 06:06 → 8WST 08:31 → EDBEDREQTM 08:32 → EDBEDREQ 08:32 → ENRESERV 10:58
PROVIDERS: ADMIT Internal Medicine; ATTEND Internal Medicine
DX: G93.41 Metabolic encephalopathy (principal); F03.92 Unspecified dementia, unspecified severity, with psychotic disturbance; E11.621 Type 2 diabetes mellitus with foot ulcer; E78.00 Pure hypercholesterolemia, unspecified; F31.9 Bipolar disorder, unspecified; I11.0 Hypertensive heart disease with heart failure; I50.9 Heart failure, unspecified; J44.9 Chronic obstructive pulmonary disease, unspecified; Z20.822 Contact with and (suspected) exposure to COVID-19; L97.529 Non-pressure chronic ulcer of other part of left foot with unspecified severity; E78.5 Hyperlipidemia, unspecified; S81.811A Laceration without foreign body, right lower leg, initial encounter; Z86.73 Personal history of transient ischemic attack (TIA), and cerebral infarction without residual deficits; Z79.899 Other long term (current) drug therapy; Z79.01 Long term (current) use of anticoagulants; Z79.02 Long term (current) use of antithrombotics/antiplatelets; X58.XXXA Exposure to other specified factors, initial encounter; Y93.89 Activity, other specified; Y92.89 Other specified places as the place of occurrence of the external cause; Y99.8 Other external cause status
CPT/HCPCS: 36415; 71045; 80053; 80305; 81003; 82550; 82962; 83036; 83605; 84145; 84484; 85025; 87426; 93005; 99285; J1815